=== PATIENT | female | born 1945 | race Caucasian/White ===

== ENCOUNTER 2018-03-10 22:05 | Inpatient (IN) ==
[2018-03-10] MEDS ORDERED: TYLENOL PO ONE (23:40)
--- NOTE | 2018-03-10 23:42 | PROVIDER DOCUMENTATION ---
This chart was entered by Jory Woodward Scribe, acting as scribe for Aj Venegas MD. HPI-General Adult - General Chief Complaint: General Adult Stated Complaint: COLD CHILLS Time Seen by Provider: 03/10/18 23:17 Source: patient, family (daughter and grandson at bedside) Allergies/Adverse Reactions: Patient Allergies Allergy/AdvReac Type Severity Reaction Status Date / Time codeine [Codeine] Allergy Intermediate passing out Verified 09/06/15 22:36 Home Medications: Home Medication List Medication Instructions Recorded Confirmed Last Taken Type Penicillin V Potassium 500 mg PO BID 03/08/12 09/06/15 09/06/15 History Methylcellulose [Citrucel] 500 mg PO BID 08/22/13 09/06/15 09/06/15 History Ondansetron Odt [Zofran Odt] 4 mg PO TID PRN PRN 12/16/14 09/06/15 09/06/15 History Citalopram [Celexa] 20 mg PO QAM #30 tablet 12/24/14 09/06/15 09/06/15 Rx Hyoscyamine Subl [Levsin-Sl] 0.125 mg SL TID #10 tablet 02/10/15 09/06/15 Rx Promethazine [Phenergan] 25 mg PO Q6H PRN PRN #20 tablet 02/10/15 09/06/1509/05 Rx - History of Present Illness -Gen Adult Nature of Presenting Problems: 72 yoyf c/o chills,fever, n/v, BLE pain and colostomy bag leaking. pt has hx rectal cancer, tonsillectomy, cholecystectomy and colon resection Location of Pain/Injury: reports: lower extremity (BLE) Quality of Pain: reports: fullness Severity: reports: moderate Onset/Duration: reports: this afternoon (0) Timing: reports: still present Context/Activities at Onset: reports: light activity Modifying Factors: improves with: nothing Associated Symptoms: reports: fever/chills, muscle aches, nausea, vomiting, other (colostomy bag leaking). denies: back/neck pain, diarrhea, headaches, weakness Similar Symptoms Previously?: Yes Recently seen or treated by another doctor?: Yes Review of Systems - Adult - REVIEW OF SYSTEMS - ADULT Constitutional: reports: see HPI, chills, fever. denies: fatique Eyes: reports: no symptoms reported Ears, Nose, Mouth & Throat: reports: no symptoms reported Cardiovascular: denies: chest pain, palpitations Respiratory: denies: cough, shortness of breath, wheezing Gastrointestinal: reports: see HPI, nausea, vomiting, other (colostomy bag leaking). denies: abdominal pain Genitourinary: reports: no symptoms reported Musculoskeletal: reports: see HPI, muscle aches, other (BLE edema) Integumentary: reports: no symptoms reported Neurological: denies: dizziness/vertigo, headache/migraines Psychiatric: reports: no symptoms reported Endocrine: reports: no symptoms reported Hematologic/Lymphatic: reports: no symptoms reported Allergic/Immunologic: reports: no symptoms reported All Other Systems: Reviewed and Negative Past History - Adult - PAST MEDICAL HISTORY-ADULT Review of Records: reports: Old Records Reviewed, Nursing Assessment Review, Medications Reviewed, Social history reviewed & non-contributory. Major Childhood Illnesses: reports: denies history Cardiovascular: reports: denies history Respiratory: reports: denies history Gastrointestinal: reports: cancer (hx of colon), obstruction Obstetrical/Gynecological: reports: denies history Genitourinary: reports: denies history Musculoskeletal: reports: chronic pain Neurological: reports: denies history 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) Other Conditions: reports: denies history - PRIOR SURGERIES/PROCEDURES Surgical/Procedure History: reports: cholecystectomy, tonsillectomy, other ( colostomy) - IMMUNIZATION STATUS Childhood Immunizations: See Nurse Assessment Flu Vaccine: See Nurse Assessment - FAMILY HISTORY Family History: reviewed, not pertinent - SOCIAL HISTORY Smoking: denies Substance Use: denies Alcohol Use Frequency: never Living Situation: family Physical Exam-General - PHYSICAL EXAM-ADULT Initial Vital Signs Reviewed: Yes - CONSTITUTIONAL General Appearance: alert, mild distress - EYES Eyes: PERRL/EOMI, pink conjunctivae - HEAD, EARS, NOSE, MOUTH & THROAT HENMT: moist mucous membranes, other (no teeth) - NECK Neck: full range of motion, normal inspection - RESPIRATORY Respiratory: chest non-tender, lungs clear, normal breath sounds - CARDIOVASCULAR Cardiovascular: normal peripheral pulses, regular rate, rhythm - GASTROINTESTINAL (ABDOMEN) Abdominal Exam: normal bowel sounds, soft, other (nausea and has colostomy in LLQ and is leaking on exam with redness noted) - GENITOURINARY Female Genitalia/Pelvic Exam: deferred Rectal Exam: deferred - LYMPHATIC Lymphatic: no adenopathy - MUSCULOSKELETAL Back Exam: normal inspection Extremity: pelvis stable, swelling (BLE edema but is at baseline) - SKIN Integumentary: normal turgor, warm/dry, pallor, swelling (BLE with redness), warm - NEUROLOGIC Neurologic: grossly normal, no motor/sensory deficits - PSYCHIATRIC Psych/Mental Status: normal mood/affect, normal thought content, normal thought process, oriented x 3 Progress - PLAN OF CARE/RESULTS Progress/Plan/Lab Results: Vital Signs - 8 hr 03/10/18 22:21 Temperature 98.9 F Pulse Rate 94 H Respiratory Rate 16 Blood Pressure 158/92 O2 Sat by Pulse Oximetry 95 Result Diagrams: 03/11/18 02:06 03/11/18 02:06 - REASSESSMENT Reassessment #1 Time Reassessed: 00:34 (dr at bedside) Status: unchanged Reassessment Comment: fever 101.1 Reassessment #2 Status: improving Reassessment Comment: improved turgor, good capillary refill, RRR - XRAY 1 XRAY: Bilateral XRAY Study: Chest Impression: See EMR Report - CONSULTS/PCP/HOSPITALIST Notification #1 *Consult/PCP/Hospitalist*: Dr. Kaplan Time Discussed: 03:40 Consult Disposition: Admit Departure - Departure Date of Disposition Decision: 03/11/18 Time of Disposition Decision: 03:41 DIAGNOSIS: Sepsis Qualifiers: Sepsis type: sepsis due to unspecified organism Qualified Code(s): A41.9 - Sepsis, unspecified organism Urinary tract infection Qualifiers: Urinary tract infection type: site unspecified Hematuria presence: with hematuria Qualified Code(s): N39.0 - Urinary tract infection, site not specified Leukocytosis Qualifiers: Leukocytosis type: unspecified Qualified Code(s): D72.829 - Elevated white blood cell count, unspecified Disposition: ADMITTED INPATIENT 09 Certified Medical Emergency: Emergent Condition: Stable Referrals and Follow-Ups: Josh Kaplan MD [Primary Care Provider] - - Critical Care Note This patient required my direct & personal management of CC.: No Total Time (mins): 241 Critical Care Statement: This patient required my direct personal management to treat or rule out processes, the absence of which, could potentiallly result in sudden, clinically significant life or limb threatening deterioration. Attestation - Physician/ [facility] Attestation Patient care was provided by Advanced Practice Provider:: No The physician spent face to face time with patient:: Yes Advanced Practice Provider documentation review:: Supervising physician onsite and consulted in the evaluation and care of this patient. The physician did have a face to face encounter with the patient. This chart was documented by the indicated scribe, (Jory Woodward Scribe) and accurately reflects the services I performed and decisions made by me, Aj Venegas MD, as attested by the provider's signature.
[2018-03-11 02:22] LABS: BASO# 0.03 X1000 (0.0-0.2); BASO% 0.2 % (0.0-0.8); HEMATOCRIT 32.7 % (37.0-47.0); HEMOGLOBIN 10.3 g/dL (12.0-16.0); IMM GRAN# 0.07 X1000 (0.0-0.04); IMM GRAN% 0.4 % (0.0-0.5); LYMPH# 0.33 X1000 (1.2-3.4); LYMPH% 1.7 % (20.5-51.1); MCH 30.5 PG (27-31); MCHC 31.5 g/dL (33-37); MCV 96.7 FL (81-99); MPV 9.4 FL (7.4-10.4); NEUT# 18.86 X1000 (1.4-6.5); NEUT% 95.7 % (42.2-75.2); PLT 290 X1000 (130-400); RBC 3.38 XMIL (4.2-5.4); RDW 14.8 % (11.5-14.5); WBC 19.69 X1000 (4.8-10.8)
[2018-03-11 02:29] LABS: BILIRUBIN URINE NEGATIVE (NEGATIVE); BLOOD URINE 2+ (NEGATIVE); CLARITY SL. CLOUDY (CLEAR); COLOR YELLOW; GLUCOSE URINE NEGATIVE (NEGATIVE); KETONE URINE NEGATIVE (NEGATIVE); LEUKOCYTES URINE 1+ (NEGATIVE); NITRITE URINE POSITIVE (NEGATIVE); PROTEIN URINE TRACE mg/dL (NEGATIVE); SP GRAVITY URINE 1.005; UROBILINOGEN URINE NORMAL
[2018-03-11 02:32] LABS: URINE BACTERIA 4+ /HFP
[2018-03-11 02:33] LABS: URINE EPITHELIAL CELLS <10 /HPF (<10); URINE RBC <10 /HPF (<10); URINE WBC TNTC /HPF (<10)
[2018-03-11 02:34] LABS: URINE SOURCE CLEAN CATCH
[2018-03-11 02:38] LABS: ALBUMIN 3.7 g/dL (3.5-5.0); CALCIUM 8.9 mg/dL (8.8-10.2); POTASSIUM 3.9 mmol/L (3.5-5.1); TOTAL BILIRUBIN 0.4 mg/dL (0.20-1.00); TOTAL PROTEIN 7.7 g/dL (6.3-8.3)
[2018-03-11] MEDS ORDERED: ZOSYN 3.375 GM in NS 50 ML IV ONE (03:33)
[2018-03-11] MEDS ORDERED: NS 1,000 ML IV ONE ×3 (03:36→03:42)
[2018-03-11] MEDS ORDERED: TYLENOL PO PRN (03:42)
[2018-03-11] MEDS ORDERED: ZOFRAN IV PRN (03:42)
[2018-03-11 07:07] LABS: URINE SOURCE CLEAN CATCH
[2018-03-11 07:21] LABS: BILIRUBIN URINE NEGATIVE (NEGATIVE); BLOOD URINE 1+ (NEGATIVE); CLARITY SL. CLOUDY (CLEAR); COLOR YELLOW; GLUCOSE URINE NEGATIVE (NEGATIVE); KETONE URINE NEGATIVE (NEGATIVE); LEUKOCYTES URINE 1+ (NEGATIVE); NITRITE URINE POSITIVE (NEGATIVE); PROTEIN URINE TRACE mg/dL (NEGATIVE); SP GRAVITY URINE 1.005; UROBILINOGEN URINE NORMAL
[2018-03-11 07:25] LABS: URINE BACTERIA 4+ /HFP; URINE EPITHELIAL CELLS <10 /HPF (<10); URINE WBC 20-40 /HPF (<10)
--- NOTE | 2018-03-11 07:50 | Diag Imaging Result Doc PS360 ---
EXAM: FLAT/UPRIGHT ABD/1 VIEW CHEST 03/10/2018 HISTORY: nausea and vomiting TECHNIQUE: Flat and upright abdomen with AP chest COMMENT: There is no evidence of bowel obstruction organomegaly or mass. There are numerous phleboliths in the pelvis. There is a left lower quadrant colostomy. Compared to the previous study of 02/10/2015 there is less bowel gas. The appearance the chest has not changed significantly. IMPRESSION: Nonspecific abdomen. Stable chest. Electronically signed by Cristofer Valdez 03/11/2018 7:48 AM
[2018-03-11] MEDS: ZOSYN 3.375 GM in NS 50 ML IV SCH ×3 (10:41→21:53)
[2018-03-11] MEDS: NS 1,000 ML IV SCH ×2 (11:24→21:54)
[2018-03-11] MEDS: LASIX PO SCH (12:13)
[2018-03-11] MEDS: CELEXA PO SCH (12:46)
[2018-03-11] MEDS: KLOR-CON PO SCH (12:46)
--- NOTE | 2018-03-11 13:37 | HISTORY AND PHYSICAL ---
CHIEF COMPLAINT: Fever. HISTORY OF PRESENT ILLNESS: The patient is a 72-year-old female, who presented to the ER with fevers and chills for the past couple of days. She has had some nausea and vomiting. Denies any hematemesis, melena or hematochezia. ALLERGIES: Codeine. MEDICATIONS: I do not have an accurate medication list. She does take Celexa and we will continue this and will readdress her home medications when available. REVIEW OF SYSTEMS: The patient notes that she has felt weak and fatigued. She is tired. She has had low-grade fevers and chills for the past several days. Feels as though she has had some urinary difficulty. She has had burning and pain with urination. Denies any constipation, melena, hematochezia. Denies any headaches blurred vision denies any focalized weakness. Denies any diarrhea. She has had some muscle aches. PAST MEDICAL HISTORY: Chronic lower extremity edema. History of colon cancer, currently has a colostomy. She has had recurrent colonic obstruction, chronic pain, lymphedema, chronic depression. She has had a cholecystectomy, tonsillectomy and colostomy as noted. FAMILY HISTORY: Noncontributory. SOCIAL HISTORY: Patient is , lives at home. Her daughter takes care of her. She denies smoking or drinking. PHYSICAL EXAMINATION: VITAL SIGNS: Pulse 94, respiratory rate 16, blood pressure 158/92, saturation 95% on room air. GENERAL: Patient is awake, alert. She is very pleasant to talk with. States that she is feeling much better currently. HEENT: Normocephalic, atraumatic. She is edentulous. NECK: Supple. No current JVD. CARDIOVASCULAR: Regular rate. No murmurs. CHEST: Clear, nonlabored. No wheezing. No crackles. ABDOMEN: Soft, nondistended, nontender. She does have a colostomy in the left lower quadrant. EXTREMITIES: She moves all extremities. She does have bilateral lower extremity edema, but this is her baseline. NEUROLOGIC: She is awake, alert, oriented, and pleasant to talk with. LABORATORIES: WBCs 19, platelets 290,000. Glucose 125. ASSESSMENT: 1. Sepsis, likely secondary to urinary source. 2. Urinary tract infection. 3. Leukocytosis. 4. Fever. 5. Nausea. 6. Chronic lower extremity edema. PLAN: We will continue patient in the hospital, continue antibiotics. Await urine culture and will follow. cc: Josh Kaplan MD
[2018-03-12] MEDS: NS 1,000 ML IV SCH ×4 (01:07→22:33)
[2018-03-12] MEDS: ZOSYN 3.375 GM in NS 50 ML IV SCH ×4 (05:13→22:33)
[2018-03-12] MEDS: CELEXA PO SCH (09:32)
[2018-03-12] MEDS: LASIX PO SCH (09:33)
[2018-03-12] MEDS: KLOR-CON PO SCH (09:33)
--- NOTE | 2018-03-12 23:38 | PROGRESS NOTE ---
DATE: 03/12/2018 SUBJECTIVE: Patient notes that she is feeling a little bit better. Denies any headaches, fevers or chills. PHYSICAL: Temperature 97, pulse 57, respiratory 20, BP 76/38 to 90/40.General: Patient is awake she is currently in no distress. HEENT: Normocephalic. Neck: Supple. CV: Regular rate. Chest: Clear nonlabored. Abdomen: Soft, nondistended. Extremities: Moves all extremities. Neuro: No focal changes. ASSESSMENT: 1. Sepsis . 2. Gram-negative rods bacteremia. 3. Urinary tract infection . 4. Leukocytosis. 5. Fever. PLAN: Will admit patient the hospital, continue Zosyn, will await for cultures and will follow. cc: Josh Kaplan MD
[2018-03-13] MEDS: NS 1,000 ML IV SCH ×2 (03:58→16:33)
[2018-03-13] MEDS: ZOSYN 3.375 GM in NS 50 ML IV SCH ×2 (03:58→09:09)
[2018-03-13 07:27] LABS: HEMATOCRIT 25.7 % (37.0-47.0); HEMOGLOBIN 7.9 g/dL (12.0-16.0); MCH 29.8 PG (27-31); MCHC 30.7 g/dL (33-37); MPV 9.7 FL (7.4-10.4); RBC 2.65 XMIL (4.2-5.4); RDW 14.9 % (11.5-14.5); WBC 7.22 X1000 (4.8-10.8)
[2018-03-13 07:35] LABS: ALBUMIN 2.3 g/dL (3.5-5.0); CALCIUM 7.9 mg/dL (8.8-10.2); MAGNESIUM 1.5 mg/dL (1.5-2.7); POTASSIUM 3.3 mmol/L (3.5-5.1); TOTAL BILIRUBIN 0.3 mg/dL (0.20-1.00); TOTAL PROTEIN 5.6 g/dL (6.3-8.3)
[2018-03-13] MEDS: LASIX PO SCH (09:09)
[2018-03-13] MEDS: PROTONIX IV SCH ×2 (09:09→20:17)
[2018-03-13] MEDS: CELEXA PO SCH (09:09)
[2018-03-13] MEDS: KLOR-CON PO SCH (09:09)
[2018-03-13 10:09] LABS: HEMATOCRIT 26.8 % (37.0-47.0); HEMOGLOBIN 8.2 g/dL (12.0-16.0); MCH 29.7 PG (27-31); MCHC 30.6 g/dL (33-37); MCV 97.1 FL (81-99); MPV 9.4 FL (7.4-10.4); RBC 2.76 XMIL (4.2-5.4); RDW 14.9 % (11.5-14.5); WBC 7.54 X1000 (4.8-10.8)
[2018-03-13 10:12] LABS: OCCULT BLOOD 1 NEGATIVE (NEGATIVE)
[2018-03-13] MEDS: MAXIPIME 2 GM in NS 100 ML IV SCH (16:33)
[2018-03-13] MEDS: SODIUM CHLORIDE 0.9% INJ SCH (20:17)
--- NOTE | 2018-03-14 02:59 | PROGRESS NOTE ---
DATE: 03/13/2018 SUBJECTIVE: The patient notes that she is feeling okay. Denies any complaints. Denies any fevers. Denies chills. PHYSICAL EXAMINATION: Vital Signs: Temperature 98, pulse 62, respiratory rate 20, BP 102/52. General: The patient is awake, alert. She is very pleasant to talk with. She is lying flat in the bed. HEENT: Normocephalic. Neck: Supple. Cardiovascular: Regular rate. No murmurs. Chest: Clear and nonlabored. No crackles. Abdomen: Soft and nondistended. Extremities: Moves all extremities. ASSESSMENT: 1. Sepsis secondary to Escherichia coli. 2. Escherichia coli bacteremia. 3. Escherichia coli urinary tract infection. 4. Leukocytosis. 5. Fever. 6. Nausea. 7. Hypotension, continues to improve. PLAN: Overall, the patient is improving. Interestingly, her white count has dropped from 19 to 7. Hemoglobin and hematocrit are stable at 7.9 and 25. Her E. coli in the urine appears to be separate from her E. coli in her blood as they have different sensitivities. We will place her on cefepime and we will follow. We will check a CT of her abdomen and pelvis. Further orders as needed. cc: Josh Kaplan MD
[2018-03-14] MEDS: NS 1,000 ML IV SCH ×2 (03:54→09:18)
[2018-03-14] MEDS: MAXIPIME 2 GM in NS 100 ML IV SCH ×2 (03:54→17:05)
[2018-03-14 07:27] LABS: HEMATOCRIT 24.8 % (37.0-47.0); HEMOGLOBIN 7.9 g/dL (12.0-16.0); MCH 30.2 PG (27-31); MCHC 31.9 g/dL (33-37); MCV 94.7 FL (81-99); MPV 9.7 FL (7.4-10.4); RBC 2.62 XMIL (4.2-5.4); RDW 14.4 % (11.5-14.5); WBC 6.2 X1000 (4.8-10.8)
[2018-03-14 07:59] LABS: AGAP 12; ALBUMIN 2.6 g/dL (3.5-5.0); ALKALINE PHOSPHATASE 72 U/L (32-104); BUN 12 mg/dL (8-22); CALCIUM 7.7 mg/dL (8.8-10.2); CHLORIDE 106 mmol/L (98-107); COSMO 282; CREATININE 0.8 mg/dL (0.5-0.9); ESTIMATED GFR > 60; GLUCOSE 81 mg/dL (70-104); GOT 12 U/L (10-30); GPT 8 U/L (10-36); POTASSIUM 3.1 mmol/L (3.5-5.1); SODIUM 142 mmol/L (136-145); TCO2 25 mmol/L (25-35); TOTAL PROTEIN 5.3 g/dL (6.3-8.3)
[2018-03-14] MEDS ORDERED: KLOR-CON PO ONE (08:03)
[2018-03-14] MEDS: SODIUM CHLORIDE 0.9% INJ SCH ×2 (09:17→20:15)
[2018-03-14] MEDS: KLOR-CON PO SCH (09:17)
[2018-03-14] MEDS: CELEXA PO SCH (09:17)
[2018-03-14] MEDS: PROTONIX IV SCH ×2 (09:17→20:15)
[2018-03-14] MEDS: LASIX PO SCH (09:18)
--- NOTE | 2018-03-14 10:22 | Diag Imaging Result Doc PS360 ---
EXAM: CT ABD/PELVIS W/IV CONT ONLY HISTORY: sepsis TECHNIQUE: Routine with IV contrast. COMPARISON: 02/10/2015 FINDINGS: There are bilateral pleural effusions right greater than left with bibasilar consolidation. There is cardiomegaly. There are cholecystectomy clips. Mild intrahepatic biliary prominence. Spleen, kidneys, adrenal glands, pancreas appear normal. There is diffuse anasarca new from prior study. There also are lower anterior abdominal wall ventral hernias containing bowel. Lower quadrant ostomy. Lower anterior abdominal wall ventral hernias containing bowel. More superior hernia appears slightly larger than prior. Small amount of fluid surrounds the herniated bowel loops. This was present previously but has slightly increased. No bowel distention to suggest obstruction. There are prominent retroperitoneal lymph nodes. Small amount of free fluid within the abdomen and pelvis. There is presacral edema. There is sclerosis about the sacrum and ilium suggestive of insufficiency fractures. There is moderate lumbar spondylosis. There are calcified uterine fibroids. Urinary bladder is distended. IMPRESSION: 1.Bilateral pleural effusions and bibasilar consolidation right greater than left. 2.Slight increase in size of lower abdominal wall ventral hernias with slightly increased surrounding edema. No bowel distention. 3.Diffuse anasarca. 4.Suspect sacral insufficiency fractures. 5.Left lower quadrant ostomy. 6.Distended urinary bladder. 7.Mild retroperitoneal lymphadenopathy. 8.This exam was performed using automated exposure control, adjustment of mA or kV according to patient size, and/or use of iterative reconstruction technique. Electronically signed by Betty Avila 03/14/2018 10:20 AM
--- NOTE | 2018-03-14 18:31 | PROGRESS NOTE ---
DATE: 03/14/2018 SUBJECTIVE: The patient states that she is feeling fine. Denies any chest pain or palpitations. Denies any GI or issues currently. OBJECTIVE: Vital Signs: Reviewed and stable. She is afebrile. Temperature 97.9 degrees, pulse 49, respiratory rate 22, blood pressure 104/48. General: She is awake, alert, and oriented. Patient is in no apparent distress. HEENT: Normocephalic. Neck: Supple. CARDIOVASCULAR: Regular rate. No murmurs. Chest: Clear and nonlabored. Abdomen: Soft, nondistended, nontender. No masses. Positive bowel sounds. Extremities: Moves all extremities. No erythema. Neurologic: No focal changes. Skin: Warm and dry. No rashes. ASSESSMENT: 1. Sepsis secondary to Escherichia coli. Interestingly, she appears to have an Escherichia coli in her blood that is different from the Escherichia coli in her urine. 2. Urinary tract infection secondary to Escherichia coli. 3. Leukocytosis, improved. White count is down from 19 to 7. 4. Anemia of chronic disease. Hemoglobin and hematocrit are stable. 5. Nausea, resolved. 6. Fever, resolved. PLAN: Will continue patient in the hospital. We have switched her over to cefepime. CT of the abdomen is pending and we will treat accordingly. Will continue cefepime. Will redraw blood cultures tomorrow. When they are negative, then we can begin discussing discharge planning on cefepime. cc: Josh Kaplan MD
[2018-03-15] MEDS: NS 1,000 ML IV SCH ×2 (00:41→00:42)
[2018-03-15] MEDS: MAXIPIME 2 GM in NS 100 ML IV SCH ×2 (03:50→17:50)
[2018-03-15] MEDS: LASIX PO SCH (08:15)
[2018-03-15] MEDS: CELEXA PO SCH (08:15)
[2018-03-15] MEDS: KLOR-CON PO SCH (08:15)
[2018-03-15] MEDS: SODIUM CHLORIDE 0.9% INJ SCH (08:16)
[2018-03-15] MEDS: PROTONIX IV SCH (08:16)
[2018-03-15] MEDS: LASIX IV SCH ×2 (12:23→21:26)
[2018-03-15 17:28] LABS: BASO# 0.03 X1000 (0.0-0.2); BASO% 0.5 % (0.0-0.8); EOS# 0.06 X1000 (0.0-0.7); EOS% 0.9 % (0.0-10.0); HEMATOCRIT 29.6 % (37.0-47.0); HEMOGLOBIN 9.5 g/dL (12.0-16.0); IMM GRAN# 0.06 X1000 (0.0-0.04); IMM GRAN% 0.9 % (0.0-0.5); LYMPH# 1.07 X1000 (1.2-3.4); LYMPH% 16.6 % (20.5-51.1); MCH 30.3 PG (27-31); MCHC 32.1 g/dL (33-37); MCV 94.3 FL (81-99); MONO# 0.57 X1000 (0.11-0.59); MONO% 8.9 % (1.7-9.3); MPV 9.2 FL (7.4-10.4); NEUT# 4.65 X1000 (1.4-6.5); NEUT% 72.2 % (42.2-75.2); PLT 305 X1000 (130-400); RBC 3.14 XMIL (4.2-5.4); RDW 14.3 % (11.5-14.5); WBC 6.44 X1000 (4.8-10.8)
[2018-03-15 17:38] LABS: INR 0.97; PROTIME 13.4 Seconds (11.0-16.0)
[2018-03-15] MEDS: PROTONIX PO SCH (21:27)
--- NOTE | 2018-03-16 01:19 | PROGRESS NOTE ---
DATE: 03/15/2018 SUBJECTIVE: Patient notes overall she is feeling okay. Still has lots of swelling in her lower extremities but notes that this is chronic. PHYSICAL EXAMINATION: Vital Signs: Temperature 97.7 degrees, pulse 49, respiratory 20, BP 104/48. General: Patient is awake, alert. She is in mild respiratory distress. Very pleasant to talk with. HEENT: Normocephalic. Neck: Supple. CARDIOVASCULAR: Regular rate. Chest: Positive rhonchi throughout. No crackles. No wheezing. Abdomen: Soft. Extremities: Moves all extremities. ASSESSMENT: 1. Sepsis secondary to Escherichia coli urinary tract infection. 2. Escherichia coli urinary tract infection. 3. Escherichia coli bacteremia. 4. Leukocytosis. 5. Fever. 6. Anasarca. 7. Pleural effusion with consolidation. PLAN: Patient will need 3 weeks of cefepime. Her white count is improved. She does have more swelling in lower extremities but this is chronic. We will continue her in the hospital. Continue antibiotics. Attempt to get a PICC line and we will follow. Her pleural effusion is stable. We will continue gentle diuresis and we will follow. cc: Josh Kaplan MD
[2018-03-16] MEDS: MAXIPIME 2 GM in NS 100 ML IV SCH ×2 (03:53→22:17)
[2018-03-16] MEDS: PROTONIX PO SCH ×2 (06:19→22:17)
[2018-03-16 06:31] LABS: HEMOGLOBIN 9.1 g/dL (12.0-16.0); MCH 29.5 PG (27-31); MCHC 31.4 g/dL (33-37); MCV 94.2 FL (81-99); MPV 9.4 FL (7.4-10.4); RBC 3.08 XMIL (4.2-5.4); RDW 14.5 % (11.5-14.5); WBC 5.65 X1000 (4.8-10.8)
--- NOTE | 2018-03-16 06:32 | Diag Imaging Result Doc PS360 ---
EXAM: CHEST-PORTABLE HISTORY: hypoxia TECHNIQUE: Portable chest single view COMPARISON: 02/10/2015 FINDINGS: The lungs are well expanded. The heart is not enlarged. Minimal increased interstitial markings. No consolidation. No effusion identified. IMPRESSION: Mild pulmonary edema Electronically signed by Mike Billings 03/16/2018 6:30 AM
[2018-03-16 06:48] LABS: AGAP 12; ALBUMIN 2.6 g/dL (3.5-5.0); ALKALINE PHOSPHATASE 75 U/L (32-104); BUN 12 mg/dL (8-22); CHLORIDE 99 mmol/L (98-107); COSMO 279; CREATININE 0.9 mg/dL (0.5-0.9); ESTIMATED GFR > 60; GLUCOSE 90 mg/dL (70-104); GOT 12 U/L (10-30); GPT 8 U/L (10-36); MAGNESIUM 1.1 mg/dL (1.5-2.7); POTASSIUM 2.8 mmol/L (3.5-5.1); SODIUM 140 mmol/L (136-145); TCO2 29 mmol/L (25-35); TOTAL PROTEIN 6.3 g/dL (6.3-8.3)
[2018-03-16] MEDS ORDERED: MAGNESIUM SULFATE 2 GM/S.W.I. 2 GM/50 ML IVPB IV ONE (06:49)
[2018-03-16] MEDS: LASIX IV SCH (10:04)
[2018-03-16] MEDS: CELEXA PO SCH (10:09)
[2018-03-16] MEDS: KLOR-CON PO SCH (10:09)
[2018-03-16] MEDS: POTASSIUM CHLORIDE 20 MEQ/SWI 20 MEQ/100 ML IVPB IV SCH ×2 (10:10→17:57)
[2018-03-16] MEDS ORDERED: NS 500 ML ONE (10:56)
[2018-03-16] MEDS ORDERED: NS 250 ML ONE (14:52)
--- NOTE | 2018-03-17 00:47 | PROGRESS NOTE ---
DATE: 03/16/2018 SUBJECTIVE: Patient overall notes that she is starting to feel a little bit stronger. She is still having the difficulty getting out of the bed on her own. Denies any fevers or chills. PHYSICAL EXAMINATION: Vital Signs: Temperature 97.9 degrees, pulse 49, respiratory 20, BP 104/48. General: Patient is awake, alert. She is very pleasant to talk with. HEENT: Normocephalic. Neck: Supple. CARDIOVASCULAR: Regular rate. No murmurs. Chest: Clear and nonlabored. Abdomen: Soft. Extremities: Moves all extremities. Neurologic: No changes. ASSESSMENT: 1. Leukocytosis, resolved. 2. Hypomagnesemia. We will replace. 3. Hypokalemia. We will replace. 4. Escherichia coli bacteremia. Continue cefepime. 5. Pleural effusion with consolidation, stable. 6. Anasarca, improved. 7. Lower extremity edema, improved. 8. Leukocytosis, improved. 9. Urinary tract infection. 10. Fever, appears resolved. PLAN: We will continue patient in the hospital. Blood culture a repeat is pending. When this is negative, we can place a PICC line and schedule home antibiotics. cc: Josh Kaplan MD
[2018-03-17 05:53] LABS: HEMATOCRIT 27.3 % (37.0-47.0); HEMOGLOBIN 8.6 g/dL (12.0-16.0); MCH 30.1 PG (27-31); MCHC 31.5 g/dL (33-37); MCV 95.5 FL (81-99); MPV 9.2 FL (7.4-10.4); RBC 2.86 XMIL (4.2-5.4); RDW 14.5 % (11.5-14.5); WBC 5.58 X1000 (4.8-10.8)
[2018-03-17] MEDS: PROTONIX PO SCH ×2 (06:09→20:47)
[2018-03-17 06:23] LABS: AGAP 11; ALBUMIN 2.8 g/dL (3.5-5.0); ALKALINE PHOSPHATASE 65 U/L (32-104); BUN 14 mg/dL (8-22); CALCIUM 8.4 mg/dL (8.8-10.2); CHLORIDE 98 mmol/L (98-107); COSMO 275; CREATININE 0.8 mg/dL (0.5-0.9); ESTIMATED GFR > 60; GLUCOSE 80 mg/dL (70-104); GOT 13 U/L (10-30); GPT 7 U/L (10-36); MAGNESIUM 1.6 mg/dL (1.5-2.7); POTASSIUM 3.1 mmol/L (3.5-5.1); SODIUM 138 mmol/L (136-145); TCO2 30 mmol/L (25-35); TOTAL PROTEIN 6.1 g/dL (6.3-8.3)
[2018-03-17] MEDS: KLOR-CON PO SCH (08:41)
[2018-03-17] MEDS: MAXIPIME 2 GM in NS 100 ML IV SCH ×2 (08:41→20:47)
[2018-03-17] MEDS: CELEXA PO SCH (08:41)
[2018-03-17] MEDS: POTASSIUM CHLORIDE 20 MEQ/SWI 20 MEQ/100 ML IVPB IV SCH ×2 (10:17→12:21)
--- NOTE | 2018-03-17 23:13 | PROGRESS NOTE ---
DATE: 03/17/2018 SUBJECTIVE: Patient has no new complaints. States overall she is feeling better. Has not really been out of bed. Notes that her lower extremities are much smaller than usual. PHYSICAL EXAMINATION: Vital Signs: Temperature 97.9, pulse 49, respiratory 20, BP 104/48. General: Patient is awake, alert, currently in no distress. HEENT: Normocephalic. Neck: Supple. Cardiovascular: Regular rate. Chest: Clear and nonlabored. No wheezing. Abdomen: Soft, nondistended. Extremities: Moves all extremities. She has 1+ edema in lower extremities which is much less than her usual. ASSESSMENT: 1. Escherichia coli bacteremia. 2. Escherichia coli septicemia. 3. Escherichia coli urinary tract infection. 4. Pleural effusion with consolidation, improving. 5. Anasarca, much improved. PLAN: Hopefully the patient can discharge home if Home Health and home IV antibiotics can be set up. The patient will need to be on cefepime for approximately 18 more days. cc: Josh Kaplan MD
[2018-03-18] MEDS: PROTONIX PO SCH ×2 (06:09→20:30)
[2018-03-18] MEDS: CELEXA PO SCH (09:09)
[2018-03-18] MEDS: MAXIPIME 2 GM in NS 100 ML IV SCH ×2 (09:09→20:30)
[2018-03-18] MEDS: KLOR-CON PO SCH (09:09)
--- NOTE | 2018-03-18 18:47 | PROGRESS NOTE ---
DATE: 03/18/2018 SUBJECTIVE: Patient notes that she is feeling better. Her lower extremities have less edema and swelling than she can remember in the last several years. Overall, she is doing better. PHYSICAL EXAMINATION: Vital Signs: Temp 97.8, pulse 50, respiratory 20, BP 104/47. General: Patient is awake, alert, currently in no distress. Very pleasant to talk with. HEENT: Normocephalic. Neck: Supple. Cardiovascular: Regular rate. No murmurs. Chest: Clear, nonlabored. No current crackles, no wheezing. Abdomen: Soft, nondistended. Extremities: Moves all extremities. She has trace edema with chronic edematous changes in her lower extremities as well as wrinkles from the amount of edema that is no longer present. ASSESSMENT: 1. Hypokalemia. 2. Anemia of chronic disease. 3. Sepsis, resolved. 4. Escherichia coli bacteremia. 5. Escherichia coli urinary tract infection. 6. Chronic lower extremity edema. 7. Pleural effusion, improved. 8. Anasarca, improved. PLAN: Patient will continue in the hospital until which time we can get IV home cefepime set up for the next 3 weeks total due to her bacteremia. cc: Josh Kaplan MD
[2018-03-19] MEDS: PROTONIX PO SCH ×2 (06:08→21:42)
[2018-03-19] MEDS ORDERED: CYANOCOBALAMIN IM ONE (08:34)
[2018-03-19] MEDS: MAXIPIME 2 GM in NS 100 ML IV SCH ×2 (09:02→21:42)
[2018-03-19] MEDS: KLOR-CON PO SCH (09:03)
[2018-03-19] MEDS: CELEXA PO SCH (09:03)
[2018-03-20] MEDS: PROTONIX PO SCH (06:25)
--- NOTE | 2018-03-20 08:24 | PROGRESS NOTE ---
DATE: 03/19/2018 SUBJECTIVE: The patient was seen and examined on the . She has no new complaints. States overall, she is feeling better. OBJECTIVE: Vital Signs: On physical examination, vital signs reviewed. She is afebrile. Blood pressure is stable, heart rate is stable, respiratory rate 20. General: The patient is very pleasant to talk with. She is in no current respiratory distress. HEENT: Normocephalic. Neck: Supple. Cardiovascular: Regular rate. No murmurs. Chest: Clear and nonlabored. Abdomen: Soft and nondistended. Extremities: She has trace edema, which is a marked improvement from her preadmission status. ASSESSMENT: 1. Anasarca, resolved. 2. Pleural effusion, resolved. 3. Escherichia coli urinary tract infection. 4. Escherichia coli bacteremia. 5. Sepsis secondary to Escherichia coli urinary tract infection, resolved. 6. Hypotension, resolved. 7. Leukocytosis, resolved. PLAN: We will continue the patient in the hospital. We had hoped that she would transition home with home health but her home IV antibiotic will be too expensive. We will talk with infectious disease and attempt to change the antibiotic. cc: Josh Kaplan MD MTDD
[2018-03-20] MEDS: KLOR-CON PO SCH (09:51)
[2018-03-20] MEDS: CELEXA PO SCH (09:51)
[2018-03-20] MEDS: MAXIPIME 2 GM in NS 100 ML IV SCH (09:52)
[2018-03-20] MEDS ORDERED: ROCEPHIN 1 GM in NS 50 ML IV SCH (14:00)
[2018-03-20 16:33] VITALS: BP 100/54
--- NOTE | 2018-03-22 09:50 | DISCHARGE SUMMARY ---
ADMISSION DATE: 03/10/2018 DISCHARGE DATE: 03/21/2018 DISCHARGE DIAGNOSES: 1. Sepsis secondary to Escherichia coli. 2. Escherichia coli urinary tract infection. 3. Escherichia coli bacteremia. 4. Anasarca, resolved. 5. Leukocytosis, resolved. 6. History of colon cancer. 7. Hypotension, resolved. CONSULTATIONS: None. PROCEDURES: None. BRIEF HOSPITAL COURSE: The patient is a 73-year-old female who presented to [facility]'s ER secondary to fevers and confusion. Thankfully, she continued to improve. She was noted to have a urinary tract infection, which ultimately grew out Escherichia coli. Interestingly, her Escherichia coli in her blood seemed to have different sensitivities than the urine. Therefore, we did talk with Infectious Disease, Dr. Lott, who recommended getting a CT scan to prove there was no abscess. Thankfully, there was no abscess or blockage. Her sensitivities were noted. She did have significant anasarca while she was in the hospital, and was placed on Lasix. On discharge, her legs are smaller than she notes they have been in a couple of years. We placed NEIDA hose to attempt to help this. DISPOSITION: The patient will be discharged home. Greater than 30 minutes were spent in total care. The patient will be discharged on Rocephin daily for the next 3 weeks. We will recheck a blood culture and labs in approximately 14 days, and if negative, then certainly can stop her antibiotics at a total of 21 days. No changes otherwise were made in her home medications, diet, or activity. cc: Josh Kaplan MD
== END 2018-03-20 17:53 | disposition home health service (06) | DRG 872 ==
LOC: P.ED 22:05 → P.MEDSURG 22:06
PROVIDERS: ADMIT Family Medicine; ATTEND Family Medicine
CPT/HCPCS: 36569; 71010; 71045; 74022; 74177; 80053; 81001; 82270; 83605; 83735; 84443; 85025; 85027; 85610; 86850; 86900; 86901; 87040; 87077; 87088; 87186; 94761; 94799; 96374; 97110; 97163; 97530; 99285; A9270; C9113; J0692; J0696; J1940; J2405; J2543; J3420; J3475; J3480; J7030; J7040; J7050; Q9967; S0164

== ENCOUNTER 2018-09-16 20:19 | Inpatient (IN) ==
--- NOTE | 2018-09-16 20:27 | PROVIDER DOCUMENTATION ---
HPI-Fever - General Stated Complaint: N/V/D Time Seen by Provider: 09/16/18 20:21 Source: patient, EMS Allergies/Adverse Reactions: Patient Allergies Allergy/AdvReac Type Severity Reaction Status Date / Time codeine [Codeine] Allergy Intermediate passing out Verified 09/06/15 22:36 Home Medications: Home Medication List Medication Instructions Recorded Confirmed Last Taken Type Penicillin V Potassium 500 mg PO BID 03/08/12 03/11/18 09/06/15 History Ondansetron Odt [Zofran Odt] 4 mg PO BID PRN 12/16/14 03/11/18 09/06/15 History Citalopram [Celexa] 20 mg PO QAM #30 tablet 12/24/14 03/11/18 09/06/15 Rx Furosemide [Lasix] 40 mg PO DAILY 03/11/18 03/11/18 Unknown History Potassium Chloride E.r. [Klor-Con] 10 meq PO DAILY 03/11/18 03/11/18 Unknown History - History of Present Illness-Fever Nature of Presenting Problem: N/V since about 0530 this am, several times, fever, chills, AMS, and 1 episode of diarrhea. Has history of sepsis several times this year, has a cololostomy. EMS reports temp 102.9 en route with low blood pressure, but no other abnormalities en route. 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 Cognitive Baseline: alert, oriented x3 Modifying Factors: improves with: nothing Associated Symptoms: reports: diaphoresis, fever/chills, loss of appetite, malaise, muscle aches, nausea, swelling/mass in abdomen, vomiting Similar Symptoms Previously?: Yes Recently seen or treated by another doctor?: No (Her PCP is Eusebio) - Glascow Coma Score Best Eye Response (Elizabeth): (4) open spontaneously Best Verbal Response (Holt): (5) oriented Best Motor Response (Holt): (6) obeys commands Elizabeth Total: 15 Review of Systems - Adult - REVIEW OF SYSTEMS - ADULT Constitutional: reports: see HPI, chills, fever Eyes: reports: no symptoms reported Ears, Nose, Mouth & Throat: reports: no symptoms reported Cardiovascular: reports: no symptoms reported Respiratory: reports: no symptoms reported Gastrointestinal: reports: see HPI, abdominal pain (lower abdomen, suprapubic area), diarrhea, nausea, vomiting Genitourinary: reports: no symptoms reported Musculoskeletal: reports: no symptoms reported Integumentary: reports: no symptoms reported Neurological: reports: no symptoms reported Psychiatric: reports: no symptoms reported Endocrine: reports: no symptoms reported Hematologic/Lymphatic: reports: no symptoms reported Allergic/Immunologic: reports: no symptoms reported All Other Systems: Reviewed and Negative Past History - Adult - PAST MEDICAL HISTORY-ADULT Review of Records: reports: Old Records Reviewed, Nursing Assessment Review, Medications Reviewed, Social history reviewed & non-contributory. 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) Other Conditions: reports: denies history Additional History: lymphedema bilateral legs, left worse than right - PRIOR SURGERIES/PROCEDURES Surgical/Procedure History: reports: cholecystectomy, tonsillectomy, other (c olostomy) - PRIOR HOSPITALIZATIONS Prior Hospitalizations: reports: for similar symptoms - IMMUNIZATION STATUS Childhood Immunizations: See Nurse Assessment Flu Vaccine: See Nurse Assessment - FAMILY HISTORY Family History: reviewed, not pertinent - SOCIAL HISTORY Smoking: non-smoker Substance Use: none/never Alcohol Use Frequency: never Living Situation: family Physical Exam-General - PHYSICAL EXAM-ADULT Initial Vital Signs Reviewed: Yes (Febrile, low BP) - CONSTITUTIONAL General Appearance: appears well, alert, no apparent distress - EYES Eyes: PERRL/EOMI, pink conjunctivae - HEAD, EARS, NOSE, MOUTH & THROAT HENMT: normocephalic/atraumatic, normal ENT inspection, other (Dry mucous membranes) - NECK Neck: non-tender, full range of motion - RESPIRATORY Respiratory: chest non-tender, lungs clear, normal breath sounds, no pleuratic chest pain, no respiratory distress, no accessory muscle use - CARDIOVASCULAR Cardiovascular: normal peripheral pulses, regular rate, rhythm, no edema, no gallop, no JVD, no murmur - GASTROINTESTINAL (ABDOMEN) Abdominal Exam: normal bowel sounds, soft, no organomegaly, tenderness (suprap ubic), other (colostomy LLQ). 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 as tested, grossly normal, no motor/sensory deficits - PSYCHIATRIC Psych/Mental Status: normal mood/affect, normal thought content, normal thought process, oriented x 3 Progress - PLAN OF CARE/RESULTS Progress/Plan/Lab Results: Vital Signs - 8 hr 09/16/18 20:29 Temperature 100.8 F H Pulse Rate 74 Respiratory Rate 18 Blood Pressure 94/37 O2 Sat by Pulse Oximetry 96 Laboratory Results - last 24 hr 09/16/18 09/16/18 09/16/18 21:51 21:51 21:51 WBC 12.01 H RBC 2.79 L Hgb 8.5 L Hct 26.0 L MCV 93.2 MCH 30.5 MCHC 32.7 L RDW Std Deviation 15.9 H Plt Count 225 MPV 8.8 Immature Gran % (Auto) 0.6 H Neut % (Auto) 93.6 H Lymph % (Auto) 3.3 L [place] % (Auto) 2.2 Eos % (Auto) 0.2 Baso % (Auto) 0.1 Immature Gran # (Auto) 0.07 H Neut # (Auto) 11.24 H Lymph # (Auto) 0.40 L [place] # (Auto) 0.27 Eos # (Auto) 0.02 Baso # (Auto) 0.01 Segmented Neutrophils 85 H Band Neutrophils 8 H Lymphocytes 6 L Monocytes 1 Hypochromia 2+ Poikilocytosis 2+ Anisocytosis 1+ Microcytosis 2+ Target Cells 1+ Stomatocytes 2+ PT 16.1 H INR 1.23 PTT (Actin FS) 26.4 Sodium 135 L Potassium 3.8 Chloride 102 Carbon Dioxide 24 L Anion Gap 10 BUN 13 Creatinine 0.9 Estimated GFR/1.73 m2 > 60 BUN/Creatinine Ratio 14 Glucose 107 H Calculated Osmolality 271 Calcium 7.7 L Magnesium 1.2 L Total Bilirubin 0.40 AST 18 ALT 8 L Alkaline Phosphatase 61 Creatine Kinase 116 Troponin T [id number] Pept Total Protein 5.5 L Albumin 3.1 L Globulin 2.0 Albumin/Globulin Ratio 1.0 Plasma Lactate 09/16/18 09/16/18 09/16/18 21:51 21:51 21:51 WBC RBC Hgb Hct MCV MCH MCHC RDW Std Deviation Plt Count MPV Immature Gran % (Auto) Neut % (Auto) Lymph % (Auto) [place] % (Auto) Eos % (Auto) Baso % (Auto) Immature Gran # (Auto) Neut # (Auto) Lymph # (Auto) [place] # (Auto) Eos # (Auto) Baso # (Auto) Segmented Neutrophils Band Neutrophils Lymphocytes Monocytes Hypochromia Poikilocytosis Anisocytosis Microcytosis Target Cells Stomatocytes PT INR PTT (Actin FS) Sodium Potassium Chloride Carbon Dioxide Anion Gap BUN Creatinine Estimated GFR/1.73 m2 BUN/Creatinine Ratio Glucose Calculated Osmolality Calcium Magnesium Total Bilirubin AST ALT Alkaline Phosphatase Creatine Kinase Troponin T 0.106 H [id number] Pept 19405 H Total Protein Albumin Globulin Albumin/Globulin Ratio Plasma Lactate 1.9 Orders Category Date Time Status Cardiac Monitoring DIRECTED Care 09/16/18 20:27 Active IV Insertion ORDERED Care 09/16/18 20:27 Completed CHEST-1 VIEW [RAD] Stat Exams 09/16/18 20:[address] ABD/PELVIS W/IV CONT ONLY [CT] Stat Exams 09/16/18 20:28 Taken BLOOD CULTURE [BLDCUL] Stat Lab 09/16/18 22:[address] Or[address] C DIFF TOXIN PL Stat Lab 09/16/18 21:31 Received CBC WITH DIFF [HEME] Stat Lab 09/16/18 21:51 Completed CK PROFILE [SP CHEM] Stat Lab 09/16/18 21:51 Completed CK PROFILE [SP CHEM] Stat Lab 09/16/18 23:08 Ordered COMPREHENSIVE METABOLIC PANEL [CHEM] Stat Lab 09/16/18 21:51 Completed LACTATE, PLASMA [CHEM] Lab 09/16/18 21:51 Completed LACTATE, PLASMA [CHEM] Lab 09/16/18 23:30 Uncollected LACTATE, PLASMA [CHEM] Lab 09/17/18 02:30 Uncollected MAGNESIUM [CHEM] Stat Lab 09/16/18 21:51 Completed PRO B-NATRIURETIC PEPTIDE Stat Lab 09/16/18 21:51 Completed PROTIME WITH INR [COAG] Stat Lab 09/16/18 21:51 Completed PTT [COAG] Stat Lab 09/16/18 21:51 Completed STOOL CULTURE [RM] Routine Lab 09/16/18 23:20 Ordered TROPONIN T Stat Lab 09/16/18 21:[address] W/POSS RFLX CULT [URINALYSIS] Stat Lab 09/16/18 20:27 Uncollected 0.9% Sodium Chloride Inj [Ns] 1,000 ml Med 09/16/18 20:28 Discontinued IV 999 mls/hr 0.9% Sodium Chloride Inj [Ns] 250 ml Med 09/17/18 00:01 Active IV 999 mls/hr 0.9% Sodium Chloride Inj [Ns] 500 ml Med 09/17/18 00:01 Active IV 999 mls/hr Acetaminophen [Tylenol] Med 09/16/18 20:44 Discontinued 1,000 mg PO NOW ONE Dextrose 5%-0.45% NaCl Inj [D5 1/2 Ns] 250 ml Med 09/17/18 00:15 Ordered Norepinephrine [Levophed] 8 mg IV As Directed mls/hr Ondansetron [Zofran] Med 09/16/18 20:28 Discontinued 4 mg IV NOW ONE Piperacillin/Tazobactam [Zosyn] 3.375 gm Med 09/16/18 20:28 Discontinued 0.9% Sodium Chloride Inj [Ns] 50 ml IV NOW Vancomycin 1 gm/Ns Med 09/17/18 00:02 Active 1 gm in 250 ml IV NOW Oxygen Device Stat Oth 09/16/18 20:27 Active Result Diagrams: 09/16/18 21:51 09/16/18 21:51 - REASSESSMENT Reassessment #1 Time Reassessed: 00:02 Status: improving (States feels better, however BP is hypotensive despite IVF. Also given zosyn for possible GI cause of illness. Patient appears to be close to septic, but with only 1 SIRS criteria (leukocytosis). Will still give 30ml/kg bolus and start levaphed if BP does not respond to IVF bolus. Also has very elevate pro BNP and sl elevated trop. WIll give ASA. Likely will need a bed at .) - XRAY 1 XRAY Study: Chest Impression: Abnormal (Read by me at 2307: CM, increased vascular markings, no definite infiltrate present.) - CT/MRI 1 CT Study: Abdomen Impression: Abnormal, See EMR Report (Per [facility], Dr. Dawson: Impression: 1. Marifer's pouch, LLQ stoma, unremarkable. 2. Left pelvic fluid collection may reflect hydrosalpinx or post-operative seroma. 3. No free intraperitnoeal air or fluid. 4. Right lung base pneumonia, atelectasis, or scarring. Also present in the reading: Fracture or destructive cortical changes bilateral acet abulum) - CONSULTS/PCP/HOSPITALIST Notification #1 *Consult/PCP/Hospitalist*: Dr. Mg, Hospitalist at [facility] paged at 1205 Time Discussed: 00:10 Reason/Comments: States he does not think any ICU beds are available, I should call Eusebio Consult Disposition: other #2 Consult: Eusebio paged at 00:11 Time Discussed: 00:15 Reason/Comments: Agrees to admit to ICU here on levaphed drip. Consult Disposition: Admit Departure - Departure Date of Disposition Decision: 09/17/18 Time of Disposition Decision: 00:06 DIAGNOSIS: Sepsis associated hypotension, Nausea, vomiting and diarrhea, New onset of congestive heart failure, Elevated troponin Right lower lobe pneumonia Qualifiers: Pneumonia type: due to unspecified organism Qualified Code(s): J18.1 - Lobar pneumonia, unspecified organism Hypotension Qualifiers: Hypotension type: unspecified hypotension type Qualified Code(s): I95.9 - Hypotension, unspecified Disposition: ADMITTED INPATIENT 09 Certified Medical Emergency: Emergent Condition: Poor Referrals and Follow-Ups: Josh Kaplan MD [Primary Care Provider] - - Critical Care Note This patient required my direct & personal management of CC.: Yes Total Time (mins): 45 ([facility] unstable) Critical Care Statement: This patient required my direct personal management to treat or rule out processes, the absence of which, could potentiallly result in sudden, clinically significant life or limb threatening deterioration. Attestation - Physician/ [facility] Attestation Patient care was provided by Advanced Practice Provider:: No The physician spent face to face time with patient:: Yes Advanced Practice Provider documentation review:: Supervising physician onsite and consulted in the evaluation and care of this patient. The physician did have a face to face encounter with the patient.
[2018-09-16] MEDS ORDERED: NS 1,000 ML IV ONE (20:28)
[2018-09-16] MEDS ORDERED: ZOFRAN IV ONE (20:28)
[2018-09-16] MEDS ORDERED: ZOSYN 3.375 GM in NS 50 ML IV ONE (20:28)
[2018-09-16] MEDS ORDERED: TYLENOL PO ONE (20:44)
[2018-09-16 22:24] LABS: BASO# 0.01 X1000 (0.0-0.2); BASO% 0.1 % (0.0-0.8); EOS# 0.02 X1000 (0.0-0.7); EOS% 0.2 % (0.0-10.0); HEMOGLOBIN 8.5 g/dL (12.0-16.0); IMM GRAN# 0.07 X1000 (0.0-0.04); IMM GRAN% 0.6 % (0.0-0.5); LYMPH% 3.3 % (20.5-51.1); MCH 30.5 PG (27-31); MCHC 32.7 g/dL (33-37); MCV 93.2 FL (81-99); MONO# 0.27 X1000 (0.11-0.59); MONO% 2.2 % (1.7-9.3); MPV 8.8 FL (7.4-10.4); NEUT# 11.24 X1000 (1.4-6.5); NEUT% 93.6 % (42.2-75.2); PLT 225 X1000 (130-400); RBC 2.79 XMIL (4.2-5.4); RDW 15.9 % (11.5-14.5); WBC 12.01 X1000 (4.8-10.8)
[2018-09-16 22:25] LABS: HYPOCHROM 2+; INR 1.23; MICROCYTOSIS 2+; POIKILOCYTOSIS 2+; PROTIME 16.1 Seconds (11.0-16.0); PTT 26.4 Seconds (22.3-41.8); TARGET CELLS 1+
[2018-09-16 22:26] LABS: ANISOCYTOSIS 1+; STOMATOCYTES 2+
[2018-09-16 22:35] LABS: AGAP 10; ALBUMIN 3.1 g/dL (3.5-5.0); ALKALINE PHOSPHATASE 61 U/L (32-104); BUN 13 mg/dL (8-22); CALCIUM 7.7 mg/dL (8.8-10.2); CHLORIDE 102 mmol/L (98-107); CK PROFILE 116 U/L (24-173); COSMO 271; CREATININE 0.9 mg/dL (0.5-0.9); ESTIMATED GFR > 60; GLUCOSE 107 mg/dL (70-104); GOT 18 U/L (10-30); GPT 8 U/L (10-36); MAGNESIUM 1.2 mg/dL (1.5-2.7); POTASSIUM 3.8 mmol/L (3.5-5.1); SODIUM 135 mmol/L (136-145); TCO2 24 mmol/L (25-35); TOTAL PROTEIN 5.5 g/dL (6.3-8.3)
[2018-09-16 23:00] LABS: BANDS 8 % (0-1); LYMPHS 6 % (21-51); MONO 1 % (1-9); SEGS 85 % (42-75)
[2018-09-17] MEDS ORDERED: NS 250 ML IV ONE (00:01)
[2018-09-17] MEDS ORDERED: NS 500 ML IV ONE (00:01)
[2018-09-17] MEDS ORDERED: VANCOMYCIN 1 GM/NS 1 GM/250 ML IVPB IV ONE (00:02)
[2018-09-17] MEDS ORDERED: ASPIRIN PO ONE (00:15)
[2018-09-17] MEDS ORDERED: MORPHINE IV PRN (00:17)
[2018-09-17] MEDS ORDERED: ZOFRAN IV PRN (00:17)
[2018-09-17] MEDS ORDERED: NS 1,000 ML IV ONE (00:17)
[2018-09-17] MEDS ORDERED: TYLENOL PO PRN (00:17)
[2018-09-17 01:24] LABS: BILIRUBIN URINE NEGATIVE (NEGATIVE); BLOOD URINE 1+ (NEGATIVE); GLUCOSE URINE NEGATIVE (NEGATIVE); KETONE URINE NEGATIVE (NEGATIVE); LEUKOCYTES URINE TRACE (NEGATIVE); NITRITE URINE NEGATIVE (NEGATIVE); PROTEIN URINE TRACE mg/dL (NEGATIVE); UROBILINOGEN URINE NORMAL
[2018-09-17 01:25] LABS: CLARITY CLEAR (CLEAR); COLOR YELLOW
[2018-09-17 01:45] LABS: URINE BACTERIA 3+ /HFP; URINE RBC <10 /HPF (<10); URINE SOURCE CLEAN CATCH; URINE WBC <10 /HPF (<10)
[2018-09-17 01:47] LABS: URINE EPITHELIAL CELLS >10 /HPF (<10)
[2018-09-17] MEDS ORDERED: NS 1,000 ML ONE (02:10)
[2018-09-17] MEDS: ZOSYN 3.375 GM in NS 50 ML IV SCH ×4 (05:04→20:30)
--- NOTE | 2018-09-17 07:20 | Diag Imaging Result Doc PS360 ---
EXAM: CHEST-1 VIEW - 09/16/2018 HISTORY: fever TECHNIQUE: Portable chest COMPARISON: 03/16/2018 FINDINGS: Heart size appears borderline enlarged and stable. There is mild prominence of basilar interstitial markings. There is no dense consolidation, pleural effusion, or pneumothorax identified. IMPRESSION: Stable borderline cardiomegaly. Mild prominence of basilar interstitial markings. Electronically signed by Gustavo Zuniga 09/17/2018 7:18 AM
--- NOTE | 2018-09-17 07:35 | Diag Imaging Result Doc PS360 ---
EXAM: CT ABD/PELVIS W/IV CONT ONLY - 09/16/2018 HISTORY: colitis TECHNIQUE: CT abdomen/pelvis with intravenous contrast. No oral contrast administered per request of the referring provider. COMPARISON: 03/14/2018 FINDINGS: There is infiltrate, atelectasis, and/or scarring at the posterior right base. There is a small right pleural effusion. There are no substantial abnormalities of the liver, spleen, adrenal glands, or pancreas identified. The gallbladder is surgically absent. The bilateral kidneys enhance homogeneously. There is no hydronephrosis. There are atherosclerotic calcifications noted. There are lumbar spine degenerative changes noted. There is heterogeneous bony density noted at the pelvis and sacrum similar to prior. There are postsurgical changes of distal colectomy with left lower quadrant colostomy. There is a midline lower anterior abdominal wall hernia which contains small bowel, similar to prior. There is no evidence of bowel obstruction. There is perirectal edema similar to prior. There is no other substantial bowel wall thickening identified. There are small calcified uterine fibroids similar to prior. There is an oblong ovarian cyst, hydrosalpinx, or postoperative seroma in the left pelvis similar to prior. There is no gas containing abscess identified. There is no free air or substantial free fluid identified. IMPRESSION: Infiltrate, atelectasis, and/or scarring at posterior right lung base. Pneumonia cannot be excluded. Status post distal colectomy with left lower quadrant colostomy. Midline lower anterior abdominal wall hernia which contains small bowel similar to prior. No evidence of bowel obstruction. Perirectal edema similar to prior. No gas containing abscess. No free air. [place] ovarian cyst, hydrosalpinx, or postoperative seroma in the pelvis similar to prior. The on-call radiologist provided preliminary results at 11:25 PM on 09/16/2018. This exam was performed using automated exposure control, adjustment of mA or kV according to patient size, and/or use of iterative reconstruction technique. Electronically signed by Gustavo Zuniga 09/17/2018 7:32 AM
[2018-09-17] MEDS ORDERED: MAGNESIUM SULFATE 2 GM/S.W.I. 2 GM/50 ML IVPB IV ONE ×2 (08:17→17:46)
[2018-09-17 08:44] LABS: HEMATOCRIT 25.9 % (37.0-47.0); HEMOGLOBIN 8.6 g/dL (12.0-16.0); MCH 30.7 PG (27-31); MCHC 33.2 g/dL (33-37); MCV 92.5 FL (81-99); RBC 2.8 XMIL (4.2-5.4); RDW 16.2 % (11.5-14.5); WBC 19.71 X1000 (4.8-10.8)
[2018-09-17 09:04] LABS: AGAP 10; ALBUMIN 2.8 g/dL (3.5-5.0); ALKALINE PHOSPHATASE 63 U/L (32-104); BUN 13 mg/dL (8-22); CALCIUM 7.3 mg/dL (8.8-10.2); CHLORIDE 106 mmol/L (98-107); COSMO 273; CREATININE 0.9 mg/dL (0.5-0.9); ESTIMATED GFR > 60; GLUCOSE 87 mg/dL (70-104); GOT 26 U/L (10-30); GPT 12 U/L (10-36); MAGNESIUM 1.3 mg/dL (1.5-2.7); POTASSIUM 3.7 mmol/L (3.5-5.1); SODIUM 137 mmol/L (136-145); TCO2 22 mmol/L (25-35); TOTAL PROTEIN 5.6 g/dL (6.3-8.3)
--- NOTE | 2018-09-17 09:13 | EKG Report ---
Test Performed on : 09/17/2018 06:48:08 AM Test Reason : NOEL AND HIGH TROP Blood Pressure : / mmHG Vent. Rate : 048 BPM Atrial Rate : 048 BPM P-R Int : 142 ms QRS Dur : 072 ms QT Int : 570 ms P-R-T Axes : 028 -28 036 degrees QTc Int : 509 ms Sinus bradycardia. Prolonged QT Abnormal ECG When compared with ECG of 12-AUG-2010 10:24, QT has lengthened Confirmed by Parminder Valdes MD ([id number]) on 09/21/2018 7:37:53 AM
[2018-09-17 09:19] LABS: CK INDEX 3.8 (0.0-2.5); CK-MB 8.67 ng/mL (0.0-5.0)
[2018-09-17] MEDS: CELEXA PO SCH (09:19)
--- NOTE | 2018-09-17 10:38 | HISTORY AND PHYSICAL ---
PRIMARY CARE PHYSICIAN: Dr. Kaplan. CHIEF COMPLAINT: Subjective fever, chills, altered mental status for the past several days that had progressively worsened. HISTORY OF PRESENTING ILLNESS: This is a 72-year-old female who presented to [facility] ER via EMS after she stated that she began having subjective fever, chills, altered mental status and some nausea vomiting over the past several days that progressively worsened. States that she saw her primary care physician this past Monday, just overall not feeling well, but no specific complaint. When EMS arrived, her temperature was noted to be 102.9. She had chills. Workup showed a blood pressure on arrival of 94/37 that dropped within the next several hours down to 60/42, heart rate went from 74 on arrival down to 56 and got as low as 48. Laboratory data showed a white blood cell count of 12.01. Magnesium was 1.2. Her troponin was 0.106 with a proBNP of 10,264. She denied any chest pain or palpitations. Her C diff stool was negative. We did do a CT of the abdomen and pelvis that showed an impression of an infiltrate atelectasis and/or scarring at the posterior right lung base and pneumonia could not be excluded so she was admitted to the intensive care unit, placed on a Levophed drip for further evaluation and treatment. PAST MEDICAL HISTORY: 1. Chronic lower extremity edema/lymphedema. 2. Colon cancer. 3. Recurrent colonic obstruction. 4. Chronic pain. 5. Chronic depression. PAST SURGICAL HISTORY: 1. Colostomy secondary to her colon cancer. 2. Cholecystectomy. 3. Tonsillectomy. FAMILY HISTORY: Reviewed and noncontributory. SOCIAL HISTORY: She currently lives with family. Denies any tobacco, alcohol or illicit drug use. ALLERGIES: To codeine. HOME MEDICATIONS: She takes Celexa 20 mg p.o. q.a.m., Zofran 4 mg p.o. b.i.d. p.r.n. will be held, and penicillin V 500 mg p.o. b.i.d. will be held. LABORATORY DATA: Showed a white blood cell count of 12.01, hemoglobin 8.5, hematocrit 26, platelets 225,000. PT/INR of 16.1 and 1.23. Sodium 135, potassium 3.8, chloride 102, CO2 24, BUN of 13, creatinine 0.9, glucose 107. Magnesium of 1.2. Creatine kinase of 116, troponin 0.106. ProBNP of 10,264. Urinalysis showed negative nitrites, trace white blood cells, 3+ bacteria. Stool for Clostridium difficile toxin was negative. Chest x-ray showed stable borderline cardiomegaly and mild prominence of basilar interstitial markings. CT of the abdomen and pelvis showed an infiltrate atelectasis and/or scarring at the posterior right lung base. Pneumonia cannot be excluded. Midline lower anterior abdominal wall hernia that contained small bowel similar to prior. No evidence of bowel obstruction, some perirectal edema similar to prior no free air, no gas containing abscesses. REVIEW OF SYSTEMS: She was positive for fever, chills. Denied any blurred vision, dizziness, chest pain. She has had a nonproductive cough and shortness of breath denied any abdominal pain, constipation. She was positive for 1 episode of diarrhea and some nausea, vomiting. Denied any burning or hurting with urination. PHYSICAL EXAMINATION: VITAL SIGNS: On arrival she had a temperature of a 100.8 degrees, pulse 74, respirations 18, blood pressure 94/37, saturating 96% on room air. Again EMS reported on arrival to her home, she had a temperature of 102.9 degrees. About 5 hours after arriving, her blood pressure dropped to 60/42. He was given some fluid resuscitation without much improvement to 86/48, so she was placed on a Levophed drip and is currently 132/70. GENERAL: This is a 72-year-old female who is sitting up in the bed and answers questions appropriately. HEENT: Normocephalic, atraumatic. Normal ENT inspection. Oropharynx and nares are clear. EYES: Pupils are equal, round, reactive to light and accommodation. Extraocular movements are intact. NECK: Normal inspection normal range of motion. LUNGS: Clear to auscultation bilaterally with equal lung expansion and chest wall movement. HEART: With regular rate and rhythm. No murmurs, rubs, or gallops. ABDOMEN: Soft, nontender, nondistended. Bowel sounds are present x4 quadrants. She has a colostomy to the left lower quadrant. MUSCULOSKELETAL: She has 5/5 strength x4 extremities. She is noted to have significant lymphedema, left greater than right. NEUROLOGICAL: The cranial nerves 2-12 appear grossly intact. ASSESSMENT: 1. Sepsis. 2. Right lower lobe pneumonia. 3. Hypotension. 4. Leukocytosis. 5. Hypomagnesemia. 6. Bradycardia. 7. Elevated troponin. PLAN: She was admitted to the intensive care unit, placed on telemetry. We are going to obtain an echocardiogram. Repeat serial CK and troponins. Recheck CBC, CMP, and magnesium. Give her magnesium sulfate [address] on normal saline at 75 mL an hour, Levophed per protocol, Zosyn 3.375 g IV q.6, Tylenol 650 mg p.o. q.6 hours p.r.n., Zofran 4 mg IV q.4 hours p.r.n. We will recheck a portable chest x-ray in the a.m. Urine culture is pending and blood cultures x2 are pending and we have consulted cardiology. Further orders after seen by attending and by consultants. Dictated by DAVID Cullen for Josh Kaplan MD cc: ADVID Cullen MD
[2018-09-17] MEDS: PEN VK PO SCH ×2 (12:32→21:35)
[2018-09-17 13:34] LABS: CK INDEX 3.5 (0.0-2.5); CK-MB 9.33 ng/mL (0.0-5.0)
[2018-09-17 17:29] LABS: CK INDEX 3.5 (0.0-2.5); CK-MB 7.29 ng/mL (0.0-5.0)
[2018-09-17 18:46] LABS: BILIRUBIN URINE NEGATIVE (NEGATIVE); BLOOD URINE 3+ (NEGATIVE); GLUCOSE URINE NEGATIVE (NEGATIVE); KETONE URINE NEGATIVE (NEGATIVE); LEUKOCYTES URINE NEGATIVE (NEGATIVE); NITRITE URINE NEGATIVE (NEGATIVE); PROTEIN URINE TRACE mg/dL (NEGATIVE); UROBILINOGEN URINE NORMAL
[2018-09-17 18:47] LABS: CLARITY SL. CLOUDY (CLEAR); COLOR YELLOW
[2018-09-17 19:15] LABS: URINE EPITHELIAL CELLS <10 /HPF (<10); URINE RBC 20-40 /HPF (<10); URINE WBC <10 /HPF (<10)
[2018-09-17 19:16] LABS: URINE BACTERIA 1+ /HFP; URINE CAST NONE SEEN /LPF; URINE CRYSTAL NONE SEEN /HPF; URINE SOURCE CATH; URINE YEAST NONE SEEN /HPF
--- NOTE | 2018-09-17 21:31 | CONSULTATION ---
DATE OF CONSULTATION: 09/17/2018 IMPRESSION: 1. Very mild elevation in troponin in nonspecific range in the setting of what appears to be sepsis. Suspect troponin elevation likely secondary phenomenon. There has been no chest pain and ECG is normal. 2. Acute febrile illness with low blood pressure on presentation suggesting sepsis. Source not entirely clear but possible pneumonia reported on abdominal CT which was not apparent on portable chest x-ray. 3. Colon cancer. 4. Chronic lower extremity edema predominantly on the left side related to lymphedema which seemed to develop after radiation therapy for colon cancer. RECOMMENDATIONS: 1. Supportive care with IV pressors as needed to support blood pressure. 2. Echocardiography. 3. Suggest noncontrasted chest CT scan to better evaluate for possible pneumonia. 4. Catheter urinalysis and urine culture. 5. Treat empirically for sepsis pending further clarification. HISTORY: This 72-year-old white female with past history of colon cancer, previous colectomy with subsequent colostomy, and lymphedema lower extremities postradiation therapy was admitted with weakness and recent fever and chills. She was hypotensive on presentation. She has had no chest pain and relates no prior history of cardiac problems. She was found to have significant leukocytosis. Chest x-ray was benign but abdominal CT suggested possible pneumonia in right lower lobe. She has been treated with parenteral antibiotics and intravenous Levophed to support blood pressure. When I see her she is feeling improved. She relates current symptoms and clinical presentation rather vaguely. She relates having fever and chills and feeling weak. She denies cough. She denies dysuria but relates that she has some difficulty with perception of her bladder activity ever since radiation therapy. PAST MEDICAL HISTORY: 1. Colon cancer with previous partial colectomy and colostomy. Patient is also status post radiation therapy. 2. Chronic lower extremity edema left greater than right contributed to lymphedema. 3. Recurrent colonic obstruction. 4. Depression. PAST SURGICAL HISTORY: Includes colostomy secondary to her colon cancer, cholecystectomy, tonsillectomy. ALLERGIES: She is allergic or intolerant to codeine. MEDICATIONS PRIOR TO ADMISSION: As listed. SOCIAL HISTORY: She lives with family. She does not smoke or use alcohol. She is originally from [place]. She is retired [employer]. FAMILY HISTORY: Negative for premature coronary disease. REVIEW OF SYSTEMS: Pulmonary: Negative for cough or any significant sputum production. Gastrointestinal: Noteworthy for nausea and vomiting on presentation as well as some abdominal discomfort. Constitutional: Noteworthy for fever and chills. Remainder review of systems negative/noncontributory with 14 total systems reviewed. PHYSICAL EXAMINATION: General: This is a elderly white female in no distress. Vital signs: Blood pressure 105/56, heart rate 56 and regular. Oxygen saturation 93% on room air. HEENT: Extraocular movements appear intact. Mucous membranes moist. Neck: Supple without jugular venous distention. There are no carotid bruits. Chest: Clear to auscultation bilaterally. Cardiac: Reveals a regular rate and rhythm without appreciable murmur or gallop. Abdomen: With colostomy present in the left side of the abdomen. Abdomen is soft. There is some tenderness in the right side of the abdomen to palpation. There is no rebound tenderness. Bowel sounds are audible. Extremities: Demonstrate prominent edema of the left lower extremity with very mild edema in the right lower extremity. Neurologic: Reveals her to be alert and fully oriented. Speech is fluent. She moves all 4 extremities equally well. Skin: Warm and dry. Psych: Reveals her mood to be appropriate. DATA: 12-lead EKG demonstrates sinus bradycardia and prolonged QT interval. LABORATORY DATA: Includes a white blood cell count of 19.71, hematocrit 25.9, hemoglobin 8.6, platelet count 250,000. Sodium 137, potassium 3.7, chloride 106, carbon dioxide 22, BUN 13, creatinine 0.9, glucose 87, troponin T 0.106, followup troponin T 0.134, magnesium 1.3. Portable chest x-ray is reviewed and demonstrates no acute infiltrates. cc: Layo Gonsalez MD
--- NOTE | 2018-09-17 22:45 | HISTORY AND PHYSICAL ---
ADDENDUM: CHIEF COMPLAINT: Nausea vomiting. The patient is seen and examined by myself. Full note dictated and discussed with nurse practitioner. The patient was admitted with sepsis earlier this year. She comes in with fevers, chills, nausea, vomiting with a temp at 102.9 degrees. I am going to admit her to the hospital, place her on IV antibiotics, IV fluids. She is hypotensive currently on alysa, so we are going to place her in the ICU and we will follow. cc: Josh Kaplan MD
[2018-09-18] MEDS: ZOSYN 3.375 GM in NS 50 ML IV SCH ×4 (02:30→19:11)
[2018-09-18 06:44] LABS: HEMATOCRIT 23.1 % (37.0-47.0); HEMOGLOBIN 7.4 g/dL (12.0-16.0); MCH 29.7 PG (27-31); MCV 92.8 FL (81-99); MPV 9.6 FL (7.4-10.4); RBC 2.49 XMIL (4.2-5.4); RDW 16.3 % (11.5-14.5); WBC 13.45 X1000 (4.8-10.8)
[2018-09-18 07:00] LABS: AGAP 10; ALBUMIN 2.5 g/dL (3.5-5.0); ALKALINE PHOSPHATASE 114 U/L (32-104); BUN 14 mg/dL (8-22); CALCIUM 7.5 mg/dL (8.8-10.2); CHLORIDE 109 mmol/L (98-107); COSMO 281; CREATININE 0.9 mg/dL (0.5-0.9); ESTIMATED GFR > 60; GLUCOSE 79 mg/dL (70-104); GOT 20 U/L (10-30); GPT 10 U/L (10-36); MAGNESIUM 2.1 mg/dL (1.5-2.7); POTASSIUM 3.2 mmol/L (3.5-5.1); SODIUM 141 mmol/L (136-145); TCO2 22 mmol/L (25-35); TOTAL PROTEIN 5.3 g/dL (6.3-8.3)
--- NOTE | 2018-09-18 08:06 | ECHO REPORT ---
ORDER DATE: 09/17/2018 INTERPRETING PHYSICIAN: Dr. Nelson CLINICAL INDICATIONS: CHF, pneumonia, positive troponins. M-MODE MEASUREMENTS: Left ventricle end diastole: 4.7 cm. Left ventricle end systole: 2.0 cm. Posterior wall: 0.6 cm. Interventricular septum: 0.7 cm. Left atrium: 3.4 cm. Aortic diameter: 3.7 cm. SUMMARY OF 2-DIMENSIONAL IMAGING: The left ventricular function is normal. Ejection fraction is 63%. No wall motion abnormality is noted. Question of tiny pericardial effusion. The aortic valve shows mild degree of sclerosis. Color flow mapping indicates mild degree of regurgitation. Pulmonic valve shows mild degree of regurgitation. Tricuspid valve shows mild degree of regurgitation. Inferior vena cava is dilated. Pulmonary pressure is estimated at 47 mmHg. The mitral valve opens normally. Color flow mapping unremarkable. Pulse wave Doppler of mitral inflow shows relatively normal E/A ratio. The pulmonary venous flow is normal. Tissue Doppler of septal and lateral mitral annulus averages 10 cm per second. There is no diastolic dysfunction. There is no evidence of mass and no thrombus. Right-sided chambers are slightly generous. Clinical correction recommended. cc: MD Josh Jones MD
[2018-09-18] MEDS: CELEXA PO SCH (08:59)
[2018-09-18] MEDS: LEVOPHED 8 MG in D5 1/2 NS 250 ML IV SCH (08:59)
[2018-09-18] MEDS: PEN VK PO SCH (08:59)
--- NOTE | 2018-09-18 09:38 | Diag Imaging Result Doc PS360 ---
CT THORAX W/O CONTRAST - 09/18/2018 INDICATION: recent sepsis, possible pneumonia COMPARISON: Chest x-ray from earlier FINDINGS: There are small bilateral pleural effusions. These are dependently layering. There is also mild dependent atelectasis of both lower lobes. There is trace interstitial pulmonary edema. Heart size is borderline. There is mild scattered triple-vessel calcified coronary artery disease. There is some flank soft tissue edema. There are moderate degenerative changes of the spine. No acute or suspicious bony lesion. IMPRESSION: Interstitial pulmonary edema. Bilateral pleural effusions. Body wall edema. Mild bibasilar dependent atelectasis. This exam was performed using automated exposure control, adjustment of mA or kV according to patient size, and/or use of iterative reconstruction technique Electronically signed by Reggie Steven 09/18/2018 9:35 AM
--- NOTE | 2018-09-18 09:39 | Diag Imaging Result Doc PS360 ---
CHEST-PORTABLE - 09/18/2018 INDICATION: dyspnea COMPARISON: 09/16/2018 FINDINGS: Stable borderline cardiomegaly. The pulmonary vascularity is indistinct, there is likely mild interstitial pulmonary edema. There is bibasilar lower lobe infiltrate or atelectasis, likely atelectasis as seen on the CT. There are small bilateral pleural effusions. IMPRESSION: Interstitial pulmonary edema, small pleural effusions, bibasilar atelectasis. Electronically signed by Reggie Steven 09/18/2018 9:36 AM
[2018-09-18] MEDS ORDERED: LASIX IV ONE (10:41)
[2018-09-18] MEDS ORDERED: ALBUMIN 25% IV ONE (12:46)
[2018-09-18] MEDS ORDERED: KLOR-CON PO ONE (13:57)
[2018-09-18] MEDS ORDERED: SODIUM CHLORIDE 0.9% INJ SCH (14:00)
[2018-09-18] MEDS ORDERED: PROTONIX IV SCH (14:00)
[2018-09-18 14:44] LABS: INR 1.24; PROTIME 16.2 Seconds (11.0-16.0)
--- NOTE | 2018-09-18 15:21 | PROGRESS NOTE ---
DATE: 09/18/2018 SUBJECTIVE: She does not really have any complaints. She looks actually pretty good. No major issues. She is still on pressors, not been able to effectively get that away. OBJECTIVE: Vital Signs: Her blood pressure is 104/52, heart rate 72, respiratory rate 24, temperature 98.2, satting 98 percent on room air. This is on Levophed. Cardiovascular: Regular rate and rhythm. Pulmonary: Bilateral breath sounds. Clear to auscultation. GI: Soft, nontender, nondistended. Bowel sounds are positive. Extremities: No clubbing or cyanosis. Lymphatic exam: No peripheral edema. Neurological exam: Nonfocal. Rectal: Her ostomy site looked okay to me. I did not take down the whole bag to examine, but looked okay. Stool was kind of dark brown, greenish brown, black. In any case, the patient seems to be doing okay. LAB DATA: White count 13, hemoglobin and hematocrit has dropped to 7 and 23, platelets of 219. Potassium is 3.2. Blood culture 1/2 is positive for gram-negative rods. PROBLEM LIST: 1. Septic shock associated with a gram-negative nakita bacteremia. Presumably this is from pneumonia. The chest CT, though, I not sure if it conclusively shows pneumonia and shows more pulmonary edema. Urine was negative, although Clostridium difficile was analyzed too, and it was negative. Unclear exactly what her source is, but she had a CT on admission which showed a right lung base pneumonia. Not quite clear what her source of infection is. She is still on pressors. I am going to give her some blood today, a transfusion, in an attempt to see if we can try to get her over that. Evaluate for any occult bleeding, although unlikely. She has already been CT 'd and it is not clear what her source of infection is, but hopefully the blood culture results will give us something more definitive tomorrow. 2. History of colon cancer. Aware. Continue to follow. 3. Right lower lobe pneumonia, again presumably we will continue empiric antibiotics and monitor. 4. Elevated troponin. She does not have any renal failure; may be troponin leak from hypotension. Her echocardiogram looks normal. There was no evidence of wall motion abnormality; it looked very nonspecific. In any case, we will continue to monitor. Not clear delineation of her infection. We will re-evaluate tomorrow and go from there. cc: Ovidio Carson MD
[2018-09-18 16:05] LABS: OCCULT BLOOD 1 POSITIVE (NEGATIVE)
[2018-09-18] MEDS ORDERED: NS 500 ML ONE (16:08)
[2018-09-19] MEDS: ZOSYN 3.375 GM in NS 50 ML IV SCH ×4 (01:07→20:08)
[2018-09-19] MEDS: LEVOPHED 8 MG in D5 1/2 NS 250 ML IV SCH (01:11)
[2018-09-19 06:03] LABS: BASO# 0.03 X1000 (0.0-0.2); BASO% 0.3 % (0.0-0.8); EOS# 0.08 X1000 (0.0-0.7); EOS% 0.8 % (0.0-10.0); HEMOGLOBIN 8.7 g/dL (12.0-16.0); IMM GRAN# 0.03 X1000 (0.0-0.04); IMM GRAN% 0.3 % (0.0-0.5); LYMPH# 1.06 X1000 (1.2-3.4); LYMPH% 10.6 % (20.5-51.1); MCH 28.9 PG (27-31); MCHC 32.2 g/dL (33-37); MCV 89.7 FL (81-99); MONO# 0.29 X1000 (0.11-0.59); MONO% 2.9 % (1.7-9.3); MPV 8.9 FL (7.4-10.4); NEUT# 8.54 X1000 (1.4-6.5); NEUT% 85.1 % (42.2-75.2); PLT 221 X1000 (130-400); RBC 3.01 XMIL (4.2-5.4); RDW 17.4 % (11.5-14.5); WBC 10.03 X1000 (4.8-10.8)
[2018-09-19 06:15] LABS: CALCIUM 8.2 mg/dL (8.8-10.2); POTASSIUM 3.1 mmol/L (3.5-5.1)
[2018-09-19] MEDS: SOLU-CORTEF IV SCH ×2 (09:34→16:33)
[2018-09-19] MEDS: CELEXA PO SCH (09:35)
[2018-09-19] MEDS: LASIX IV SCH (09:35)
[2018-09-19] MEDS ORDERED: KLOR-CON PO ONE (09:38)
--- NOTE | 2018-09-19 10:05 | PROGRESS NOTE ---
DATE: 09/19/2018 Patient, I think, of Dr. Josh Kaplan. SUBJECTIVE: Fever, chills, altered mental status for several days. A 72-year-old presented to [facility] via EMS. Stated she began having subjective fever, chills, altered mental status, some nausea and vomiting for the last several days, that progressively worsened. States that her primary care physician, she saw on the Monday before. She is not feeling well. No specific complaints. When EMS arrived, her temperature was noted to be 102.9. She had chills. Workup showed blood pressure 94/37, and dropped down to 60/42. Heart rate went from 74 down to 56, and got as low as 48. White count was 12,000. Magnesium 1.2. Troponin was 0.106. ProBNP was 10,264. Denied any chest pain or palpitations. Her Clostridium difficile stool was negative. CT of the abdomen and pelvis showed impression of an infiltrate or atelectasis, scarring of the posterior right lung base. Pneumonia could not be excluded. PAST MEDICAL HISTORY: 1. Chronic lower extremity edema and lymphedema. 2. Colon cancer with colostomy. 3. Recurrent colonic obstruction. 4. Chronic pain. 5. Chronic depression. PAST SURGICAL HISTORY: 1. Colostomy secondary to colon cancer. 2. Cholecystectomy. 3. Tonsillectomy. ADMISSION DIAGNOSES: 1. Infection, questionable sepsis, suspect sepsis. 2. Right lower lobe pneumonia. 3. Hypertension. 4. Leukocytosis. 5. Hypomagnesemia. 6. Bradycardia. 7. Elevated troponin. She was transferred over here to this hospital. Cardiology was consulted. Impression from Cardiology: 1. Very mild elevation in troponin, nonspecific range, setting of what appears to be sepsis, suspect troponin elevation, likely secondary phenomenon. She has not had any chest pain or signs of cardiac ischemia. EKG is normal. 2. Acute febrile illness. Low blood pressure on presentation suggesting sepsis, source not entirely clear. Possible pneumonia. 3. Colon cancer, status post colon resection, colostomy. 4. Chronic lower extremity edema, predominantly left side, related to chronic lymphedema. Apparently, this developed after colon cancer. Chest x-ray yesterday: Interstitial pulmonary edema, small pleural effusions, basilar atelectasis. PHYSICAL EXAMINATION: General: Today, she is awake and alert. She feels much better. Vital Signs: Temp 97.8 degrees, pulse 49, respirations 16, blood pressure 117/56. HEENT: Pupils are equal and round. Lungs: Clear in all lung rodriguez. Cardiovascular: Regular rhythm and rate without murmur or S3. Abdomen: Soft, nondistended. Colostomy on the left side. Extremities: No pedal edema. Urine output was 4 L. LABORATORY DATA: This morning, white count is down to 10,030, hematocrit is 27, with a hemoglobin of 8.7, platelet count is 221,000. Electrolytes unremarkable. Sodium 140, potassium 3.1, chloride 104, BUN 12, creatinine 1.0. REVIEW OF ORDERS: Celexa 20 mg every a.m., Lasix 40 mg IV daily, hydrocortisone 100 mg IV every 8 hours. She was on norepinephrine drip, Protonix 40 mg IV every 24 hours, piperacillin 3.375 grams IV every 6 hours, albumin 25% and she got one 25 gram dose yesterday. She was given some potassium as well. ASSESSMENT AND PLAN: 1. Sepsis associated with infection, gram-negative nakita bacteremia. Presumably, this is from pneumonia. Chest CT, not sure that this was conclusive, but suggestion is that there is an underlying pneumonia. She does have pulmonary venous hypertension. Clostridium difficile was negative, so will continue present antibiotics. She seems to be improving. 2. Elevated troponin. No sign of cardiac ischemia. 3. General weakness and deconditioning. 4. Blood pressure seems to be coming up, and her white count seems to be going down, so that is encouraging. cc: Roberto Gunn MD
[2018-09-19] MEDS ORDERED: NS 250 ML ONE (13:16)
--- NOTE | 2018-09-19 14:17 | GASTROENTEROLOGY CONSULTATION ---
DATE: 09/19/2018 REASON FOR CONSULTATION: Nausea, vomiting, fecal occult blood. HISTORY OF PRESENT ILLNESS: Ms. Marti Blancas is a 72-year-old woman with past medical history of rectal cancer status post resection and chemoradiation diagnosed in 2000, in remission. Prior bowel obstructions requiring resection, cholecystectomy, chronic lymphedema, iron deficiency anemia, B 12 deficiency, followed by Dr. Walsh, who presents to [facility] on 09/16 with nausea, vomiting, fever to 103 at home. She reports that her symptoms are similar to when she was hospitalized in March and found to have urosepsis with E coli bacteremia. She denies any hematemesis, blood in her ostomy, melena, cough, shortness of breath, chest pain, abdominal pain, change in her ostomy output or consistency of stool. She is not on any blood thinners or NSAIDs. Her last colonoscopy and endoscopy were done with Dr. Mcarthur less than 5 years ago. She requires B 12 injections every 3 to 4 weeks and has required iron infusions in the past with Dr. Walsh, none this year. She says that she has not noticed any dysuria, but has had some decreased urine output requiring Diaz catheter to do urine studies at the outside hospital. She had a positive Hemoccult testing and was transferred here for further evaluation by GI and Cardiology. REVIEW OF SYSTEMS: As per HPI, otherwise 12 point review of systems is negative. Notable for fever at the outside hospital of 100.8. The patient denies any weight loss. PAST MEDICAL HISTORY: As per HPI. Other notable history: Patient is on chronic penicillin for recurrent abdominal cellulitis, chronic depression, chronic pain. PAST SURGICAL HISTORY: Partial colectomy with end colostomy, multiple surgeries for small-bowel obstruction, cholecystectomy, tonsillectomy. HOME MEDICATIONS: Include Celexa, Zofran, penicillin. ALLERGIES: Codeine. FAMILY HISTORY: No family history of GI malignancies. SOCIAL HISTORY: No smoking, alcohol or drug use. PHYSICAL EXAMINATION: Vital Signs: Heart rate of 74, respiratory rate of 18, blood pressure 94/37, O2 saturation 96%. Those were her vital signs on admission. Current vital signs include a temperature 97.8 degrees, heart rate of 49, respiratory rate 16, blood pressure 117/56, O2 saturation of 98% on room air. General: The patient is awake, alert, oriented, no acute distress. HEENT: Sclerae anicteric. Moist mucous membranes. Extraocular motor intact. Neck: Supple. No JVD or lymphadenopathy. Cardiac: Bradycardic, regular. No murmurs. Lungs: Clear to auscultation bilaterally. No wheezing. Abdomen: Laparotomy scar with left lower quadrant colostomy bag with normal brown, semi solid stool. Has a ventral hernia that is reducible, nontender. Bowel sounds are present. No rebound or guarding. No ascites. Extremities: With lower extremity edema, left greater than right, consistent with history of lymphedema. No obvious rashes. Neuro: Intact and nonfocal. LABS: White count on 09/17 was 19.7 and currently 10.0, hemoglobin is 8.7 and yesterday was 7.4, received 1 unit of packed red blood cells. She is at baseline since March of 2018. No significant change. Platelets of 221,000 INR is 1.24. Sodium 140, potassium 3.1, chloride of 104, bicarbonate 24. BUN of 12, creatinine of 1.0, glucose of 82, calcium 8.2, total bilirubin 0.3. AST of 20, ALT of 10, alkaline phosphatase of 114. CK of 210. CK-MB of 7.29, troponin 0.134. Total protein 5.3, albumin of 2.5. TSH is normal. Cortisol 10.1. UA shows microscopic red blood cells and blood, trace protein. C. difficile negative on 12/10/2013, 1/ blood cultures positive for E coli. Stool culture negative. Urine culture no growth to date. X-RAYS: EKG shows prolonged QTC of 509. CT of the chest showed interstitial pulmonary edema, bilateral pleural effusions, body wall edema, mild bibasilar dependent atelectasis. CT of the abdomen and pelvis on 09/16 showed infiltrate, atelectasis and/or scarring at the posterior lung base. Pneumonia cannot be excluded status post distal colectomy with left lower quadrant colostomy, midline lower anterior abdominal wall hernia which contains small bowel,similar to prior. No evidence of obstruction. Perirectal edema is similar to prior. No gas-containing abscess. No free air. [place] ovarian cyst, hydrosalpinx or postoperative seroma in the pelvis. Prior chest x-ray on 09/18 shows interstitial pulmonary edema, small pleural effusion and bibasilar atelectasis. ASSESSMENT/PLAN: Ms. Marti Blancas is a 72-year-old woman with a remote history of rectal cancer status post partial colectomy and chemoradiation in remission, chronic iron deficiency anemia, B 12 deficiency, history of multiple small bowel obstructions requiring surgery, who presents with nausea, vomiting and fever, found to have leukocytosis and Escherichia coli bacteremia. Workup for her bacteremia has been notable for pulmonary edema versus atelectasis versus infiltrate. Urine culture has been negative to date. Clostridium difficile is negative. Stool cultures are negative. The patient denies any abdominal pain or change in her ostomy output. She denies any melena, hematemesis, or bright red blood per her rectum. No blood thinners or nonsteroidal anti-inflammatory drug use. Her leukocytosis has improved with antibiotics, including Zosyn. She did require pressors for hypotension, and she has inappropriate bradycardia in the setting of sepsis. I suspect that her bacteremia is likely urine in origin. I would recommend Infectious Disease consultation. She does not have any overt gastrointestinal bleeding and probably has chronic anemia. Her hemoglobin is at baseline for the last 6 months, and she probably needs iron infusion, although I would not give that to her right now in the setting of bacteremia. At this time, she is on a proton pump inhibitor. Her nausea and vomiting has resolved. She is afebrile and her leukocytosis is improving. She is being followed by Cardiology for bradycardia from unclear etiology. We will defer management to Dr. Gonsalez. She should follow up with Dr. Mcarthur upon discharge for routine surveillance colonoscopy plus or minus endoscopy, as well as Dr. Walsh for iron infusion once her acute infection has resolved. I see no indication for inpatient endoscopy or colonoscopy at this point. The patient can be transferred back over to [facility]. As per primary team recommendations, I have ordered her a regular diet. Thank you for this consult. Please call with any questions or concerns.
[2018-09-19] MEDS ORDERED: SODIUM CHLORIDE 0.9% INJ SCH (15:30)
[2018-09-19] MEDS ORDERED: NEXIUM IV SCH (16:00)
--- NOTE | 2018-09-19 22:38 | PULMONOLOGY CONSULTATION ---
DATE: 09/19/2018 REQUESTING PHYSICIAN: Dr. Saul Carson. REASON FOR CONSULTATION: Pneumonia with persistent septic shock. HISTORY OF PRESENT ILLNESS: Ms. Blancas is a 72-year-old white female, never smoker, who underwent chemotherapy and radiation for an anal carcinoma in 2000. She subsequently developed anal canal stenosis and bowel obstruction requiring an end-colostomy which was performed in 2007. She has developed lower extremity lymphedema following her treatment. Other complications include bowel obstruction secondary to a bezoar in the small bowel. The patient was admitted to [place] in March of this year for generalized weakness. She had a urine culture and 2 subsequent blood cultures which revealed an ESBL negative E coli. She reports she started feeling "exactly the same way" with nausea, vomiting, confusion, and fevers. Blood cultures were obtained and she received Zosyn. It appears that a UA was performed several hours after her 1st antibiotic dose and revealed no growth. She has had difficulty with hypotension requiring vasopressors since admission to the hospital on the . An echocardiogram was performed which revealed mild increase in the PA pressure at 47 with normal LV function. A CT scan of the thorax was performed which reveals consolidation, right greater than left base along with small bilateral effusions. The patient does report she had significant nausea when she was ill, along with her confusion. PAST MEDICAL HISTORY: 1. Anal cancer with subsequent complications outlined above. 2. E coli urinary tract infection with bacteremia in March as per above. 3. History of depression. 4. Status post laparotomy for bezoar as per above. 5. Status post cholecystectomy. 6. Status post tonsillectomy. SOCIAL HISTORY: The patient denies alcohol or tobacco use. She lives with family. FAMILY HISTORY: Noncontributory to current presentation. REVIEW OF SYSTEMS: Notable for chills, fevers, nausea. The patient does report she had some productive cough prior to this illness. PHYSICAL EXAMINATION: General: Reveals a well-developed, well-nourished white female resting comfortably and in no distress. She is on Levophed. Blood pressure 99/52, heart rate 63, respiratory rate 18, oxygen saturation 96%. HEENT: Pupils are equal and reactive. Oropharynx appears clear. Neck: Supple. Chest: Reveals crackles in both lung bases with bilateral rhonchi. Cardiac: S1, S2. Abdomen: Soft, with ostomy in place. Extremities: Reveal lymphedema, left greater than right lower extremity. LABORATORIES: Blood culture 09/16/2018 reveals an E coli which is ESBL negative. White blood count 10.0, hemoglobin 8.7, platelet count 121,000. Sodium 140, potassium 3.1, chloride 104, bicarbonate 24, BUN 12, creatinine 1.0. Cortisol level 2.1. IMPRESSION: A 72-year-old with 1. Mild hypoxemic respiratory failure on nasal cannula. 2. Mild bibasilar pneumonia, likely related to aspiration identified on CT scan. 3. Septic shock with Escherichia coli bacteremia. This may have been from a renal source despite negative urine culture as outlined in the history of present illness. 4. Adrenal insufficiency. The patient is currently hypotensive and on Levophed. Cortisol level should be significantly higher than 20. 5. Protein-calorie malnutrition with a total protein of 5.3 and albumin of 2.5. RECOMMENDATIONS: 1. Initiate stress dose steroids. Would recommend weaning as tolerated when her blood pressure improves. Would also recommend that she pursue a Cortrosyn stim test after her acute illness has resolved. She may have adrenal insufficiency related to prior chemo radiation. 2. Continue current antibiotic regimen. 3. Continue bronchial hygiene. 4. Diet as per the gastrointestinal service. cc: Saurav Combs MD
[2018-09-20] MEDS: SOLU-CORTEF IV SCH ×3 (01:06→17:01)
[2018-09-20] MEDS: ZOSYN 3.375 GM in NS 50 ML IV SCH ×5 (01:07→21:15)
[2018-09-20] MEDS: CELEXA PO SCH (08:45)
[2018-09-20] MEDS: NEXIUM IV SCH ×2 (08:57→20:50)
[2018-09-20] MEDS: CENTRUM SILVER PO SCH (08:58)
[2018-09-20] MEDS: ICAR-C PO SCH ×3 (08:59→20:55)
--- NOTE | 2018-09-20 09:10 | PROGRESS NOTE ---
DATE: 09/20/2018 SUBJECTIVE: She has no complaints of nausea or pain at this time. She has not noticed any more blood in her colostomy. OBJECTIVE: Temperature 97.6 degrees, pulse 44, respirations 16, and blood pressure 117/57. Pupils are equal and round. Lungs are clear in all lung rodriguez Cardiovascular exam regular rhythm and rate without murmur or S3. Abdomen is soft. Skin is warm and dry. Urine output is 3800 mL. ASSESSMENT AND PLAN: 1. Mild hypoxemic respiratory failure on nasal cannula right now. She has mild bibasilar pneumonia, likely related to aspiration, which was identified on CAT scan. 2. Septic shock. E. coli bacteremia may have been from renal source despite her negative culture. Continue present antibiotics. 3. Adrenal insufficiency. She was on some Levophed and we have given her cortisol. Cortisol level should be significantly higher than 20 so giving her stress doses of cortisol. 4. Protein calorie malnutrition, protein was 5.3 and albumin 2.5. We will continue to encourage p.o. intake. 5. She is concerned about her colostomy bag and the feeding. We will ask Swathi to look at that and GI as well. Continue antibiotic regimen and given bronchial hygiene. Blood pressure seems to have improved. REVIEW OF ORDERS: She is on Celexa 20 mg every morning, Lasix 40 mg a day, hydrocortisone 100 mg IV q.8 hours, iron carbonyl ascorbic acid 1 b.i.d. and multivitamin daily. She is on Zosyn 3.375 g IV q.6 hours. White count yesterday was down to 10,000. Chemistries yesterday reviewed. We will check electrolytes and CBC again in the morning. cc: Roberto Gunn MD
[2018-09-20] MEDS: LASIX IV SCH (09:14)
--- NOTE | 2018-09-20 14:26 | GASTROENTEROLOGY PROGRESS NOTE ---
DATE: 09/20/2018 SUBJECTIVE: Resting in bed. She is feeling better. She complains of problems with the colostomy opening. According to the nurse, her colostomy opening is inverted. She has abdominal wall hernia next to it. The patient is requesting a consultation with Dr. Woodward to evaluate her colostomy. She had a colonoscopy done by Dr. Peters many years ago when she was diagnosed with rectal cancer. The patient is supposed to be seen with the wound nurse today. She denies any nausea, vomiting, vomiting blood, or blood in the stools. She sometimes does see blood at the colostomy site from irritation of the skin. OBJECTIVE: Vital Signs: Temperature of 98.1 degrees, pulse of 51, respiratory rate 20, blood pressure 120/53, saturating 92% on room air. Body weight of 135 pounds 1.6 ounces, BMI 25.3 kg. General: The patient is moderately built, moderately nourished, lying in bed in no acute distress. HEENT: Pale conjunctivae. No icterus. Neck: Supple. Abdomen: Soft. Colostomy bag in place. There is abdominal hernia. Extremities: No cyanosis, clubbing. She has bilateral lower extremity lymphedema, left more than the right. Neurologic: She is alert, awake, oriented x3. LABORATORY DATA: Hemoglobin and hematocrit are 8.7 and 27, white count of 10.03, platelet count of 221,000. Sodium 140, potassium 3.1, chloride 104, bicarb 24, anion gap 12, BUN of 12, creatinine 1, glucose of 82, calcium is 8.2. Cortisol is 10.1. Urine culture: No growth. Blood culture showed Escherichia coli in 1 out of the 2 culture sets. Stool culture was negative. IMPRESSION AND PLAN: 1. Mild hypoxic respiratory failure, on nasal cannula, is improved. The patient had mild bibasilar pneumonia, likely secondary to aspiration. She is on antibiotics. 2. Escherichia coli bacteremia. She is on antibiotics per primary team. 3. Renal insufficiency. She is getting cortisol. She is weaning down from her pressors. 4. Anemia. The patient denies any signs of overt gastrointestinal bleeding. She follows with Dr. Mcarthur. She wants to see Dr. Mcarthur as an outpatient to pursue esophagogastroduodenoscopy and colonoscopy. 5. History of rectal cancer, status post colostomy, with problems with inversion of the colostomy stoma and abdominal wall hernia. She is requesting consult with Dr. Woodward. I have spoken with the patient's nurse. We will place a consult to Dr. Woodward to evaluate the patient's colostomy site. 6. Protein calorie malnutrition. Will continue to encourage oral intake. 7. Iron-deficiency anemia. The patient sees Dr. Walsh as an outpatient for iron infusions. She cannot take oral iron. 8. Will try iron-C twice daily and multivitamins once daily. 9. Will continue on Nexium twice daily for gastrointestinal prophylaxis. 10. The patient will be on regular diet. Will sign off at this time. The patient will follow with Dr. Mcarthur as outpatient. Please call us with any further questions. cc: MD Josh Gimenez MD Dr. Schmidt
--- NOTE | 2018-09-20 19:20 | CONSULTATION ---
DATE OF CONSULTATION: 09/20/2018 HISTORY OF PRESENT ILLNESS: Ms. Marti Blancas is a 72-year-old white female who has a history of anal cancer with chemoradiation. After that treatment she required an end colostomy per Dr. Peters. Her colostomy has changed over the years and now is inverted and it is difficult for her to manage with a bag. She is concerned about 2 recent hospitalizations for infection and is concerned whether her ostomy is the cause of her recurrent sepsis. She has had a recent colonoscopy per Dr. Mcarthur. PHYSICAL EXAMINATION: On exam Ms. Blancas is in our ICU. She is frail. She is in no acute distress. She is hemodynamically satisfactory. She is awake and cooperative. On evaluation of her abdomen she has a midline incision with a large ventral hernia. She has a left-sided end colostomy which is at the skin level. It is viable. It does have output and she has a bag on this ostomy. She does have lymphedema involving her lower extremities especially on the left. IMPRESSION: 1. Left-sided colostomy that is at the skin level and hard to manage and bag. It is functional. 2. She has a large ventral hernia after a midline incision. PLAN: It would require moving her colostomy, probably using a midline incision and repairing her ventral hernia at the same time. This is major surgery in a patient that is quite frail. We will ask our ostomy nurse to help go over managing this ostomy with her and see if there are any hints on bagging this ostomy. It would be best, I think in the patient in her condition, if we can treat this ostomy conservatively. cc: Kristi Woodward MD
--- NOTE | 2018-09-21 00:33 | PULMONOLOGY PROGRESS NOTE ---
DATE: 09/20/2018 SUBJECTIVE: The patient is awake, alert, and conversant. She is without specific complaints. She has limited p.o. intake. OBJECTIVE: Vital Signs: The patient afebrile over the last 24 hours. Blood pressure 111/55, heart rate 56, respiratory rate 23, oxygen saturation 96% on room air. HEENT: Pupils are equal and reactive. Oropharynx appears clear. Neck: Supple. Chest: Reveals crackles in both lung bases. Cardiac: S1, S2. Abdomen: Soft. Extremities: Reveal lymphedema, left greater than right lower extremity. LABORATORIES: Microbiology reveals no new data. There is no CBC today or chemistry. IMPRESSION: A 72-year-old with 1. Mild hypoxemic respiratory failure, now on room air. 2. Aspiration pneumonia. 3. Septic shock with E coli bacteremia. 4. Adrenal insufficiency. 5. Protein calorie malnutrition. RECOMMENDATIONS: 1. The patient is doing well off Levophed. We will transition her to oral steroids tomorrow. 2. Continue current antibiotic regimen. 3. Continue bronchial hygiene. 4. Diet has been advanced to regular. cc: Saurav Combs MD
[2018-09-21] MEDS: ZOSYN 3.375 GM in NS 50 ML IV SCH ×4 (01:05→21:00)
[2018-09-21] MEDS: SOLU-CORTEF IV SCH ×2 (01:05→08:56)
[2018-09-21 06:50] LABS: BASO# 0.01 X1000 (0.0-0.2); BASO% 0.1 % (0.0-0.8); HEMOGLOBIN 8.8 g/dL (12.0-16.0); LYMPH# 0.86 X1000 (1.2-3.4); LYMPH% 8.7 % (20.5-51.1); MCH 28.9 PG (27-31); MCHC 32.6 g/dL (33-37); MCV 88.8 FL (81-99); MPV 9.4 FL (7.4-10.4); NEUT# 8.64 X1000 (1.4-6.5); NEUT% 87.2 % (42.2-75.2); PLT 262 X1000 (130-400); RBC 3.04 XMIL (4.2-5.4); RDW 16.5 % (11.5-14.5); WBC 9.91 X1000 (4.8-10.8)
[2018-09-21 07:15] LABS: CALCIUM 8.2 mg/dL (8.8-10.2); MAGNESIUM 1.3 mg/dL (1.5-2.7); POTASSIUM 2.5 mmol/L (3.5-5.1)
--- NOTE | 2018-09-21 07:24 | Diag Imaging Result Doc PS360 ---
EXAM: CHEST-PORTABLE INDICATION: abnormal exam TECHNIQUE: One view COMPARISON: 09/18/2018 FINDINGS: There has been interval placement of a left PICC line. The tip projecting over the region of the atriocaval junction in the expected position. Mild interstitial thickening suggesting mild edema is approximately stable. Mild pulmonary venous congestion is unchanged. The minimal basilar atelectasis appears to have improved slightly. No new consolidation is identified. Cardiac silhouette is stable. IMPRESSION: Interval placement of left PICC line and improvement of the mild basilar atelectasis. Stable chest, otherwise. Electronically signed by Otf Gabriel 09/21/2018 7:21 AM
[2018-09-21] MEDS ORDERED: MAGNESIUM SULFATE 2 GM/S.W.I. 2 GM/50 ML IVPB IV ONE (07:36)
[2018-09-21] MEDS ORDERED: POTASSIUM CHLORIDE 40 MEQ/SWI 40 MEQ/100 ML IVPB IV ONE (07:37)
[2018-09-21] MEDS: PREDNISONE PO SCH (08:55)
[2018-09-21] MEDS: CENTRUM SILVER PO SCH (08:55)
[2018-09-21] MEDS: CELEXA PO SCH (08:56)
[2018-09-21] MEDS: NEXIUM IV SCH ×2 (08:56→21:01)
[2018-09-21] MEDS: LASIX IV SCH (08:56)
[2018-09-21] MEDS: ICAR-C PO SCH ×2 (08:57→21:01)
--- NOTE | 2018-09-21 09:10 | EKG Report ---
Test Performed on : 09/20/2018 9:05:33 PM Test Reason : ICU. No order in [place] Blood Pressure : / mmHG Vent. Rate : 062 BPM Atrial Rate : 062 BPM P-R Int : 144 ms QRS Dur : 080 ms QT Int : 482 ms P-R-T Axes : 069 -34 052 degrees QTc Int : 489 ms Normal sinus rhythm. Possible Left atrial enlargement Left axis deviation Abnormal ECG When compared with ECG of 17-SEP-2018 06:48, No significant change was found Confirmed by Braxton Whitfield MD ([id number]) on 09/23/2018 8:21:45 PM
--- NOTE | 2018-09-21 09:51 | PROGRESS NOTE ---
DATE: 09/21/2018 SUBJECTIVE: Ms. Blancas was feeling better. She said she had a little bit of chest discomfort like a gas bubble and finally got relief, but she does feel better overall. OBJECTIVE: Vital Signs: Temperature 97.9 degrees, pulse 77, respirations 27, blood pressure 121/83. Eyes: Pupils are equal and round. Lungs: Clear in all lung rodriguez. Cardiovascular: Regular rate without murmur or S3. Abdomen: Soft, nondistended. Colostomy clear. No sign of bleeding. : Urine output was 3200 mL. X-RAYS: Chest x-ray: Interval placement of left PICC line. There is improvement in mid basilar atelectasis. Stable chest otherwise. ASSESSMENT AND PLAN: 1. Mild hypoxemic respiratory failure now on room air, doing well. Good air and gas exchange. 2. Aspiration pneumonia. 3. Septic shock with Escherichia coli bacteremia. Continue present antibiotics. 4. Adrenal insufficiency. 5. Protein calorie malnutrition. The patient is off the Levophed. Blood pressures seem to be doing well. Her new colostomy bag Dr. Woodward is evaluating. Protein calorie malnutrition with a pre-albumin of 5.3, so encourage oral intake. It seems like we are making good progress. REVIEW OF ORDERS: She is on Celexa 20 mg a day, Tylenol 650 mg p.o. q. 6 hours p.r.n., Lasix 40 mg IV daily, hydrocortisone 100 mg IV q. 8 hours, Iron carbinol, ascorbic acid 1 p.o. b.i.d., multivitamin and mineral 1 a day, Zosyn 3.375 g IV q. 6 hours. We did give her some magnesium and some potassium. REVIEW OF LABS: Her labs this morning: White count 9910, hematocrit 27, hemoglobin 8.8 which is stable, platelet count 260,000. Electrolytes: Sodium 140, potassium 2.5, chloride 98, BUN 19, creatinine 1.0. So, I have given her some IV magnesium 2 g and IV potassium. We will also start her on p.o. potassium. cc: Roberto Gunn MD
[2018-09-21] MEDS: KLOR-CON PO SCH (14:00)
--- NOTE | 2018-09-21 14:43 | PROGRESS NOTE ---
DATE: 09/21/2018 SUBJECTIVE: Ms. Lynette Blancas's left colostomy is functioning. It is at skin level and the opening within the skin has become smaller over the years. She has been hospitalized twice since March with sepsis and it was felt was a urinary tract infection at one point, but we are unsure of the etiology now. She has no evidence of surrounding infection involving her ileostomy. She would be a high surgical risk with because she is frail. She does have a midline ventral hernia. PLAN: Swathi our enterostomal nurse returns Monday and will discuss care of her ostomy with her and the patient and family. cc: Kristi Woodward MD
[2018-09-22] MEDS: ZOSYN 3.375 GM in NS 50 ML IV SCH ×4 (02:28→19:41)
[2018-09-22 06:49] LABS: ALBUMIN 2.8 g/dL (3.5-5.0); CALCIUM 8.2 mg/dL (8.8-10.2); CREATININE 1.1 mg/dL (0.5-0.9); POTASSIUM 2.8 mmol/L (3.5-5.1); TOTAL BILIRUBIN 0.22 mg/dL (0.20-1.00); TOTAL PROTEIN 5.5 g/dL (6.3-8.3)
[2018-09-22] MEDS: LASIX IV SCH (08:05)
[2018-09-22] MEDS: PREDNISONE PO SCH (08:05)
[2018-09-22] MEDS: CELEXA PO SCH (08:06)
[2018-09-22] MEDS: CENTRUM SILVER PO SCH (08:06)
[2018-09-22] MEDS: KLOR-CON PO SCH (08:06)
[2018-09-22] MEDS: NEXIUM IV SCH (08:22)
[2018-09-22] MEDS: ICAR-C PO SCH (08:23)
[2018-09-22] MEDS ORDERED: POTASSIUM CHLORIDE 40 MEQ/SWI 40 MEQ/100 ML IVPB IV ONE (09:40)
--- NOTE | 2018-09-22 10:34 | PROGRESS NOTE ---
DATE: 09/22/2018 SUBJECTIVE: Ms. Blancas feels better. Feels a little stronger she remains afebrile. OBJECTIVE: Temperature 98 degrees, pulse 74, respirations 19, blood pressure 112/57. Pupils are equal round. Lungs are clear in all lung rodriguez. Cardiovascular regular rate without murmur or S3. Abdomen is soft. Skin is warm and dry. Urine output was 3400. ASSESSMENT AND PLAN: 1. She has a left colostomy which is functioning. It is at skin level and the opening within the skin. This has become smaller over the years. She has been hospitalized twice since March with sepsis and felt it was urinary tract infection, but are unsure of etiology now. Dr. Woodward is looking at the ileostomy to see if there is any sign of infection. She would be at high surgical risk because she is frail and she has midline ventral hernia. 2. Aspiration pneumonia suspected with mild hypoxic respiratory failure. She is improving. Continue current antibiotics. Her chest x-ray from yesterday, interval placement of PICC and line improvement in the mild bibasilar atelectasis. 3. Septic shock with Escherichia coli bacteremia. 4. Adrenal insufficiency. 5. Protein calorie malnutrition, encourage p.o. intake. The patient is off the Levophed. REVIEW OF HER ORDERS: She is on Celexa 20 mg q.a.m., Nexium 40 mg which we will stop. She has refused these so we will stop her. She is on Lasix 40 mg IV daily. We will stop her iron. She has refused p.o. iron and says it makes her "very constipated". She is on multivitamin and we are supplementing her potassium and magnesium. We will check again and will give her p.o. potassium as well as IV today. cc: Roberto Gunn MD
[2018-09-23] MEDS: ZOSYN 3.375 GM in NS 50 ML IV SCH ×4 (01:08→20:02)
[2018-09-23 07:14] LABS: ALB/GLOB RATIO 1.1; ALBUMIN 2.8 g/dL (3.5-5.0); CALCIUM 7.7 mg/dL (8.8-10.2); CREATININE 1.1 mg/dL (0.5-0.9); POTASSIUM 3.8 mmol/L (3.5-5.1); TOTAL BILIRUBIN 0.18 mg/dL (0.20-1.00); TOTAL PROTEIN 5.4 g/dL (6.3-8.3)
--- NOTE | 2018-09-23 07:21 | PROGRESS NOTE ---
DATE: 09/23/2018 SUBJECTIVE: Ms. Blancas is resting comfortably. Had a good night. Remains afebrile. OBJECTIVE: Temperature is 98.6 degrees, pulse 47, respirations 17, blood pressure 111/63. Pupils are equal and round. Lungs are clear anterolaterally. Cardiovascular Examination: Regular rhythm and rate without murmur or S3. Abdomen is soft. Skin is warm and dry. Urine output is 3700 mL. ASSESSMENT AND PLAN: 1. Left colostomy which is functioning. Evaluating to see if this could be a possible source of infection. She is eating. Continue to treat her for sepsis. Suspect it came from urinary track. She grew, from one of her blood cultures, Escherichia coli, one out of two. Stool culture was negative for salmonella, shigella, Campylobacter, Escherichia coli. Dr. Woodward is evaluating. Discussed care of her ostomy. She also has a ventral hernia. 2. Aspiration pneumonia, better. 3. Presented with sepsis and Escherichia coli bacteremia. 4. Adrenal insufficiency. 5. Protein calorie malnutrition. Encourage oral intake. REVIEW OF HER ORDERS: I do not see any change. She is on Zosyn 3.375 g IV q.6. She also was taking Celexa, which she took at home 20 mg q.a.m. and we are giving her Lasix 40 mg IV daily. Last chest x-ray was on the . Interval placement of left PICC line. Improvement in mild bibasilar atelectasis. Repeat another chest x-ray in the morning. We will probably repeat a Chem- 22 and a CBC in the morning as well, as well as a magnesium. I think she is ready to move to the floor. cc: Roberto Gunn MD
--- NOTE | 2018-09-23 08:29 | Diag Imaging Result Doc PS360 ---
CHEST-PORTABLE - 09/23/2018 INDICATION: pneumonia COMPARISON: 09/21/2018 FINDINGS: Stable left PICC line in good position. Stable mild cardiomegaly. Stable mild infiltrate or atelectasis in the left lower lobe. No new abnormalities. IMPRESSION: No change from prior. Electronically signed by Reggie Steven 09/23/2018 8:27 AM
[2018-09-23] MEDS: KLOR-CON PO SCH (08:45)
[2018-09-23] MEDS: PREDNISONE PO SCH (08:46)
[2018-09-23] MEDS: CELEXA PO SCH (08:46)
[2018-09-23] MEDS: LASIX IV SCH (08:46)
[2018-09-23] MEDS: CENTRUM SILVER PO SCH (08:46)
[2018-09-24] MEDS: ZOSYN 3.375 GM in NS 50 ML IV SCH ×4 (01:53→23:45)
[2018-09-24 06:55] LABS: ALB/GLOB RATIO 1.1; ALBUMIN 2.8 g/dL (3.5-5.0); CREATININE 1.1 mg/dL (0.5-0.9); TOTAL BILIRUBIN 0.15 mg/dL (0.20-1.00); TOTAL PROTEIN 5.4 g/dL (6.3-8.3)
[2018-09-24] MEDS: LASIX IV SCH (11:44)
[2018-09-24] MEDS: CENTRUM SILVER PO SCH (11:44)
[2018-09-24] MEDS: CELEXA PO SCH (11:44)
[2018-09-24] MEDS: KLOR-CON PO SCH (11:44)
[2018-09-24] MEDS: PREDNISONE PO SCH (11:44)
[2018-09-24] MEDS ORDERED: CYANOCOBALAMIN IM ONE (13:31)
--- NOTE | 2018-09-24 13:34 | PROGRESS NOTE ---
DATE: 09/24/2018 SUBJECTIVE: Ms. Blancas is feeling a little better, a little stronger. Breathing is comfortable. OBJECTIVE: Temperature is 97.7 degrees, pulse 72, respirations 18, blood pressure 119/56. Pupils are equal and round. Lungs are clear in all lung rodriguez. Cardiovascular Examination: Regular rhythm and rate without murmur or S3. Urine output was 4800 mL. Chest x-ray, PICC line on the left in good position. No sign of infiltrates. ASSESSMENT AND PLAN: 1. Left colostomy which is functioning. Dr. Pedrito Woodward, wound care, is going to look and see, not sure at all that the infection is coming from her colostomy. We are treating her for sepsis with Escherichia coli and suspect it may be a urinary source. She appears much better and stronger, and eating well. We can move her to the floor. 2. Aspiration pneumonia, which is better. Chest x-ray looks good. 3. Sepsis with Escherichia coli bacteremia, so she will need several weeks of antibiotics. 4. Adrenal insufficiency. Aware. 5. Protein calorie malnutrition. Encourage oral intake. I think we are making progress. Hopefully, she can be discharged soon. REVIEW OF HER ORDERS: She is on Celexa 20 mg q.a.m., Lasix 40 mg IV daily, prednisone 15 mg a day, multivitamin 1 a day, and she is on Zosyn 3.375 g daily. E. coli was growing from 1 of 2 blood cultures. Urine did not grow anything. cc: Roberto Gunn MD
[2018-09-25] MEDS: ZOSYN 3.375 GM in NS 50 ML IV SCH ×3 (05:45→18:39)
--- NOTE | 2018-09-25 07:51 | PULMONOLOGY PROGRESS NOTE ---
DATE: 09/24/2018 SUBJECTIVE: The patient is awake, alert, and conversant. She reports she feels better. She denies specific complaints. OBJECTIVE: Vital Signs: Maximum temperature in the last 24 hours of 99.0. Blood pressure 108/62, heart rate 65, respiratory rate 18, oxygen saturation 97% on room air. HEENT: Pupils are equal and reactive. Oropharynx appears clear. Neck is supple. Chest reveals minimal crackles at the right base. Cardiac Examination: S1, S2. Abdomen is soft. Extremities reveal chronic lymphedema, which has diminished. It remains greater on the left than on the right. Laboratories: No new chest x-ray data. No new microbiology data. White blood count 9.91, hemoglobin 8.8, platelet count 262,000. Sodium 138, potassium 4.0, chloride 97, bicarbonate 33, BUN 24, creatinine 1.1. IMPRESSION: A 72-year-old with: 1. Pneumonia. 2. Septic shock with Escherichia coli bacteremia. 3. Adrenal insufficiency. 4. Protein calorie malnutrition. 5. Hypoxemic respiratory failure with subsequent resolution. PLAN: 1. Consider transitioning patient to oral antibiotics. 2. We will decrease prednisone dose. 3. Continue bronchial hygiene. 4. Encourage p.o. intake. 5. Recommend discontinuing Diaz catheter, given prior urinary tract infections. cc: Saurav Combs MD
[2018-09-25] MEDS: KLOR-CON PO SCH (09:22)
[2018-09-25] MEDS: CENTRUM SILVER PO SCH (09:22)
[2018-09-25] MEDS: LASIX IV SCH (09:23)
[2018-09-25] MEDS: CELEXA PO SCH (09:23)
[2018-09-25] MEDS: PREDNISONE PO SCH (09:23)
--- NOTE | 2018-09-25 16:51 | PROGRESS NOTE ---
DATE: 09/25/2018 SUBJECTIVE: The patient has no major complaints. She is very much concerned about going home. OBJECTIVE: Vital Signs: Blood pressure is 110/52, heart rate of 68, respiratory rate 18, temperature 98.6 degrees, 99% on room air. Cardiovascular: Regular rate and rhythm. Pulmonary: Bilateral breath sounds. Clear to auscultation. GI: Soft, nontender, nondistended. Bowel sounds are positive. LABORATORY DATA: I do not have any data today. Her B12 level was greater than 2,000. ASSESSMENT AND PLAN: 1. History of malfunctioning colostomy. Seems to be doing okay. Dr. Woodward feels like she is stable to go home and follow up with him as an outpatient. 2. Aspiration pneumonia. Clinically she has improved. 3. Escherichia coli bacteremia. She will need IV antibiotics but presumably we have set that up. She is on Zosyn. 4. We may be able transition her to oral antibiotics. She has been on IV antibiotics since yesterday. But in any case, she seems to have stabilized. I think she can be transitioned to oral antibiotics. Based on sensitivities we could probably do Keflex I guess because it is sensitive to cefazolin. cc: Ovidio Carson MD
--- NOTE | 2018-09-25 20:03 | PULMONOLOGY PROGRESS NOTE ---
DATE: 09/25/2018 SUBJECTIVE: The patient is awake, alert, and conversant. She is without specific complaints. She reports she did sit on the side of the bed today. She is anxious about going home. OBJECTIVE: The patient has been afebrile for the last 24 hours. Blood pressure 110/52, heart rate 68, respiratory rate 18, oxygen saturation 99% on room air. HEENT: Pupils are equal and reactive. Oropharynx is clear. Neck: Supple. chest: Good air entry bilaterally without wheezing or rhonchi. Cardiac: S1-S2. Abdomen: Soft without hepatosplenomegaly. Extremities: Chronic lymphedema, left greater than right leg. LABORATORIES: No new culture data. IMPRESSION: 1. A 72-year-old with pneumonia, status post 8 days of therapy. 2. Septic shock with Escherichia coli bacteremia. 3. Adrenal insufficiency. 4. Hypoxemic respiratory failure, now resolved. RECOMMENDATIONS: 1. Continue prednisone dose 10 mg per day. Recommend patient be weaned further as an outpatient by her primary care physician who might consider performing a cosyntropin stem test at a later date. 2. Consider a course of oral antibiotics. 3. Continue bronchial hygiene. 4. No new pulmonary recommendations. Okay for discharge from a pulmonary standpoint. cc: Saurav Combs MD
[2018-09-26] MEDS: ZOSYN 3.375 GM in NS 50 ML IV SCH ×3 (00:47→12:45)
[2018-09-26] MEDS ORDERED: LASIX PO SCH (09:00)
[2018-09-26] MEDS: CENTRUM SILVER PO SCH (09:39)
[2018-09-26] MEDS: CELEXA PO SCH (09:39)
[2018-09-26] MEDS: KLOR-CON PO SCH (09:39)
[2018-09-26] MEDS: PREDNISONE PO SCH (09:40)
--- NOTE | 2018-09-26 14:59 | DISCHARGE SUMMARY ---
ADMISSION DATE: 09/17/2018 DISCHARGE DATE: 09/26/2018 CONSULTATIONS: 1. Dr. Layo Gonsalez with Cardiology. 2. Dr. Parminder Guadalupe with Gastroenterology. 3. Dr. Saurav Combs with Pulmonology. 4. Dr. Torres Woodward with General Surgery. PRIMARY PROCEDURES: Abdomen/pelvis CT: Infiltrate, atelectasis and/or scarring at posterior right lung base. Pneumonia could not be excluded, status post distal colectomy with left lower quadrant colostomy, midline lower anterior abdominal wall hernia which contains small bowel similar to prior. No evidence of obstruction, perirectal edema similar to prior, oblong ovarian cyst. Chest CT: Interstitial pulmonary edema. Bilateral pleural effusions. Body wall edema. Mild bibasilar dependent atelectasis. DISCHARGE DIAGNOSES: 1. Pneumonia status post 9 days of therapy, will be discharged home on Keflex and prednisone. 2. Septic shock secondary to Escherichia coli bacteremia, resolved. 3. Adrenal insufficiency, aware. 4. Hypoxemic respiratory failure, now resolved. 5. History of malfunction colostomy. She was followed by General Surgery. Her colostomy is now functioning. It is at skin level with opening and skin has become smaller over the years. There is no evidence of surrounding infection involving her ostomy. She is a high surgical risk because she is frail. She does have a midline ventral hernia that they are aware of. She has been taught by the wound nurse with care of her ostomy with her family, as well as the patient. HOSPITAL COURSE: Briefly, Ms. Blancas is a 72-year-old female who has undergone chemotherapy and radiation for anal carcinoma in 2000. She developed anal canal stenosis and bowel obstruction requiring an end-colostomy that was performed in 2007. She had been admitted back in March of this year for generalized weakness and she had an ESBL negative Escherichia coli bacteremia. At that time, she come to the ED complaining of feeling the same way with nausea, vomiting, confusion, and fevers. Blood cultures were obtained at that time. She was started on broad-spectrum antibiotics. She did in fact again have an Escherichia coli bacteremia as well as pneumonia. She was continued on treatment. She was followed by Gastroenterology for her anemia. There was no overt signs of GI bleeding. GI recommends a follow-up with General surgery about her colostomy site. Dr. Woodward did follow up and his recommendations feels that she is a high surgical risk because of her frailty. Her colostomy is at the skin level and the opening of the skin has become smaller over the years. Wound Care was consulted to do teaching for care of her ostomy with the patient and the family. It is now functioning properly. She is transitioned IV to p.o. antibiotics. Her hypoxemic respiratory failure has now resolved as well as her sepsis and she will be discharged back home with home health. VITAL SIGNS: Temperature is 98.6 degrees, heart rate 71, respirations 18, blood pressure 114/54, O2 is 99% on room air. REGULAR DISCHARGE MEDICATIONS: 1. Zofran 4 mg p.o. b.i.d. p.r.n. 2. Celexa 20 mg p.o. q.a.m. 3. Keflex 500 mg p.o. t.i.d. 30 caplets. 4. Prednisone 10 mg p.o. daily for 30 tablets. FOLLOW-UP AND DISCHARGE INSTRUCTIONS: Ms. Blancas is being discharged back home with home health. She is to take all medications as prescribed. She has been educated on her ostomy care. She was provided with written information and demonstration with verbalizing understanding. She is well-versed on her ostomy. She has had it for over 10 years. She was just mostly given products and education that were new to her. She can return to the ED or call 911 for any worsening of symptoms. Dictated by DAVID Porter for Ovidio Carson MD cc: MD Josh Gonzales MD
[2018-09-26 15:48] VITALS: BP 107/61
== END 2018-09-26 15:49 | disposition home health service (06) | DRG 871 ==
LOC: P.ED 20:19 → P.EDIPHOLD 09-17 01:21 → SUATTDRO 09-17 01:21 → P.ICU 09-17 03:14 → ICU 09-18 20:41 → 4N 09-23 11:12
PROVIDERS: ATTEND Internal Medicine
CPT/HCPCS: 36430; 36569; 71010; 71045; 71250; 74177; 80048; 80053; 81001; 82270; 82272; 82533; 82550; 82553; 82607; 82784; 83605; 83735; 83880; 84443; 84484; 85025; 85027; 85610; 85730; 86850; 86900; 86901; 86920; 87040; 87045; 87046; 87077; 87088; 87186; 87324; 93005; 93010; 93306; 96361; 96365; 96366; 96375; 99285; A9270; C9113; J1720; J1940; J2270; J2405; J2543; J3370; J3420; J3475; J3480; J7030; J7040; J7050; J7506; J7512; P9016; P9047; Q9967; S0164

== ENCOUNTER 2018-09-29 17:20 | Inpatient (IN) ==
[2018-09-29] MEDS ORDERED: TYLENOL PO ONE (17:38)
--- NOTE | 2018-09-29 18:05 | PROVIDER DOCUMENTATION ---
This chart was entered by Lexi Ramos Scribe, acting as scribe for Parminder Valdes MD. 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: Initiated none Cognitive Baseline: alert, oriented x3 Modifying Factors: improves with: nothing Associated Symptoms: reports: fever/chills, other (palpitations) Similar Symptoms Previously?: Yes Recently seen or treated by another doctor?: Yes <Parminder Valdes - Last Filed: 09/29/18 18:19> <Aj Venegas - Last Filed: 09/29/18 19:17> - General Chief Complaint: Return/Recheck Stated Complaint: REVISIT / RETURN Time Seen by Provider: 09/29/18 17:57 Allergies/Adverse Reactions: Patient Allergies Allergy/AdvReac Type Severity Reaction Status Date / Time codeine [Codeine] Allergy Intermediate passing out Verified 09/06/15 22:36 Home Medications: Home Medication List Medication Instructions Recorded Confirmed Last Taken Type Ondansetron Odt [Zofran Odt] 4 mg PO BID PRN 12/16/14 09/17/18 09/06/15 History Citalopram [Celexa] 20 mg PO QAM #30 tablet 12/24/14 09/17/18 09/06/15 Rx Cephalexin [Keflex] 500 mg PO TID #30 cap 09/26/18 Unknown Rx Prednisone 10 mg PO DAILY #30 tab 09/26/18 Unknown Rx - History of Present Illness-Fever Nature of Presenting Problem: 72 y/o female presents to ED with fever and fast/pounding palpitations onset this morning. Pt reports she was recently admitted to ICU for pneumonia, UTI, and sepsis. Pt was discharged home from hospital 3 days ago. Pt states she had a PICC line in the hospital. Pt is alert and oriented. (Parminder Valdes) Review of Systems - Adult - REVIEW OF SYSTEMS - ADULT Constitutional: reports: fever. denies: chills Eyes: reports: no symptoms reported Ears, Nose, Mouth & Throat: reports: no symptoms reported Cardiovascular: reports: palpitations. denies: chest pain Respiratory: denies: cough, shortness of breath Gastrointestinal: denies: abdominal pain, diarrhea, nausea, vomiting Genitourinary: reports: no symptoms reported Musculoskeletal: denies: back pain, joint pain Integumentary: reports: no symptoms reported Neurological: denies: dizziness/vertigo, seizure Psychiatric: reports: no symptoms reported Endocrine: reports: no symptoms reported Hematologic/Lymphatic: reports: no symptoms reported Allergic/Immunologic: reports: no symptoms reported All Other Systems: Reviewed and Negative <Parminder Valdes - Last Filed: 09/29/18 18:19> Past History - Adult - PAST MEDICAL HISTORY-ADULT Review of Records: reports: Old Records Reviewed, Nursing Assessment Review, Medications Reviewed Major Childhood Illnesses: reports: denies history Cardiovascular: reports: HTN Respiratory: reports: denies history Gastrointestinal: reports: cancer (hx of colon/rectal), obstruction Obstetrical/Gynecological: reports: denies history Genitourinary: reports: denies history Musculoskeletal: reports: chronic pain Neurological: reports: denies history 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) Other Conditions: reports: cataract/glaucoma Additional History: lymphedema bilateral legs, left worse than right - PRIOR SURGERIES/PROCEDURES Surgical/Procedure History: reports: cholecystectomy, tonsillectomy, bowel surgery (colon resection), other (colostomy; cataract removal; central line) - PRIOR HOSPITALIZATIONS Prior Hospitalizations: reports: for similar symptoms - IMMUNIZATION STATUS Childhood Immunizations: See Nurse Assessment Flu Vaccine: See Nurse Assessment - FAMILY HISTORY Family History: reviewed, not pertinent - SOCIAL HISTORY Smoking: non-smoker Substance Use: none/never Alcohol Use Frequency: never Living Situation: family <Parminder Valdes - Last Filed: 09/29/18 18:19> Physical Exam-General - PHYSICAL EXAM-ADULT Initial Vital Signs Reviewed: Yes - CONSTITUTIONAL General Appearance: appears well, alert, no apparent distress - EYES Eyes: PERRL/EOMI, pink conjunctivae - HEAD, EARS, NOSE, MOUTH & THROAT HENMT: normocephalic/atraumatic, moist mucous membranes, normal ENT inspection - NECK Neck: non-tender, full range of motion - RESPIRATORY Respiratory: chest non-tender, lungs clear, normal breath sounds - CARDIOVASCULAR Cardiovascular: normal peripheral pulses, regular rate, rhythm - GASTROINTESTINAL (ABDOMEN) Abdominal Exam: normal bowel sounds, non tender, soft - MUSCULOSKELETAL Back Exam: normal inspection, no CVA tenderness, no vertebral tenderness Extremity: normal range of motion, non-tender, other (lymphedema and stasis dermatitis of bilateral lower extremities) - SKIN Integumentary: normal color, warm/dry, other (lymphedema and stasis dermatitis of bilateral lower extremities) - NEUROLOGIC Neurologic: grossly normal - PSYCHIATRIC Psych/Mental Status: normal mood/affect, normal thought content, normal thought process, oriented x 3 <Parminder Valdes - Last Filed: 09/29/18 18:19> Progress - PLAN OF CARE/RESULTS Result Diagrams: 09/29/18 18:00 - XRAY 1 XRAY Study: Chest Impression: See EMR Report ([facility] - [address], [address], [place] [address] [facility] - [address] [place] [address] Department of Imaging Patient: RUFUS PANDYA Date: 09/29/18#: [id number] : 4ADM Status: PRE ERAcct#: [id number] Age/Sex: 72/FRoom/Bed: Loc: P.ED Ordering Physician: Parminder Valdes MD Family Physician: Josh Kaplan MD Reason for Procedure: hx pneumonia sepsis protocol ___ Signed CHEST-1 VIEW - 09/29/2018 INDICATION: hx pneumonia sepsis protocol COMPARISON: 09/23/2018 FINDINGS: There are some faint reticulonodular infiltrates in both lung bases mainly in the right lung base. There is mild cardiomegaly. Pulmonary vascularity is normal. No large pleural effusion. IMPRESSION: Cardiomegaly. Bibasilar reticulonodular infiltrates suggesting atypical pneumonia. Electronically signed by Reggie Steven 09/29/2018 6:14 PM 09/29/181813 Interpreting Physician: Reggie Steven MD Dictated Date/Time: 09/29/181812 cc: Parminder Valdes MD; Josh Kaplan MD) <Parminder Valdes - Last Filed: 09/29/18 18:19> - PLAN OF CARE/RESULTS Result Diagrams: 09/29/18 18:00 09/29/18 18:00 - CONSULTS/PCP/HOSPITALIST Notification #1 *Consult/PCP/Hospitalist*: Dr. Kaplan, hospitalist Time Discussed: 19:05 Consult Disposition: Admit <Aj Venegas - Last Filed: 09/29/18 19:17> - PLAN OF CARE/RESULTS Progress/Plan/Lab Results: Vital Signs - 8 hr 09/29/18 17:24 Temperature 101.1 F H Pulse Rate 92 H Respiratory Rate 20 Blood Pressure 124/67 O2 Sat by Pulse Oximetry 95 Laboratory Results - last 24 hr 09/29/18 09/29/18 09/29/18 18:00 18:00 18:00 WBC 29.54 H RBC 3.50 L Hgb 10.7 L Hct 32.4 L MCV 92.6 MCH 30.6 MCHC 33.0 RDW Std Deviation 18.2 H Plt Count 365 MPV 9.3 Immature Gran % (Auto) 0.5 Neut % (Auto) 93.6 H Lymph % (Auto) 2.0 L [place] % (Auto) 3.7 Eos % (Auto) 0.1 Baso % (Auto) 0.1 Immature Gran # (Auto) 0.15 H Neut # (Auto) 27.63 H Lymph # (Auto) 0.59 L [place] # (Auto) 1.10 H Eos # (Auto) 0.03 Baso # (Auto) 0.04 PT INR PTT (Actin FS) Sodium 137 Potassium 4.4 Chloride 99 Carbon Dioxide 26 Anion Gap 12 BUN 19 Creatinine 0.7 Estimated GFR/1.73 m2 > 60 BUN/Creatinine Ratio 27 Glucose 109 H Calculated Osmolality 277 Calcium 9.0 Total Bilirubin 0.50 AST 29 ALT 24 Alkaline Phosphatase 68 Creatine Kinase 49 Troponin T Total Protein 7.1 Albumin 3.6 Globulin 4.0 Albumin/Globulin Ratio 1.0 Plasma Lactate 2.0 09/29/18 09/29/18 18:00 18:00 WBC RBC Hgb Hct MCV MCH MCHC RDW Std Deviation Plt Count MPV Immature Gran % (Auto) Neut % (Auto) Lymph % (Auto) [place] % (Auto) Eos % (Auto) Baso % (Auto) Immature Gran # (Auto) Neut # (Auto) Lymph # (Auto) [place] # (Auto) Eos # (Auto) Baso # (Auto) PT 13.4 INR 0.97 PTT (Actin FS) 29.2 Sodium Potassium Chloride Carbon Dioxide Anion Gap BUN Creatinine Estimated GFR/1.73 m2 BUN/Creatinine Ratio Glucose Calculated Osmolality Calcium Total Bilirubin AST ALT Alkaline Phosphatase Creatine Kinase Troponin T < 0.010 Total Protein Albumin Globulin Albumin/Globulin Ratio Plasma Lactate Orders Category Date Time Status Admit - [facility] Routine AdmDCTranf 09/29/18 19:10 Active Activity - Strict Bedrest ORDERED Care 09/29/18 19:10 Active Cardiac Monitoring DIRECTED Care 09/29/18 17:28 Active Diaz Cath Insertion ORDERED Care 09/29/18 19:15 Active IV Insertion ORDERED Care 09/29/18 17:28 Active Intake and Output-Strict ORDERED Care 09/29/18 19:15 Active Notify MD of + Sepsis Screen NOW Care 09/29/18 17:28 Active Notify MD/PA/DAVID for exam NOW Care 09/29/18 19:15 Active Notify Physician As Ordered Care 09/29/18 17:28 Active Repeat Vital Signs .Heart Rate Care 09/29/18 19:15 Active Repeat Vital Signs .Oxygen Saturation Care 09/29/18 19:15 Active Repeat Vital Signs .Respiratory Rate Care 09/29/18 19:15 Active Repeat Vital Signs .Temp Care 09/29/18 19:15 Active Resuscitation Status Routine Care 09/29/18 19:10 Ordered Vital Signs Order Q 4-HR ASSESS Care 09/29/18 19:10 Active Z-Document. for Tele Applied ORDERED Care 09/29/18 19:12 Active NPO Diet 09/29/18 19:12 Active CHEST-1 VIEW [RAD] Stat Exams 09/29/18 17:28 Completed BLOOD CULTURE [BLDCUL] Stat Lab 09/29/18 17:57 Ordered CBC WITH DIFF [HEME] Stat Lab 09/29/18 18:00 Results CK PROFILE [SP CHEM] Stat Lab 09/29/18 18:00 Completed COMPREHENSIVE METABOLIC PANEL [CHEM] Stat Lab 09/29/18 18:00 Completed LACTATE, PLASMA [CHEM] Lab 09/29/18 20:30 Uncollected LACTATE, PLASMA [CHEM] Lab 09/29/18 23:30 Uncollected LACTATE, PLASMA [CHEM] Stat Lab 09/29/18 18:00 Completed LACTATE, PLASMA [CHEM] Timed Lab 09/29/18 19:15 Uncollected PROTIME WITH INR [COAG] Stat Lab 09/29/18 18:00 Completed PTT [COAG] Stat Lab 09/29/18 18:00 Completed TROPONIN T Stat Lab 09/29/18 18:[address] W/POSS RFLX CULT [URINALYSIS] Stat Lab 09/29/18 17:[address] W/POSS RFLX CULT [URINALYSIS] Stat Lab 09/29/18 19:07 Uncollected 0.9% Sodium Chloride Inj [Ns] 1,000 ml Med 09/29/18 19:10 Active IV 125 mls/hr 0.9% Sodium Chloride Inj [Ns] 1,000 ml Med 09/29/18 19:14 Ordered IV As Directed Acetaminophen [Tylenol] Med 09/29/18 17:38 Discontinued 1,000 mg PO NOW ONE Acetaminophen [Tylenol] Med 09/29/18 19:13 Active 650 mg PO Q6H PRN PRN Pharmacy Order [Vancomycin IV Per Pharmacy] Med 09/29/18 19:15 Ordered 1 each MISC DIRECTED Piperacillin/Tazobactam [Zosyn] 3.375 gm Med 09/29/18 19:04 Active 0.9% Sodium Chloride Inj [Ns] 50 ml IV NOW Piperacillin/Tazobactam [Zosyn] 3.375 gm Med 09/29/18 19:15 Ordered 0.9% Sodium Chloride Inj [Ns] 50 ml IV Q6H Vancomycin 1 gm/Ns Med 09/29/18 19:04 Active 1 gm in 250 ml IV NOW Oxygen Device Stat Oth 09/29/18 17:28 Active Oxygen Device Stat Oth 09/29/18 19:10 Active Telemetry [OM.EQ] Routine Oth 09/29/18 19:10 Active Transfer/Admit Order [TRANSFER] Routine Transfer 09/29/18 19:14 Ordered Departure <Parminder Valdes Filed: 09/29/18 18:19> - Departure Date of Disposition Decision: 09/29/18 Time of Disposition Decision: 19:17 Certified Medical Emergency: Emergent - Critical Care Note This patient required my direct & personal management of CC.: Yes <Aj Venegas - Last Filed: 09/29/18 19:17> - Departure DIAGNOSIS: Pneumonia Qualifiers: Pneumonia type: due to unspecified organism Laterality: bilateral Lung location: lower lobe of lung Qualified Code(s): J18.1 - Lobar pneumonia, unspecified organism Disposition: ADMITTED INPATIENT 09 Condition: Stable Referrals and Follow-Ups: Josh Kaplan MD [Primary Care Provider] - Attestation - Physician/ [place] Attestation Patient care was provided by Advanced Practice Provider:: No The physician spent face to face time with patient:: Yes Advanced Practice Provider documentation review:: Supervising physician onsite and consulted in the evaluation and care of this patient. The physician did have a face to face encounter with the patient. <Parminder Valdes - Last Filed: 09/29/18 18:19> - Physician/ [place] Attestation Patient care was provided by Advanced Practice Provider:: No The physician spent face to face time with patient:: Yes Advanced Practice Provider documentation review:: Supervising physician onsite and consulted in the evaluation and care of this patient. The physician did have a face to face encounter with the patient. <Aj Venegas - Last Filed: 09/29/18 19:17> This chart was documented by the indicated scribe, (Lexi Ramos Scribe) and accurately reflects the services I performed and decisions made by me, Parminder Valdes MD, as attested by the provider's signature.
--- NOTE | 2018-09-29 18:16 | Diag Imaging Result Doc PS360 ---
CHEST-1 VIEW - 09/29/2018 INDICATION: hx pneumonia sepsis protocol COMPARISON: 09/23/2018 FINDINGS: There are some faint reticulonodular infiltrates in both lung bases mainly in the right lung base. There is mild cardiomegaly. Pulmonary vascularity is normal. No large pleural effusion. IMPRESSION: Cardiomegaly. Bibasilar reticulonodular infiltrates suggesting atypical pneumonia. Electronically signed by Reggie Steven 09/29/2018 6:14 PM
[2018-09-29 18:24] LABS: BASO# 0.04 X1000 (0.0-0.2); BASO% 0.1 % (0.0-0.8); EOS# 0.03 X1000 (0.0-0.7); EOS% 0.1 % (0.0-10.0); HEMATOCRIT 32.4 % (37.0-47.0); HEMOGLOBIN 10.7 g/dL (12.0-16.0); IMM GRAN# 0.15 X1000 (0.0-0.04); IMM GRAN% 0.5 % (0.0-0.5); LYMPH# 0.59 X1000 (1.2-3.4); MCH 30.6 PG (27-31); MCV 92.6 FL (81-99); MONO% 3.7 % (1.7-9.3); MPV 9.3 FL (7.4-10.4); NEUT# 27.63 X1000 (1.4-6.5); NEUT% 93.6 % (42.2-75.2); PLT 365 X1000 (130-400); RDW 18.2 % (11.5-14.5); WBC 29.54 X1000 (4.8-10.8)
[2018-09-29 18:39] LABS: INR 0.97; PROTIME 13.4 Seconds (11.0-16.0); PTT 29.2 Seconds (22.3-41.8)
[2018-09-29 18:57] LABS: AGAP 12; ALBUMIN 3.6 g/dL (3.5-5.0); ALKALINE PHOSPHATASE 68 U/L (32-104); BUN 19 mg/dL (8-22); CHLORIDE 99 mmol/L (98-107); CK PROFILE 49 U/L (24-173); COSMO 277; CREATININE 0.7 mg/dL (0.5-0.9); ESTIMATED GFR > 60; GLUCOSE 109 mg/dL (70-104); GOT 29 U/L (10-30); GPT 24 U/L (10-36); POTASSIUM 4.4 mmol/L (3.5-5.1); SODIUM 137 mmol/L (136-145); TCO2 26 mmol/L (25-35); TOTAL PROTEIN 7.1 g/dL (6.3-8.3)
[2018-09-29] MEDS ORDERED: ZOSYN 3.375 GM in NS 50 ML IV ONE (19:04)
[2018-09-29] MEDS ORDERED: VANCOMYCIN 1 GM/NS 1 GM/250 ML IVPB IV ONE (19:04)
[2018-09-29] MEDS ORDERED: TYLENOL PO PRN (19:13)
[2018-09-29] MEDS ORDERED: NS 1,000 ML IV ONE (19:14)
[2018-09-29] MEDS: ZOSYN 3.375 GM in NS 50 ML IV SCH (19:15)
[2018-09-29] MEDS ORDERED: VANCOMYCIN IV PER PHARMACY MISC SCH (19:15)
[2018-09-29 19:23] LABS: BANDS 2 % (0-1); LYMPHS 2 % (21-51); MONO 3 % (1-9); SEGS 93 % (42-75)
[2018-09-29 19:24] LABS: HYPOCHROM 1+; LARGE PLATELETS OCCASIONAL
[2018-09-29] MEDS ORDERED: NS 1,000 ML ONE (19:43)
[2018-09-29 20:16] LABS: BILIRUBIN URINE NEGATIVE (NEGATIVE); BLOOD URINE 1+ (NEGATIVE); CLARITY CLEAR (CLEAR); COLOR YELLOW; GLUCOSE URINE NEGATIVE (NEGATIVE); KETONE URINE NEGATIVE (NEGATIVE); LEUKOCYTES URINE TRACE (NEGATIVE); NITRITE URINE NEGATIVE (NEGATIVE); PROTEIN URINE TRACE mg/dL (NEGATIVE); SP GRAVITY URINE 1.005; UROBILINOGEN URINE NORMAL
[2018-09-29 20:20] LABS: URINE SOURCE CATH
[2018-09-29 20:21] LABS: URINE BACTERIA NEGATIVE /HFP; URINE CAST NONE SEEN /LPF; URINE CRYSTAL NONE SEEN /HPF; URINE EPITHELIAL CELLS >10 /HPF (<10); URINE RBC <10 /HPF (<10); URINE WBC <10 /HPF (<10); URINE YEAST NONE SEEN /HPF
[2018-09-29] MEDS ORDERED: VANCOMYCIN 500 MG/NS 500 MG/100 ML IVPB IV ONE (21:00)
[2018-09-29] MEDS ORDERED: VANCOMYCIN 1 GM/NS 1 GM/250 ML IVPB ONE (22:02)
[2018-09-29] MEDS: NS 1,000 ML IV ONE (22:11)
[2018-09-30] MEDS: ZOSYN 3.375 GM in NS 50 ML IV SCH ×4 (01:40→20:55)
[2018-09-30] MEDS ORDERED: LEVOPHED 8 MG in D5 1/2 NS 250 ML IV SCH (02:45)
[2018-09-30] MEDS ORDERED: D5 1/2 NS 250 ML ONE (02:51)
[2018-09-30] MEDS ORDERED: LEVOPHED ONE (02:51)
[2018-09-30] MEDS ORDERED: NS 1,000 ML ONE ×2 (05:05→09:35)
[2018-09-30] MEDS ORDERED: TYLENOL PO PRN (09:17)
[2018-09-30] MEDS ORDERED: ZOFRAN IV PRN (09:17)
[2018-09-30] MEDS ORDERED: VANCOMYCIN IV PER PHARMACY MISC SCH (09:30)
[2018-09-30] MEDS: NS 1,000 ML IV ONE (09:35)
[2018-09-30] MEDS ORDERED: DUONEB (A & A) INH PRN (12:38)
[2018-09-30] MEDS: DOXYCYCLINE 100 MG in NS 250 ML IV SCH ×2 (12:50→23:28)
--- NOTE | 2018-09-30 13:06 | HISTORY AND PHYSICAL ---
CHIEF COMPLAINT: "My heart is pounding." HISTORY OF PRESENT ILLNESS: This is a 72-year-old female with a history of ESBL bacteremia and pneumonia, hospitalized for the same from 09/17/2018 through 09/26/2018. She comes in today complaining of palpitations, subjective fever, and chills. She was febrile on arrival with a temperature of 101.1 degrees, and chest x-ray revealed bibasilar reticular nodular infiltrates suggesting atypical pneumonia, for which she received vancomycin and Zosyn in the emergency room, and is being admitted for further evaluation and treatment. PAST MEDICAL HISTORY: 1. Chronic lower extremity edema. 2. Colon cancer. 3. Recurrent colonic obstruction. 4. Chronic pain. 5. Chronic depression. 6. Recent Escherichia coli bacteremia. PAST SURGICAL HISTORY: 1. Colon resection with colostomy. 2. Cholecystectomy. 3. Tonsillectomy. SOCIAL HISTORY: She denies alcohol, tobacco, or illicit drug use. ALLERGIES: Codeine. MEDICATIONS: A list will be obtained by the nursing staff, and once verified, will review and restart as appropriate. REVIEW OF SYSTEMS: Discussed with the patient, with pertinent positives stated in the HPI. She denied any syncope or dizziness, any chest pain or palpitations, any cough, shortness of breath, PND, orthopnea, abdominal pain, nausea, vomiting, diarrhea, constipation, any hematuria, dysuria, frequency, urgency. PHYSICAL EXAMINATION: GENERAL: This is a 72-year-old female who is sitting up in the bed, eating, in no distress. VITAL SIGNS: Blood pressure is 138/50, with a heart rate of 58, respirations are 18, temperature is 98 degrees oral, with room air saturations of 98%. HEENT: Head is normocephalic, atraumatic. Mucous membranes are moist. NECK: Supple with trachea midline. CARDIOVASCULAR: Regular rate and rhythm. S1 and S2 appreciated. No murmurs, rubs, gallops. She does have bilateral edema. She has chronic lymphedema. PULMONARY: She is noted to have some expiratory wheezes. Chest rises and falls symmetrically with respiration. GASTROINTESTINAL: Abdomen is soft, nontender, nondistended with bowel sounds in all 4 quadrants. NEUROLOGIC: She is alert and oriented x3. SKIN: Warm and dry. IMAGING AND LABORATORY DATA: WBC is 29.5, with hemoglobin 10.7, hematocrit 32.4, platelets 365,000. Sodium 137, potassium 4.4, BUN 19, creatinine 0.7, glucose 109. Urinalysis is essentially negative. Urine culture and blood cultures are pending. Chest x-ray revealed cardiomegaly with bibasilar reticulonodular infiltrates suggesting atypical pneumonia. ASSESSMENT: 1. Bilateral pneumonia. 2. Leukocytosis. 3. Fever. 4. Chronic lower extremity edema/lymphedema. 5. History of colon cancer, status post colostomy. PLAN: The patient will be admitted to ICU at [place]. She will be placed on telemetry. Will give supplemental oxygen as needed. Start DuoNeb every 4 hours when awake, with every 2 hours p.r.n., with incentive spirometer. Will attempt to get a sputum specimen. Will identify her home medications, and continue. Will continue with the Diaz catheter for strict I and O. Will add doxycycline as she does have atypical pneumonia. Plan was discussed with Dr. Kaplan. Further treatments pending hospital course. Dictated by DAVID Ponce for Josh Kaplan MD cc: DAVID Ponce MD
[2018-09-30] MEDS: DUONEB (A & A) INH SCH ×3 (15:24→22:57)
--- NOTE | 2018-09-30 16:29 | HISTORY AND PHYSICAL ---
ADDENDUM: Patient was seen and examined by myself. Full note dictated and discussed with nurse practitioner. Patient presented to the hospital with fever. She was just recently in the hospital with sepsis, I believe from a urinary source. We are going to place her on vancomycin and Zosyn, and we will add doxycycline as she has most likely an atypical pneumonia. Her blood pressures have been low. They are improving. We will place her in the ICU for sepsis with a white count at 29, fever at 101, and pneumonia. Further orders as needed. cc: Josh Kaplan MD
[2018-10-01] MEDS: ZOSYN 3.375 GM in NS 50 ML IV SCH ×4 (04:30→23:36)
[2018-10-01 06:46] LABS: BASO# 0.04 X1000 (0.0-0.2); BASO% 0.5 % (0.0-0.8); EOS# 0.06 X1000 (0.0-0.7); EOS% 0.8 % (0.0-10.0); HEMATOCRIT 25.1 % (37.0-47.0); HEMOGLOBIN 7.9 g/dL (12.0-16.0); IMM GRAN# 0.01 X1000 (0.0-0.04); IMM GRAN% 0.1 % (0.0-0.5); LYMPH# 0.83 X1000 (1.2-3.4); LYMPH% 10.6 % (20.5-51.1); MCH 29.6 PG (27-31); MCHC 31.5 g/dL (33-37); MONO# 0.65 X1000 (0.11-0.59); MONO% 8.3 % (1.7-9.3); MPV 9.5 FL (7.4-10.4); NEUT# 6.25 X1000 (1.4-6.5); NEUT% 79.7 % (42.2-75.2); PLT 275 X1000 (130-400); RBC 2.67 XMIL (4.2-5.4); RDW 18.3 % (11.5-14.5); WBC 7.84 X1000 (4.8-10.8)
[2018-10-01 07:05] LABS: AGAP 10; ALBUMIN 2.7 g/dL (3.5-5.0); ALKALINE PHOSPHATASE 65 U/L (32-104); BUN 11 mg/dL (8-22); CALCIUM 8.3 mg/dL (8.8-10.2); CHLORIDE 107 mmol/L (98-107); COSMO 278; CREATININE 0.7 mg/dL (0.5-0.9); ESTIMATED GFR > 60; GLUCOSE 82 mg/dL (70-104); GOT 18 U/L (10-30); GPT 16 U/L (10-36); POTASSIUM 3.3 mmol/L (3.5-5.1); SODIUM 140 mmol/L (136-145); TCO2 23 mmol/L (25-35); TOTAL PROTEIN 5.4 g/dL (6.3-8.3)
[2018-10-01] MEDS ORDERED: KLOR-CON PO ONE (07:11)
[2018-10-01] MEDS: DUONEB (A & A) INH SCH ×5 (08:04→22:41)
[2018-10-01] MEDS ORDERED: VANCOMYCIN 1 GM/NS 1 GM/250 ML IVPB IV SCH (09:00)
[2018-10-01] MEDS ORDERED: VANCOMYCIN 1,200 MG in NS 250 ML IV SCH (09:00)
[2018-10-01] MEDS: DOXYCYCLINE 100 MG in NS 250 ML IV SCH ×2 (12:35→23:35)
--- NOTE | 2018-10-01 21:19 | PROGRESS NOTE ---
DATE: 10/01/2018 SUBJECTIVE: Patient notes that she is starting to feel a lot better. PHYSICAL: Vital signs: Temp 98 degrees, pulse 58, respiratory 18, BP 78/38 while she was on Levophed. Currently is improved to 120/61 off Levophed. HEENT: Normocephalic. Neck: Is supple. CV: Regular rate. No murmurs. Chest: Clear nonlabored. Extremities: Moves all extremities. Neuro: No changes. ASSESSMENT: 1. Gram-negative nakita bacteremia. 2. Sepsis. 3. Bilateral pneumonia. 4. Fever. 5. Chronic lower extremity edema and lymphedema. PLAN: We will continue patient in the hospital. Continue Zosyn and doxycycline as she does have pneumonia. We will replace her potassium. Follow her blood pressures. Further orders as needed. cc: Josh Kaplan MD
[2018-10-02] MEDS: ZOSYN 3.375 GM in NS 50 ML IV SCH (05:15)
[2018-10-02 07:41] LABS: BASO# 0.04 X1000 (0.0-0.2); BASO% 0.6 % (0.0-0.8); EOS% 1.5 % (0.0-10.0); HEMATOCRIT 26.6 % (37.0-47.0); HEMOGLOBIN 8.3 g/dL (12.0-16.0); IMM GRAN# 0.01 X1000 (0.0-0.04); IMM GRAN% 0.1 % (0.0-0.5); LYMPH% 10.5 % (20.5-51.1); MCHC 31.2 g/dL (33-37); MONO# 0.66 X1000 (0.11-0.59); MONO% 9.9 % (1.7-9.3); MPV 9.3 FL (7.4-10.4); NEUT# 5.18 X1000 (1.4-6.5); NEUT% 77.4 % (42.2-75.2); PLT 299 X1000 (130-400); RBC 2.86 XMIL (4.2-5.4); RDW 18.4 % (11.5-14.5); WBC 6.69 X1000 (4.8-10.8)
[2018-10-02 07:49] LABS: AGAP 12; ALKALINE PHOSPHATASE 66 U/L (32-104); BUN 7 mg/dL (8-22); CALCIUM 8.6 mg/dL (8.8-10.2); CHLORIDE 107 mmol/L (98-107); COSMO 280; CREATININE 0.7 mg/dL (0.5-0.9); ESTIMATED GFR > 60; GLUCOSE 83 mg/dL (70-104); GOT 17 U/L (10-30); GPT 15 U/L (10-36); POTASSIUM 3.9 mmol/L (3.5-5.1); SODIUM 142 mmol/L (136-145); TCO2 24 mmol/L (25-35); TOTAL PROTEIN 5.8 g/dL (6.3-8.3)
[2018-10-02] MEDS: DUONEB (A & A) INH SCH ×5 (08:19→23:01)
[2018-10-02] MEDS ORDERED: ZOFRAN ODT PO PRN (08:38)
[2018-10-02] MEDS: PREDNISONE PO SCH (09:31)
[2018-10-02] MEDS: CELEXA PO SCH (09:31)
[2018-10-02] MEDS: ROCEPHIN 2 GM in NS 50 ML IV SCH (09:34)
[2018-10-02] MEDS ORDERED: CARDIZEM IV ONE (21:00)
--- NOTE | 2018-10-02 21:28 | EKG Report ---
Test Performed on : 10/02/2018 8:55:47 PM Test Reason : Tachycardia Blood Pressure : / mmHG Vent. Rate : 147 BPM Atrial Rate : 294 BPM P-R Int : 000 ms QRS Dur : 068 ms QT Int : 350 ms P-R-T Axes : 000 -51 220 degrees QTc Int : 547 ms Atrial flutter. with 2:1 AV conduction. Left anterior fascicular block Anterolateral infarct , age undetermined Abnormal ECG When compared with ECG of 20-SEP-2018 21:05, Significant changes have occurred Confirmed by Parminder Valdes MD ([id number]) on 10/03/2018 9:36:01 PM
[2018-10-03 07:01] LABS: AGAP 10; BUN 10 mg/dL (8-22); CHLORIDE 105 mmol/L (98-107); COSMO 275; CREATININE 0.5 mg/dL (0.5-0.9); ESTIMATED GFR > 60; GLUCOSE 76 mg/dL (70-104); POTASSIUM 3.7 mmol/L (3.5-5.1); SODIUM 139 mmol/L (136-145); TCO2 24 mmol/L (25-35)
[2018-10-03 07:12] LABS: BASO# 0.04 X1000 (0.0-0.2); BASO% 0.6 % (0.0-0.8); EOS# 0.11 X1000 (0.0-0.7); EOS% 1.8 % (0.0-10.0); HEMATOCRIT 25.4 % (37.0-47.0); IMM GRAN# 0.01 X1000 (0.0-0.04); IMM GRAN% 0.2 % (0.0-0.5); LYMPH# 1.12 X1000 (1.2-3.4); LYMPH% 17.9 % (20.5-51.1); MCH 29.5 PG (27-31); MCHC 31.5 g/dL (33-37); MCV 93.7 FL (81-99); MONO# 0.71 X1000 (0.11-0.59); MONO% 11.4 % (1.7-9.3); MPV 9.7 FL (7.4-10.4); NEUT# 4.25 X1000 (1.4-6.5); NEUT% 68.1 % (42.2-75.2); PLT 287 X1000 (130-400); RBC 2.71 XMIL (4.2-5.4); RDW 18.4 % (11.5-14.5); WBC 6.24 X1000 (4.8-10.8)
[2018-10-03] MEDS ORDERED: XOPENEX NEB INH PRN (07:48)
[2018-10-03] MEDS: DUONEB (A & A) INH SCH (08:11)
[2018-10-03] MEDS: PREDNISONE PO SCH (08:33)
[2018-10-03] MEDS: CELEXA PO SCH (08:33)
[2018-10-03] MEDS: ROCEPHIN 2 GM in NS 50 ML IV SCH ×2 (08:34→10:32)
--- NOTE | 2018-10-03 18:04 | PROGRESS NOTE ---
DATE: 10/02/2018 SUBJECTIVE: Patient notes that she is feeling a lot better. Denies any fevers or chills currently. Denies any GI or issues currently. OBJECTIVE/PHYSICAL EXAMINATION: Vital Signs: Reviewed. Temperature 98.2, pulse 66, respiratory 18, BP 130/83. General: Patient is awake, alert, currently in no distress. Pleasant to talk with. HEENT: Normocephalic. Neck: Supple. Cardiovascular: Regular rate. No murmurs. Chest: Clear, nonlabored. Abdomen: Soft, nondistended. Extremities: Moves all extremities. ASSESSMENT: 1. Sepsis, resolved. 2. Escherichia coli bacteremia, esmhxpta-ywoealil-yvau-lactamase negative, currently on Rocephin. 3. Leukocytosis resolved. 4. Anemia of chronic disease. 5. Fever. 6. Chronic lower extremity edema with lymphedema. 7. History of colon cancer status post colostomy. PLAN: We will transition her to the floor, as she is stable. We will not place a PICC line yet. However, we will recheck a blood culture. If that is negative, then we will order a PICC line. She does not have hardware, so she will need to be on 3 weeks of antibiotics. cc: Josh Kaplan MD
--- NOTE | 2018-10-03 19:12 | PROGRESS NOTE ---
DATE: 10/03/2018 SUBJECTIVE: Patient notes that she feels fine. She did have an episode last night of SVT, but that was quickly resolved with 1 dose of Cardizem. Currently, she has been in sinus rhythm since. PHYSICAL EXAMINATION: Vital Signs: Reviewed. Temp 97.8 degrees, pulse 65, respiratory 20, BP 128/59. General: Patient is very pleasant. She is in no respiratory distress. HEENT: Normocephalic. Neck: Supple. Cardiovascular: Regular rate. No murmurs. Chest: Clear nonlabored. Abdomen: Soft, nondistended. Extremities: Moves all extremities. Neurologic: No focal changes. Skin: Warm and dry. No rashes. ASSESSMENT: 1. Extended spectrum beta-lactamases negative Escherichia coli bacteremia, currently on Rocephin. We will recheck her blood culture. If it is negative, we will put in a PICC line as she will need antibiotics for 3 weeks. 2. Sepsis, resolved. 3. Hypotension resolved. PLAN: We will continue in the hospital until cultures are negative. cc: Josh Kaplan MD
[2018-10-04 07:58] LABS: AGAP 14; ALKALINE PHOSPHATASE 84 U/L (32-104); BUN 11 mg/dL (8-22); CALCIUM 8.9 mg/dL (8.8-10.2); CHLORIDE 100 mmol/L (98-107); COSMO 274; CREATININE 0.6 mg/dL (0.5-0.9); ESTIMATED GFR > 60; GLUCOSE 75 mg/dL (70-104); GOT 28 U/L (10-30); GPT 23 U/L (10-36); MAGNESIUM 1.4 mg/dL (1.5-2.7); POTASSIUM 3.7 mmol/L (3.5-5.1); SODIUM 138 mmol/L (136-145); TCO2 24 mmol/L (25-35); TOTAL PROTEIN 6.4 g/dL (6.3-8.3)
[2018-10-04 08:20] LABS: HEMATOCRIT 30.3 % (37.0-47.0); HEMOGLOBIN 9.6 g/dL (12.0-16.0); MCH 29.4 PG (27-31); MCHC 31.7 g/dL (33-37); MCV 92.7 FL (81-99); MPV 9.3 FL (7.4-10.4); RBC 3.27 XMIL (4.2-5.4); RDW 18.5 % (11.5-14.5); WBC 9.98 X1000 (4.8-10.8)
[2018-10-04] MEDS ORDERED: MAGNESIUM SULFATE 2 GM/S.W.I. 2 GM/50 ML IVPB IV ONE (08:25)
[2018-10-04] MEDS: PREDNISONE PO SCH (09:05)
[2018-10-04] MEDS: CELEXA PO SCH (09:05)
[2018-10-04] MEDS: ROCEPHIN 2 GM in NS 50 ML IV SCH (11:39)
[2018-10-05] MEDS: PREDNISONE PO SCH (08:31)
[2018-10-05] MEDS: CELEXA PO SCH (08:31)
[2018-10-05] MEDS: ROCEPHIN 2 GM in NS 50 ML IV SCH (10:14)
--- NOTE | 2018-10-05 13:01 | PROGRESS NOTE ---
DATE: 10/05/2018 SUBJECTIVE: The patient is has no complaints, notes her nausea has improved. Abdominal pain is improved. Denies any fevers or chills. PHYSICAL EXAMINATION: Vital signs reviewed. She is awake, alert and oriented. She is afebrile. Blood pressure is stable 120 systolic, heart rate 60. HEENT: Normocephalic. Neck: Supple. CV: Regular rate. No murmurs. Chest: Clear and nonlabored. Abdomen: Soft, nondistended. Extremities: Moves all extremities. ASSESSMENT: Extended-spectrum beta-lactamase negative Escherichia coli pneumonia and bacteremia. PLAN: Will continue patient in the hospital, continue physical therapy. She will need Rocephin for 3 weeks. Will consider PICC line if and when her test is negative. cc: Josh Kaplan MD
--- NOTE | 2018-10-05 15:23 | PROGRESS NOTE ---
DATE: 10/04/2018 SUBJECTIVE: Patient is nauseated and does not feel well. Denies any fevers. PHYSICAL EXAMINATION: Vital Signs: Reviewed. She is awake and alert. She is in no distress. Blood pressure is stable. She is afebrile. HEENT: Normocephalic. Neck: Supple. Cardiovascular: Regular rate. Lungs: Chest clear and nonlabored. Abdomen: Soft. Mild distention. Extremities: Moves all extremities. ASSESSMENT: 1. Nausea of undetermined origin. 2. Escherichia coli pneumonia, ESBL negative, extended spectrum beta-lactamases negative. 3. Escherichia coli bacteremia. 4. Septicemia resolved. 5. Hypotension resolved. PLAN: We will continue the patient in the hospital. We have redrawn a blood culture. Once it is negative, she will need to have a PICC line placed. cc: Josh Kaplan MD MTDD
[2018-10-06] MEDS: PREDNISONE PO SCH (09:31)
[2018-10-06] MEDS: CELEXA PO SCH (09:31)
[2018-10-06] MEDS: ROCEPHIN 2 GM in NS 50 ML IV SCH (09:31)
--- NOTE | 2018-10-06 13:03 | PROGRESS NOTE ---
DATE: 10/06/2018 SUBJECTIVE: Patient notes that she feels fine. Her nausea has improved. She is attempting to ambulate. PHYSICAL EXAMINATION: Vital Signs: Reviewed. She is afebrile. Blood pressures are stable. Heart rate is 70s to 80s, respiratory 20. General: Patient is an elderly female who currently is in no respiratory distress. She is awake, alert, oriented, pleasant to talk with, lying flatly in bed. HEENT: Normocephalic. Neck: Supple. Cardiovascular: Regular rate. No murmurs. Chest: Clear no crackles. No wheezing. Abdomen: Soft, nondistended. Positive bowel sounds. Extremities: Moves all extremities. Neurologic: No focal changes. Skin: Warm and dry. No rashes. ASSESSMENT: 1. Septicemia, resolved. 2. Escherichia coli extended-spectrum fvpg-lekhytvud-cxqlftpl bacteremia. 3. Extended-spectrum eqnh-vivnfrpvg-tfletfce Escherichia coli pneumonia. 4. Fever, resolved. 5. Hypotension, resolved. 6. Nausea and vomiting, appears resolved. PLAN: We will continue patient in the hospital over the weekend until she can get a PICC line on Monday and we can arrange home IV antibiotics. cc: Josh Kaplan MD
[2018-10-07] MEDS: PREDNISONE PO SCH (08:55)
[2018-10-07] MEDS: CELEXA PO SCH (08:55)
[2018-10-07] MEDS: ROCEPHIN 2 GM in NS 50 ML IV SCH (09:01)
--- NOTE | 2018-10-07 19:45 | PROGRESS NOTE ---
DATE: 10/07/2018 SUBJECTIVE: Patient notes that she is feeling better. She has no current complaints. No fevers. PHYSICAL EXAMINATION: Vital Signs: Reviewed. She is awake, alert. She is in no distress. HEENT: Normocephalic. Neck: Supple. Cardiovascular: Regular rate. Chest: Clear. Abdomen: Soft. Extremities: Moves all extremities. Neurologic: No changes. ASSESSMENT: 1. Extended spectrum beta-lactamases negative bacteremia and pneumonia. 2. Septicemia, resolved. PLAN: We will continue the patient in the hospital. Continue fluids. Continue Rocephin. We will consult [facility] Building in the morning to assist with home IV Rocephin. cc: Josh Kaplan MD
[2018-10-08 06:31] LABS: HEMATOCRIT 28.7 % (37.0-47.0); INR 0.93; MCH 29.5 PG (27-31); MCHC 31.4 g/dL (33-37); MCV 94.1 FL (81-99); MPV 9.5 FL (7.4-10.4); PROTIME 12.9 Seconds (11.0-16.0); RBC 3.05 XMIL (4.2-5.4); RDW 18.5 % (11.5-14.5); WBC 6.47 X1000 (4.8-10.8)
[2018-10-08 06:40] LABS: AGAP 11; ALKALINE PHOSPHATASE 69 U/L (32-104); BUN 9 mg/dL (8-22); CALCIUM 8.4 mg/dL (8.8-10.2); CHLORIDE 101 mmol/L (98-107); COSMO 273; CREATININE 0.6 mg/dL (0.5-0.9); ESTIMATED GFR > 60; GLUCOSE 82 mg/dL (70-104); GOT 33 U/L (10-30); GPT 29 U/L (10-36); MAGNESIUM 1.4 mg/dL (1.5-2.7); SODIUM 138 mmol/L (136-145); TCO2 26 mmol/L (25-35); TOTAL PROTEIN 5.9 g/dL (6.3-8.3)
[2018-10-08] MEDS ORDERED: NS 250 ML ONE (08:11)
[2018-10-08] MEDS: ROCEPHIN 2 GM in NS 50 ML IV SCH (10:53)
[2018-10-08] MEDS: CELEXA PO SCH (10:54)
[2018-10-08] MEDS: PREDNISONE PO SCH (10:54)
[2018-10-08 16:54] VITALS: BP 113/55
--- NOTE | 2018-10-09 10:03 | DISCHARGE SUMMARY ---
ADMISSION DATE: 09/29/2018 DISCHARGE DATE: 10/08/2018 DISCHARGE DIAGNOSES: 1. Extended-spectrum B-lactamase negative bacteremia. 2. Extended-spectrum B-lactamase negative pneumonia. 3. Sepsis. 4. Abdominal pain. 5. Fever. 6. Nausea and vomiting. CONSULTATIONS: None. PROCEDURES: None. BRIEF HOSPITAL COURSE: The patient is a 72-year-old female who actually was just in the hospital for a urinary tract infection. She came back to the hospital with coughing, congestion, shortness of breath, fever, diagnosed with sepsis. She had a fever. We admitted her to the hospital. Blood and sputum cultures grew ESBL negative E. coli. Given the fact that she did have bacteremia, she needs to be on IV antibiotics for 14 days. She was continued on Rocephin until her culture was clear. A PICC line was placed. Thankfully, she will be discharged home. Her white count, which was 29, is back to normal at [id number]. She is no longer coughing. She is feeling better. DISPOSITION: The patient will be discharged home for 12 more days of IV Rocephin. She will follow up outpatient as needed. No changes were made in her home medications, diet, or activity. Greater than 30 minutes were spent. cc: Josh Kaplan MD
== END 2018-10-08 19:04 | disposition home health service (06) | DRG 871 ==
LOC: P.ED 17:20 → P.MEDSURG 20:16 → SUATTDRO 20:16 → P.EDIPHOLD 09-30 01:23 → P.ICU 09-30 14:10 → P.MEDSURG 10-02 09:33
PROVIDERS: ADMIT Family Medicine; ATTEND Family Medicine

== ENCOUNTER 2019-03-25 11:40 | Inpatient (IN) ==
--- NOTE | 2019-03-25 12:45 | Diag Imaging Result Doc PS360 ---
CHEST-PORTABLE - 03/25/2019 INDICATION: SYNCOPE COMPARISON: 09/29/2018 FINDINGS: The lungs are normally expanded and clear. Heart size and mediastinal contours are normal. No pneumothorax or pleural effusion. IMPRESSION: Negative exam. Electronically signed by Reggie Steven 03/25/2019 12:43 PM
[2019-03-25 12:58] LABS: URINE SOURCE CATH
[2019-03-25 13:16] LABS: BASO# 0.02 X1000 (0.0-0.2); BASO% 0.1 % (0.0-0.8); BILIRUBIN URINE NEGATIVE (NEGATIVE); BLOOD URINE TRACE (NEGATIVE); COLOR YELLOW; GLUCOSE URINE NEGATIVE (NEGATIVE); HEMATOCRIT 25.6 % (37.0-47.0); HEMOGLOBIN 7.8 g/dL (12.0-16.0); IMM GRAN# 0.06 X1000 (0.0-0.04); IMM GRAN% 0.4 % (0.0-0.5); KETONE URINE NEGATIVE (NEGATIVE); LEUKOCYTES URINE NEGATIVE (NEGATIVE); LYMPH# 0.43 X1000 (1.2-3.4); LYMPH% 2.7 % (20.5-51.1); MCH 28.5 PG (27-31); MCHC 30.5 g/dL (33-37); MCV 93.4 FL (81-99); MONO# 0.67 X1000 (0.11-0.59); MONO% 4.1 % (1.7-9.3); MPV 8.4 FL (7.4-10.4); NEUT# 15.02 X1000 (1.4-6.5); NEUT% 92.7 % (42.2-75.2); NITRITE URINE NEGATIVE (NEGATIVE); PH URINE 5.5; PLT 464 X1000 (130-400); PROTEIN URINE 50 mg/dL (NEGATIVE); RBC 2.74 XMIL (4.2-5.4); RDW 13.9 % (11.5-14.5); SP GRAVITY URINE 1.021; TURBIDITY URINE CLEAR (CLEAR); UROBILINOGEN URINE NORMAL (NORMAL)
[2019-03-25 13:18] LABS: UR EPITHELIAL CELLS <10 /HPF (<10); URINE BACTERIA NEGATIVE /HPF; URINE RBC <10 /HPF (<10); URINE WBC <10 /HPF (<10)
[2019-03-25 13:24] LABS: AGAP 15; ALKALINE PHOSPHATASE 100 U/L (32-104); BUN 14 mg/dL (8-22); CALCIUM 8.7 mg/dL (8.8-10.2); CHLORIDE 95 mmol/L (98-107); COSMO 272; CREATININE 0.8 mg/dL (0.5-0.9); ESTIMATED GFR > 60; GLUCOSE 118 mg/dL (70-104); GOT 13 U/L (10-30); GPT 6 U/L (10-36); POTASSIUM 3.7 mmol/L (3.5-5.1); SODIUM 135 mmol/L (136-145); TCO2 24 mmol/L (25-35); TOTAL PROTEIN 6.7 g/dL (6.3-8.3)
--- NOTE | 2019-03-25 14:03 | EKG Report ---
Test Performed on : 03/25/2019 1:16:20 PM Test Reason : SYNCOPE Blood Pressure : / mmHG Vent. Rate : 069 BPM Atrial Rate : 069 BPM P-R Int : 140 ms QRS Dur : 070 ms QT Int : 414 ms P-R-T Axes : 068 -44 058 degrees QTc Int : 443 ms Normal sinus rhythm. Possible Left atrial enlargement Left axis deviation Abnormal ECG When compared with ECG of 02-OCT-2018 20:55, Sinus rhythm. has replaced Atrial flutter. Vent. rate has decreased BY 78 BPM Criteria for Anterolateral infarct are no longer present T wave inversion no longer evident in Inferior leads T wave inversion no longer evident in Anterolateral leads Unconfirmed Result
[2019-03-25 14:10] LABS: ANISOCYTOSIS 1+; LYMPHS 7 % (21-51); MONO 3 % (1-9); SEGS 90 % (42-75)
[2019-03-25] MEDS ORDERED: ROCEPHIN 1 GM in NS 50 ML IV ONE (14:33)
--- NOTE | 2019-03-25 14:44 | PROVIDER DOCUMENTATION ---
This chart was entered by Juliana Adler Scribe, acting as scribe for Alhaji Valenzuela MD. HPI-General Adult - General Chief Complaint: Syncope Stated Complaint: WEAKNESS Time Seen by Provider: 03/25/19 12:16 Source: patient, family (daughter) Allergies/Adverse Reactions: Patient Allergies Allergy/AdvReac Type Severity Reaction Status Date / Time codeine [Codeine] Allergy Intermediate passing out Verified 03/25/19 11:47 Home Medications: Home Medication List Medication Instructions Recorded Confirmed Last Taken Type Ondansetron Odt [Zofran Odt] 4 mg PO BID PRN 12/16/14 03/25/19 09/06/15 History Citalopram [Celexa] 20 mg PO QAM #30 tablet 12/24/14 03/25/19 09/06/15 Rx Penicillin V Potassium 1 tab PO BID 03/25/19 03/25/19 Unknown History - History of Present Illness -Gen Adult Nature of Presenting Problems: 73yof presents to ED by EMS cc increased weakness, SOB, cough and 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 Daughter is at bedside and reports pt has been getting increasingly weaker since seeing Dr. Fernandez/PCP 2 wks ago and dx with bursitis of left hip. Pt has hx of anemia, cancer and lymphadema. Pt denies fever. Pt is A&Ox3 and in no apparent distress upon exam. Location of Pain/Injury: reports: generalized Quality of Pain: reports: aching Severity: reports: moderate Onset/Duration: reports: gradual (since ) Timing: reports: still present, changing over time Context/Activities at Onset: reports: light activity Modifying Factors: improves with: nothing Associated Symptoms: reports: cough, fatigue, shortness of breath, weakness Similar Symptoms Previously?: No Recently seen or treated by another doctor?: Yes (saw PCP/Dr. Fernandez 2wks ago) Review of Systems - Adult - REVIEW OF SYSTEMS - ADULT Constitutional: reports: see HPI, fatique. denies: fever, weight loss Eyes: reports: no symptoms reported Ears, Nose, Mouth & Throat: reports: no symptoms reported Cardiovascular: reports: see HPI. denies: chest pain, palpitations Respiratory: reports: see HPI, cough, shortness of breath. denies: wheezing Gastrointestinal: reports: no symptoms reported Genitourinary: reports: no symptoms reported Musculoskeletal: reports: no symptoms reported Integumentary: reports: no symptoms reported Neurological: reports: see HPI, loss of balance, syncope. denies: slurred speech Psychiatric: reports: no symptoms reported Endocrine: reports: no symptoms reported Hematologic/Lymphatic: reports: no symptoms reported Allergic/Immunologic: reports: no symptoms reported All Other Systems: Reviewed and Negative Past History - Adult - PAST MEDICAL HISTORY-ADULT Review of Records: reports: Nursing Assessment Review, Medications Reviewed, Social history reviewed & non-contributory. Major Childhood Illnesses: reports: denies history Cardiovascular: reports: HTN Respiratory: reports: denies history Gastrointestinal: reports: cancer (hx of colon/rectal), obstruction Obstetrical/Gynecological: reports: denies history Genitourinary: reports: denies history Musculoskeletal: reports: chronic pain Neurological: reports: denies history 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) Other Conditions: reports: cataract/glaucoma Additional History: lymphedema bilateral legs, left worse than right - PRIOR SURGERIES/PROCEDURES Surgical/Procedure History: reports: cholecystectomy, tonsillectomy, bowel surgery (colon resection), other (colostomy; cataract removal; central line) - PRIOR HOSPITALIZATIONS Prior Hospitalizations: reports: for similar symptoms - IMMUNIZATION STATUS Childhood Immunizations: See Nurse Assessment Flu Vaccine: See Nurse Assessment - FAMILY HISTORY Family History: reviewed, not pertinent - SOCIAL HISTORY Smoking: denies Physical Exam-General - PHYSICAL EXAM-ADULT Initial Vital Signs Reviewed: Yes - CONSTITUTIONAL General Appearance: alert, no apparent distress. negative: anxious, combative - EYES Eyes: PERRL/EOMI, pink conjunctivae. negative: photophobia - HEAD, EARS, NOSE, MOUTH & THROAT HENMT: normocephalic/atraumatic, moist mucous membranes. negative: angioedema - RESPIRATORY Respiratory: chest non-tender, lungs clear, normal breath sounds. negative: rhonchi, stridor - CARDIOVASCULAR Cardiovascular: normal peripheral pulses, regular rate, rhythm, no edema. negative: bradycardia, tachycardia - GASTROINTESTINAL (ABDOMEN) Abdominal Exam: normal bowel sounds, non tender, soft. negative: rebound - MUSCULOSKELETAL Extremity: swelling (lymphadema with left being chronically swollen). negative: deformity - SKIN Integumentary: normal color, normal turgor, warm/dry. negative: jaundice, rash - PSYCHIATRIC Psych/Mental Status: normal mood/affect, oriented x 3. negative: anxious, disheveled Progress - PLAN OF CARE/RESULTS Progress/Plan/Lab Results: Vital Signs - 8 hr 03/25/19 11:43 Temperature 97.5 F L Pulse Rate 82 Respiratory Rate 18 Blood Pressure 108/56 O2 Sat by Pulse Oximetry 100 Result Diagrams: 03/25/19 12:46 03/25/19 12:46 - EKG 1 Time of EKG reading by physician:: 13:19 EKG Read and Signed by:: Alhaji Valenzuela EKG Interpretation (*Must complete 3 of following elements*): Abnormal (possible left atrial enlargement) Rate: 69 Rhythm: NSR Erwin: left QRS: normal - XRAY 1 XRAY: Bilateral XRAY Study: Chest Impression: Abnormal (read as no acute /nl by radiology. might have some early infiltrates, leena sebastian-hilar on left.), See EMR Report (IMPRESSION: Negative exam. Electronically signed by Reggie Steven 03/25/2019 12:43 PM) - CONSULTS/PCP/HOSPITALIST Notification #1 *Consult/PCP/Hospitalist*: Dr. Fernandez Time Discussed: 14:44 Consult Disposition: Admit Departure - Departure Date of Disposition Decision: 03/25/19 Time of Disposition Decision: 14:31 DIAGNOSIS: Weakness, Near syncope Leukocytosis Qualifiers: Leukocytosis type: unspecified Qualified Code(s): D72.829 - Elevated white blood cell count, unspecified Pneumonia Qualifiers: Pneumonia type: due to unspecified organism Laterality: right Lung location: unspecified part of lung Qualified Code(s): J18.9 - Pneumonia, unspecified organism Anemia Qualifiers: Anemia type: unspecified type Qualified Code(s): D64.9 - Anemia, unspecified Disposition: ADMITTED INPATIENT 09 Certified Medical Emergency: Emergent Condition: Fair Referrals and Follow-Ups: Josh Kaplan MD [Primary Care Provider] - - Critical Care Note This patient required my direct & personal management of CC.: No Attestation - Physician/ [facility] Attestation Patient care was provided by Advanced Practice Provider:: No The physician spent face to face time with patient:: Yes Advanced Practice Provider documentation review:: Supervising physician onsite and consulted in the evaluation and care of this patient. The physician did have a face to face encounter with the patient. This chart was documented by the indicated scribe, (Juliana Adler Scribe) and accurately reflects the services I performed and decisions made by me, Alhaji Valenzuela MD, as attested by the provider's signature.
[2019-03-25] MEDS ORDERED: NS 1,000 ML IV ONE (16:43)
[2019-03-25] MEDS ORDERED: MAGNESIUM SULFATE 1 GM/D5W 1 GM/100 ML IVPB IV ONE (16:47)
[2019-03-25] MEDS ORDERED: ZOFRAN ODT PO PRN (17:12)
[2019-03-25] MEDS ORDERED: ZOFRAN IV PRN (18:09)
[2019-03-25] MEDS ORDERED: TYLENOL PO PRN (18:09)
[2019-03-25] MEDS ORDERED: VANCOMYCIN IV PER PHARMACY MISC SCH (18:15)
--- NOTE | 2019-03-25 18:52 | HISTORY AND PHYSICAL ---
PRIMARY CARE PHYSICIAN: Josh Kaplan MD CHIEF COMPLAINT: Syncope. HISTORY OF PRESENT ILLNESS: Ms. Blancas is a 73-year-old, female who presents with past medical history of chronic lower extremity lymphedema, colon cancer status post resection with colostomy, chronic depression, and chronic bacteremia infections. The patient states that this morning she was at an MD appointment at about 11 a.m., and she had a syncopal episode where her grandson caught her. She has also been having increasing weakness for the last every several days with altered mental status and feeling of malaise. The patient states that she has noticed that her left groin has been hurting her. The patient is noted to have an area of errythema with edema along with some scar tissue to the left groin area. The edema does feel hardened along with the scar tissue, and the errythema is mild. The patient does deny any fever, chills, flu-like symptoms, cough, congestion, neck pain, stiffness, excessive thirst, palpitation, chest pains, orthopnea, PND, dyspnea, nausea, vomiting, constipation, diarrhea, dysuria, hematuria, melena, joint pain or weakness or any other pertinent symptoms at this time. REVIEW OF SYSTEMS: A 10-point review of systems has been obtained, and all are negative except what is stated above in HPI. PAST MEDICAL HISTORY: 1. Chronic lower extremity lymphedema. 2. Colon cancer status post colon resection with colostomy. 3. Chronic depression. 4. Chronic bacteremia infections. PAST SURGICAL HISTORY: 1. Colon resection with colostomy due to colonic obstruction. 2. Cholecystectomy. 3. Tonsillectomy. 4. D and C. 5. Bilateral cataract surgery. SOCIAL HISTORY: The patient does live in [place] with her daughter. She denies any alcohol, tobacco, or illicit drug use. She denies any use of oxygen, CPAP or BiPAP use. She does not use a walker or cane for assistance. PATIENT'S PHARMACY: [facility] in [place]. ALLERGIES: Codeine. FAMILY HISTORY: Noncontributory. HOME MEDICATIONS: 1. Zofran ODT 4 mg p.o. b.i.d. p.r.n. 2. Celexa 20 mg p.o. every morning. 3. Penicillin V 500 mg p.o. b.i.d. PHYSICAL EXAM: VITAL SIGNS: Temperature 98.3, pulse rate 74, respiratory rate 18, blood pressure 107/57, O2 saturation 97% on room air. GENERAL: This is a 73-year-old, female. She is lying in the ER stretcher. She is well nourished and well developed. She is in no acute distress. HEENT: Atraumatic, normocephalic. Pupils equal, round, react to light. Mucous membranes are dry. NECK: Supple. No lymphadenopathy. Trachea midline. No JVD. CARDIOVASCULAR: Regular rate and rhythm. No gallops or rubs appreciated. There is a murmur noted in the midclavicular line. RESPIRATORY: Lung sounds are clear with equal chest excursion. Respirations are nonlabored. No accessory muscle usage. GASTROINTESTINAL: Abdomen is soft, nontender, nondistended. Bowel sounds present x4. GENITOURINARY: There is CV tenderness noted, especially to the left groin area. NEUROLOGIC: Patient is awake, alert and oriented, able to follow all commands appropriately. MUSCULOSKELETAL: Full distal strength noted. No abnormalities, no deformities. EXTREMITIES: No clubbing, no cyanosis. There is bilateral edema noted to the lower extremities; however, this seems slightly improved than usual according to the family members. The patient does have wrinkles noted in her legs, and legs do appear to be dry. DP and PT pulses are present and palpable. Edema noted to the left groin. SKIN: Very dry. It is intact, and it is warm. There is an area of edema noted to the left groin with erythema that is somewhat hardened. No rashes or bruises noted. No diaphoresis. IMPRESSION: 1. Syncopal episode. 2. Cellulitis to left groin. 3. Leukocytosis. 4. Anemia. 5. Dehydration. 6. Hypomagnesemia. 7. Chronic bacteremia infections. 8. Colon cancer, status post resection with colostomy. 9. Chronic depression. 10. Chronic lower extremity lymphedema. PLAN: We will admit this patient to the medical floor. We will place this patient on senior mobile solutions architect. We will do vital signs q.4 hours. We will do strict input and output. We will place this patient on a regular diet. We will place her on IV fluid hydration of normal saline at 75 mL an hour. I will restart her home medications. I will repeat her labs for in the morning. Urine culture and blood cultures have been obtained. We will start her on Vancomycin and Zosyn for IV antibiotics.We will await those results. I will place a Diaz catheter. I am going to replace her magnesium with 1 g of magnesium sulfate IV. I will recheck it in the morning. We possibly will have to transfuse her with a unit of blood if hemoglobin does not improve by in the morning. SCD's for DVT prophylaxis All other further recommendations pending hospital course and laboratory data. Dictated by DAVID Samayoa for Josh Kaplan MD cc: Josh Kaplan MD MTDD
[2019-03-25] MEDS: ZOSYN 3.375 GM in NS 50 ML IV SCH (19:13)
[2019-03-25 19:57] LABS: URINE SOURCE CATH
--- NOTE | 2019-03-25 19:57 | HISTORY AND PHYSICAL ---
ADDENDUM: Patient seen and examined by myself. Full note dictated and discussed with nurse practitioner. Patient presented to the hospital with increased syncope, fatigue, tiredness. Notes that she has not been feeling well for the past several days. Also states that she has an area in her left groin that seems to be worse. We are going to admit her to the hospital. It appears as though she has cellulitis around her previous scar tissue. We are going to watch her hemoglobin and hematocrit which currently are low. I expect that she may need transfusion as she has in the past. We are going to place her on Zosyn, vancomycin, Diaz catheter, and will follow. cc: Josh Kaplan MD
[2019-03-25 20:00] LABS: BILIRUBIN URINE NEGATIVE (NEGATIVE); BLOOD URINE SMALL (NEGATIVE); COLOR YELLOW; GLUCOSE URINE NEGATIVE (NEGATIVE); KETONE URINE NEGATIVE (NEGATIVE); LEUKOCYTES URINE NEGATIVE (NEGATIVE); NITRITE URINE NEGATIVE (NEGATIVE); PROTEIN URINE 70 mg/dL (NEGATIVE); SP GRAVITY URINE 1.027; TURBIDITY URINE HAZY (CLEAR); UROBILINOGEN URINE NORMAL (NORMAL)
[2019-03-25 20:20] LABS: UR EPITHELIAL CELLS >10 /HPF (<10); URINE BACTERIA 1+ /HPF; URINE CASTS GRANULAR PRESENT; URINE RBC <10 /HPF (<10); URINE WBC <10 /HPF (<10); URINE YEAST NONE SEEN
[2019-03-25 20:21] LABS: URINE CRYSTALS NONE SEEN
[2019-03-25] MEDS: PEN VK PO SCH (20:24)
[2019-03-25] MEDS: VANCOMYCIN 1 GM/NS 1 GM/250 ML IVPB IV SCH (20:24)
[2019-03-26] MEDS: ZOSYN 3.375 GM in NS 50 ML IV SCH ×4 (00:07→18:31)
[2019-03-26 07:10] LABS: HEMATOCRIT 23.8 % (37.0-47.0); MCHC 29.4 g/dL (33-37); MCV 95.2 FL (81-99); RBC 2.5 XMIL (4.2-5.4); RDW 14.2 % (11.5-14.5); WBC 11.73 X1000 (4.8-10.8)
[2019-03-26 07:30] LABS: AGAP 12; ALBUMIN 2.4 g/dL (3.5-5.0); ALKALINE PHOSPHATASE 90 U/L (32-104); BUN 15 mg/dL (8-22); CALCIUM 8.4 mg/dL (8.8-10.2); CHLORIDE 100 mmol/L (98-107); COSMO 277; CREATININE 0.8 mg/dL (0.5-0.9); ESTIMATED GFR > 60; GLUCOSE 106 mg/dL (70-104); GOT 10 U/L (10-30); GPT 5 U/L (10-36); MAGNESIUM 1.7 mg/dL (1.5-2.7); POTASSIUM 3.7 mmol/L (3.5-5.1); SODIUM 138 mmol/L (136-145); TCO2 26 mmol/L (25-35); TOTAL PROTEIN 6.5 g/dL (6.3-8.3)
[2019-03-26] MEDS: PEN VK PO SCH ×2 (10:02→20:20)
[2019-03-26] MEDS: CELEXA PO SCH (10:02)
[2019-03-26] MEDS: NS 1,000 ML IV SCH (19:17)
[2019-03-27] MEDS: ZOSYN 3.375 GM in NS 50 ML IV SCH ×3 (00:09→21:28)
[2019-03-27] MEDS: VANCOMYCIN 1 GM/NS 1 GM/250 ML IVPB IV SCH (01:15)
[2019-03-27 05:55] LABS: ESTIMATED GFR > 60
[2019-03-27 06:07] LABS: AGAP 13; ALBUMIN 1.8 g/dL (3.5-5.0); ALKALINE PHOSPHATASE 76 U/L (32-104); BUN 13 mg/dL (8-22); CALCIUM 7.9 mg/dL (8.8-10.2); CHLORIDE 102 mmol/L (98-107); COSMO 268; CREATININE 0.6 mg/dL (0.5-0.9); GLUCOSE 100 mg/dL (70-104); GOT 11 U/L (10-30); GPT < 5 U/L (10-36); MAGNESIUM 1.5 mg/dL (1.5-2.7); POTASSIUM 3.8 mmol/L (3.5-5.1); SODIUM 134 mmol/L (136-145); TCO2 20 mmol/L (25-35)
[2019-03-27 06:25] LABS: HEMOGLOBIN 6.5 g/dL (12.0-16.0); MCH 29.1 PG (27-31); MCHC 29.5 g/dL (33-37); MCV 98.7 FL (81-99); MPV 8.9 FL (7.4-10.4); RBC 2.23 XMIL (4.2-5.4); RDW 14.5 % (11.5-14.5); WBC 10.5 X1000 (4.8-10.8)
[2019-03-27] MEDS ORDERED: NS 500 ML IV ONE (06:58)
--- NOTE | 2019-03-27 07:48 | PROGRESS NOTE ---
DATE: 03/26/2019 SUBJECTIVE: Patient notes that her left eye is feeling a little bit better. She denies any new complaints, and states she is really not thirsty and has not been drinking very well. PHYSICAL EXAMINATION: Vital Signs: Temperature 98, pulse 59, respiratory rate 18, and BP 107/48. General: Patient is pleasant. She is in no distress. Lying flatly in bed. HEENT: Normocephalic. Neck: Supple. Cardiovascular: Regular rate. Chest: Clear. Abdomen: Soft. Extremities: Moves all extremities. Skin: Her left thigh area is still indurated, tender, but is improving slightly. ASSESSMENT: 1. Cellulitis of the left thigh. 2. Chronic lymphedema bilateral lower extremities. 3. History of colon cancer status post resection. 4. Chronic depression, which certainly is hampering her ability to treat. 5. Leukocytosis. 6. Dehydration. She is on IV fluids. 7. Hypomagnesemia resolved. PLAN: We will continue antibiotics. Continue to follow. Further orders as needed. cc: Josh Kaplan MD
[2019-03-27] MEDS: PEN VK PO SCH ×2 (09:05→21:28)
[2019-03-27] MEDS: CELEXA PO SCH (09:05)
[2019-03-27] MEDS: NS 1,000 ML IV SCH ×2 (09:06→22:58)
--- NOTE | 2019-03-27 22:10 | PROGRESS NOTE ---
DATE: 03/27/2019 SUBJECTIVE: The patient without any new complaints. States that she is feeling okay. States she is still not feeling not drinking very much. PHYSICAL EXAM: Vital signs: Temperature 98 degrees, pulse 59, respiratory 20, BP 107/48. General: Patient is an elderly female who is in no current respiratory distress, lying in bed. HEENT: Normocephalic. Neck: Supple. Cardiovascular: Regular rate. Chest: Clear. Abdomen: Soft, nondistended. Extremities: Moves all extremities. Neurologic: No changes. Skin: Her indurated area in the left inguinal region is actually improved. It is still not draining. ASSESSMENT: 1. Anemia. Hemoglobin and hematocrit has dropped slightly to 6 and 22. 2. Leukocytosis, improved. White count is down from 16 down to 10. 3. Hypomagnesemia, resolved. 4. Syncopal episode. 5. Chronic lymphedema. 6. Colon cancer by history. 7. Chronic depression. 8. Chronic bacteremia infections. 9. Dehydration. PLAN: We will continue fluids, type and cross and transfuse 2 units, continue antibiotics and we will follow. cc: Josh Kaplan MD
[2019-03-28] MEDS: ZOSYN 3.375 GM in NS 50 ML IV SCH ×3 (06:30→18:20)
[2019-03-28 07:42] LABS: AGAP 12; ALBUMIN 2.4 g/dL (3.5-5.0); ALKALINE PHOSPHATASE 85 U/L (32-104); BUN 10 mg/dL (8-22); CALCIUM 8.2 mg/dL (8.8-10.2); CHLORIDE 103 mmol/L (98-107); COSMO 275; CREATININE 0.5 mg/dL (0.5-0.9); ESTIMATED GFR > 60; GLUCOSE 97 mg/dL (70-104); GOT 11 U/L (10-30); GPT 5 U/L (10-36); MAGNESIUM 1.4 mg/dL (1.5-2.7); POTASSIUM 3.4 mmol/L (3.5-5.1); SODIUM 138 mmol/L (136-145); TCO2 23 mmol/L (25-35); TOTAL PROTEIN 6.5 g/dL (6.3-8.3)
[2019-03-28 07:49] LABS: HEMATOCRIT 30.1 % (37.0-47.0); HEMOGLOBIN 9.3 g/dL (12.0-16.0); MCH 28.5 PG (27-31); MCHC 30.9 g/dL (33-37); MCV 92.3 FL (81-99); MPV 8.7 FL (7.4-10.4); RBC 3.26 XMIL (4.2-5.4); RDW 14.8 % (11.5-14.5); WBC 9.53 X1000 (4.8-10.8)
[2019-03-28] MEDS ORDERED: MAGNESIUM SULFATE 2 GM/S.W.I. 2 GM/50 ML IVPB IV ONE (08:13)
[2019-03-28] MEDS: PEN VK PO SCH ×2 (10:25→21:35)
[2019-03-28] MEDS: DOXYCYCLINE PO SCH ×2 (10:25→21:35)
[2019-03-28] MEDS: CELEXA PO SCH (10:25)
[2019-03-28] MEDS: COLACE PO SCH ×2 (10:26→21:35)
[2019-03-28] MEDS: NS 1,000 ML IV SCH ×2 (13:30→15:07)
--- NOTE | 2019-03-28 22:07 | PROGRESS NOTE ---
DATE: 03/28/2019 SUBJECTIVE: Patient notes that she is feeling a lot better. Still having some weakness and fatigue. Denies any chest pains or palpitations. PHYSICAL EXAMINATION: Vital Signs: Reviewed. Temperature 98 degrees, pulse 80, respiratory 20, BP 120/50. General: Patient is pleasant. She is in no distress. HEENT: Normocephalic. Neck: Supple. Cardiovascular: Regular rate. Chest: Clear. Abdomen: Soft. Extremities: Moves all extremities. ASSESSMENT: 1. Hypomagnesemia. 2. Moderate protein-calorie malnutrition. 3. Anemia stable after transfusion. Hemoglobin 9 and hematocrit 30. 4. Cellulitis. PLAN: We will continue patient in the hospital and follow. Hopefully, she can discharge home over the next day or two. cc: Josh Kaplan MD
[2019-03-29] MEDS: ZOSYN 3.375 GM in NS 50 ML IV SCH ×2 (00:22→05:20)
[2019-03-29] MEDS: CELEXA PO SCH (08:25)
[2019-03-29] MEDS: PEN VK PO SCH ×2 (08:25→21:19)
[2019-03-29] MEDS: DOXYCYCLINE PO SCH ×2 (08:26→21:19)
[2019-03-29] MEDS: COLACE PO SCH ×2 (08:26→21:19)
--- NOTE | 2019-03-30 05:12 | HISTORY AND PHYSICAL ---
SUBJECTIVE: Patient notes that she is feeling a little bit better. Denies any fevers or chills. She has not really been out of bed. Denies any chest pain or palpitations. PHYSICAL EXAMINATION: VITAL SIGNS: Temperature 98 degrees, pulse 64, respiratory rate 18, BP 125/46. GENERAL: Patient is pleasant. She is in no distress. Does note that her inguinal region still is indurated, still swollen, laminating machine tender more so than usual. CARDIOVASCULAR: Regular rate. CHEST: Clear. ABDOMEN: Soft. EXTREMITIES: Moves all extremities. ASSESSMENT: 1. Syncope, resolved. 2. Cellulitis left groin with indurated area. We will continue to follow. Certainly may require surgical drainage although does not appear so at the moment. 3. Leukocytosis, resolved. White count has dropped from 16 down to 10. 4. Anemia, improved after transfusion. 5. Hypomagnesemia, resolved. 6. Chronic bacteremia. Her recent blood culture in the hospital is stable. 7. Colon cancer status post resection with colostomy. 8. Chronic lower extremity edema. PLAN: We are going to continue patient in the hospital. Continue to follow. Continue antibiotics. Hopefully, she can improve and discharge home over the next 1 or 2 days. cc: Josh Kaplan MD
[2019-03-30] MEDS: PEN VK PO SCH ×2 (08:46→20:13)
[2019-03-30] MEDS: DOXYCYCLINE PO SCH (08:47)
[2019-03-30] MEDS: COLACE PO SCH ×2 (08:47→20:14)
[2019-03-30] MEDS: CELEXA PO SCH (08:47)
[2019-03-30] MEDS: CLINDAMYCIN 900 MG/D5W 900 MG/50 ML IVPB IV SCH ×2 (10:58→18:15)
--- NOTE | 2019-03-30 13:15 | Diag Imaging Result Doc PS360 ---
US NON VASC EXTREMITY LIMITED - 03/30/2019 INDICATION: indurated area/left groin/ r/o abscess TECHNIQUE: Ultrasound left groin soft tissues COMPARISON: None FINDINGS: There is some mild nonspecific cutaneous edema. No drainable fluid collections. No mass or adenopathy. IMPRESSION: Cutaneous edema. Electronically signed by Reggie Steven 03/30/2019 1:13 PM
--- NOTE | 2019-03-30 19:00 | PROGRESS NOTE ---
DATE: 03/30/2019 SUBJECTIVE: Patient notes that the indurated swollen tender area in her left groin area has actually worsened some. States it is hurting more. Denies any fevers or chills. PHYSICAL EXAMINATION: Temperature 98 degrees, pulse 58, respiratory 20, BP 132/60.General: Patient is pleasant, in no distress. HEENT: Normocephalic. Neck: Supple. Cardiovascular: Regular rate. Chest: Clear. Abdomen: Soft. Extremities: Moves all extremities. Skin: The indurated area of her left groin is baller tender, hard to appreciate if it is worse. ASSESSMENT: 1. Anemia of chronic disease. 2. Leukocytosis, actually improved. 3. Cellulitis, left groin. 4. Chronic lower extremity edema. 5. History of colon cancer status post colostomy. PLAN: We are going to stop her doxycycline and was making her nauseated, placed her back on IV clindamycin. We will attempt to get an ultrasound of her leg to see if there is any abscess formation and will follow. cc: Josh Kaplan MD
[2019-03-31] MEDS: CLINDAMYCIN 900 MG/D5W 900 MG/50 ML IVPB IV SCH ×2 (02:21→10:20)
[2019-03-31 05:29] VITALS: BP 122/61
[2019-03-31] MEDS: PEN VK PO SCH (08:51)
[2019-03-31] MEDS: COLACE PO SCH (08:51)
[2019-03-31] MEDS: CELEXA PO SCH (08:51)
--- NOTE | 2019-04-01 05:19 | DISCHARGE SUMMARY ---
ADMISSION DATE: 03/25/2019 DISCHARGE DATE: 03/31/2019 DISCHARGE DIAGNOSIS: 1. Cellulitis, left thigh. 2. Leukocytosis, resolved. 3. Anemia of chronic disease, improved after transfusion. 4. Hypomagnesemia. 5. Chronic venous stasis with frequent bacterial infections in her lower extremities. CONSULTATIONS: None. PROCEDURES: None. BRIEF HOSPITAL COURSE: The patient is a 73-year-old female who was admitted secondary to leukocytosis and anemia. Her hemoglobin and hematocrit did drop to 6 and 22. She was transfused 2 units at that point. Her blood count is back to normal. Her syncope has resolved. She is able to ambulate. She did have some mild dehydration which was easily resolved as well as mild hypomagnesemia. She was placed on antibiotics. Unfortunately, doxycycline seemed to upset her stomach. She was switched over to clindamycin. DISPOSITION: She will continue her home medications as listed on the HPI without any changes with the addition of clindamycin for 7 days. She will follow up outpatient to have her labs rechecked. cc: Josh Kaplan MD
== END 2019-03-31 15:07 | disposition home or self-care (01) | DRG 603 ==
LOC: P.ED 11:40 → P.MEDSURG 16:46
PROVIDERS: ATTEND Family Medicine